=== PATIENT | male | born 1945 | race Caucasian/White ===

== ENCOUNTER 2021-12-12 11:46 | Outpatient (CLI) | payer OTHER, SELFPAY ==
--- OUTSIDE RECORDS SUMMARY | 2021-12-12 08:59 | XMS_ITS | Encounter Summary ---
:1945 Author Organization [facility] Address [address] [place] [address] Care Team Providers Name Role Phone Eric Cervantes Primary Care Provider Unavailable Reason for Visit Reason Comments [facility] Encounter Details Date Type Department Care Team Description 01/20/2007 Office Visit [facility] in [place] Billy Arcos [facility] [address] [place] [address] Social History Tobacco Use Types Packs/Day Years Used Date Smoking Tobacco: Never Alcohol Use Standard Drinks/Week Comments Yes 3.3 (1 standard drink = 0.6 oz pure alco hol) occ glass wine Sex Assigned at Date Recorded Male 06/16/2020 9:59 AM CDT documented as of this encounter Plan of Treatment Not on filedocumented as of this encounter Visit Diagnoses Not on filedocumented in this encounter Care Teams Medical Cash Poster Relationship Specialty Start Date End Date Eric Cervantes PCP - General 08/29/04 04/13/15 documented as of this encounter
[2021-12-12 11:44] LABS: Albumin* 4.7 g/dL (3.3-5.0); Chloride* 103 mmol/L (96-114)
[2021-12-12 11:45] LABS: Potassium* 3.9 mmol/L (3.6-5.1); Sodium* 138 mmol/L (135-149)
[2021-12-12 11:47] LABS: Carbon Dioxide* 25 mmol/L (20-32); Cholesterol* 163 mg/dL (90-199); Creatinine* 1.4 mg/dL (0.5-1.5); Estimated Glomerular Filt Rate 53 ml/min
[2021-12-12 11:48] LABS: Alanine Aminotransferase* 24 U/L (4-50); Alkaline Phosphatase* 60 U/L (40-150); Aspartate Amino Transferase* 30 U/L (12-35); Bilirubin Total* 0.9 mg/dL (0.1-1.5); Blood Urea Nitrogen* 25 mg/dL (7-30); Calcium* 9.9 mg/dL (8.4-10.6); Glucose* 112 mg/dL (60-115); HDL Cholesterol* 52 mg/dL (>=40); LDL Cholesterol Calculated 95 mg/dL (<100); Total Protein* 7.4 g/dL (6.0-8.3); Triglycerides* 80 mg/dL (40-149)
[2021-12-12 12:18] LABS: PSA Screen* 0.17 ng/mL (0.10-4.00)
== END 2021-12-12 11:47 | disposition home or self-care (01) ==
PROVIDERS: PCP Family Medicine; Visit Provider Family Medicine
DX: E78.5 Hyperlipidemia, unspecified (principal); I10 Essential (primary) hypertension; R73.01 Impaired fasting glucose; E66.9 Obesity, unspecified; Z12.5 Encounter for screening for malignant neoplasm of prostate
CPT/HCPCS: 80053; 80061; 84153

== ENCOUNTER 2022-06-26 09:26 | Outpatient (CLI) | payer MEDICARE, SELFPAY | END 2022-06-26 09:27 | disposition home or self-care (01) | LOC: NFLDREF 09:27 | PROVIDERS: PCP Family Medicine; Visit Provider Family Medicine | DX: I10 Essential (primary) hypertension (principal); E78.5 Hyperlipidemia, unspecified | CPT/HCPCS: 80053 ==

== ENCOUNTER 2022-12-19 10:02 | Outpatient (CLI) | payer MEDICARE, SELFPAY | END 2022-12-19 10:03 | disposition home or self-care (01) | LOC: NFLDREF 12-23 02:20 | PROVIDERS: PCP Family Medicine; Referring Provider Family Medicine; Visit Provider Family Medicine | DX: E78.5 Hyperlipidemia, unspecified (principal); I10 Essential (primary) hypertension; R73.01 Impaired fasting glucose; E66.9 Obesity, unspecified; Z13.9 Encounter for screening, unspecified; C61 Malignant neoplasm of prostate | CPT/HCPCS: 80053; 80061; 84153 ==

== ENCOUNTER 2023-12-16 08:20 | Outpatient (CLI) | payer MEDICARE, SELFPAY ==
--- OUTSIDE RECORDS SUMMARY | 2023-12-18 11:25 | XMS_ITS | Clinical Summary ---
Author Organization [facility] Address [address] [place] [address] Care Team Providers Care Elevator Pilot Name Role Phone Unavailable Primary Care Provider Unavailabl e Source Comments Patient records contain information from all sites at [facility]. For routine questions regarding patient records, call [phone] during business hours, M-F 8:00 AM - 5:00 PM Central Time. Record requests for emergency care only can be directed to [phone] at any time.[facility] Allergies Active Allergy Reactions Criticality Noted Date Comments Hydrocodone Rash 05/22/2013 HYDROCODONE - Adverse reactions Medications lisinopril (PRINIVIL,ZESTRI L) 10 mg tablet 09/22/2017 Act hoa sildenafil (REVATIO) 20 mg tablet Take one tab daily 02/25/2017 Active sucralfate (CARAFATE) 1 gram tablet 09/22/2017 Active triamterene-hydr oCHLOROthiazide (DYAZIDE) 37.5-25 mg per capsule 09/22/2017 Active omeprazole (PriLOSEC) [address] capsule daily. Active rosuvastatin (CRESTOR) 5 mg tablet 12/23/2019 Active KRILL OIL ORAL Take by mouth daily. Active Active Problems Problem Noted Date Diagnosed Date Hypertension Essential Benign 05/22/2013 Overview (07/16/2016): Benign Essential Hypertension Essential hypertension, benign Chronic Kidney Disease Stage 3 Glomerular Filtration Rate 30 To 59 05/22/2013 Overview (07/16/2016): Chronic Kidney Disease, Stage III (Moderate) Chronic kidney disease, stage III (moderate) CR 1.27 01/22/2010 GFRESTIMATED 57 01/22/2010 Family History Medical History Relation Name Comments Melanoma Cousin Asthma Father Ambrocio Hypertension Mother jerzy Melanoma Paternal Cousin 1 Melanoma Paternal Cousin 2 Melanoma Paternal Cousin 3 Melanoma Paternal Cousin 4 Relation Name Status Comments Cousin Father Ambrocio Mother jerzy Paternal Cousin 1 Alive Paternal Cousin 2 Alive Paternal Cousin 3 Alive Paternal Cousin 4 Alive Social History Tobacco Use Types Packs/Day Years Used Date Smoking Tobacco: Never Smokeless Tobacco: Never Alcohol Use Standard Drinks/Week Comments Yes 30 (1 standard drink = 0.6 oz pu re alcohol) Humiliation, Afraid, Rape, and Kick questionnair e Answer Date Recorded Within the last year, have y ou been afraid of your partner or ex-partner? No 07/02/2022 Within the last year, have y ou been humiliated or emotionally abused in other ways by your partner or ex-partner? No Within the last year, have y ou been kicked, hit, slapped, or otherwise physically hurt by your partner or ex-partner? No 07/02/2022 Within the last year, have y ou been raped or forced to have any kind of sexual activity by your partner or ex-partner? No 07/02/2022 Social Connection and Isolat ion Panel [NHANES] Answer Date Recorded In a typical week, how many times do you talk on the phone with family, friends, or neighbors? Twice a week 07/02/2022 How often do you get togethe r with friends or relatives? Once a week 07/02/2022 How often do you attend chur or christianity services? 1 to 4 times per year 07/02/2022 Do you belong to any clubs o r organizations such as gnosticist groups, unions, fraternal or athletic groups, or school groups? Yes 07/02/2022 How often do you attend meet ings of the clubs or organizations you belong to? More than 4 times per year 07/02/2022 Are you , , di vorced, , never , or living with a partner? 07/02/2022 AUDIT-C Answer Date Recorded Q1: How often do you have a drink containing alc ohol? 2-3 times a week 07/02/2022 Q2: How many drinks containi ng alcohol do you have on a typical day when you are drinking? 1 or 2 07/02/2022 Q3: How often do you have si x or more drinks on one occasion? Never 07/02/2022 Overall Financial Resource Strain (CARDIA) Answe r Date Recorded How hard is it for you to pa y for the very basics like food, housing, medical care, and heating? Not very hard 07/02/2022 [facility] of Occupat ional Health - Occupational Stress Questionnaire Answer Date Recorded Do you feel stress - tense, restless, nervous, or anxious, or unable to sleep at night because your mind is troubled all the time - these days? Only a little 07/02/2022 Exercise Vital Sign Answer Date Recorde d On average, how many days pe r week do you engage in moderate to strenuous exercise (like a brisk walk)? 3 days 07/02/2022 On average, how many minutes do you engage in exercise at this level? 60 min 07/02/2022 Hunger Vital Sign Answer Date Recorded Within the past 12 months, y ou worried that your food would run out before you got the money to buy more. Never true 07/03/19 23 Within the past 12 months, t he food you bought just didn't last and you didn't have money to get more. Never true 07/02/2022 PRAPARE - Transportation Answer Date Re corded In the past 12 months, has l ack of transportation kept you from medical appointments or from getting medications? No 10/2022 In the past 12 months, has l ack of transportation kept you from meetings, work, or from getting things needed for daily living? No 07/02/2022 Housing Stability Vital Sign Answer Luis E e Recorded In the last 12 months, was t here a time when you were not able to pay the mortgage or rent on time? No 07/02/2022 In the last 12 months, how many places have you lived? 1 07/02/2022 In the last 12 months, was t here a time when you did not have a steady place to sleep or slept in a alf (including now)? No 07/02/2022 Nutrition Answer Date Recorded On average, how many serving s of fruits and vegetables do you eat per day (serving size is equal to 1 cup or approximately the size of a tennis ball)? 0-1 07/02/2022 Dental Answer Date Recorded Dental: Regular Dentist Yes 02/24/19 Employment Answer Date Recorded Employment status N/A 07/02/2022 Education Answer Date Recorded What is the highest level of school you have completed or the highest degree you have received? Master's degree (e.g., MA, MS, Keysha, MEd, SALES APPOINTMENT COORDINATOR, CHERI) 02/24/2021 Sex and Gender Information Value Date Recorded Sex Assigned at Male 02/24/2021 10:06 AM OUTBOARD MOTOR INSPECTOR Legal Sex Male 9:54 AM OUTBOARD MOTOR INSPECTOR Gender Identity Male 02/24/2021 10:06 AM OUTBOARD MOTOR INSPECTOR Sexual Orientation Straight 02/24/2021 10 :06 AM OUTBOARD MOTOR INSPECTOR Last Filed Vital Signs Vital Sign Reading Time Taken Comments Blood Pressure 128/90 05/03/2021 9:00 AM OUTBOARD MOTOR INSPECTOR Pulse 59 05/03/2021 9:00 AM OUTBOARD MOTOR INSPECTOR Temperature - - Respiratory Rate - - Oxygen Saturation - - Inhaled Oxygen Concentration - - Weight - - Height - - Body Mass Index - - Plan of Treatment Upcoming Encounters Date Type Department Care Team (Late st Contact Info) Description 01/26/2024 11:15 AM OUTBOARD MOTOR INSPECTOR Office Visit Department of Dermatology in [address] [phone] Alejandro Shanks M.D. [address] [place] [phone] Discharge Disposition: Home or Self Care Health Maintenance Due Date Last Done Comments Hepatitis C Screening 1945 Office Visit for Blood Press ure Check / Re-check 1945 Creatinine Level (Kidney Fun ction Test) 08/09/2021 08/09/2020 Potassium Level 08/09/2021 08/09/2020 Sodium Level 08/09/2021 08/09/2020 Depression Screening (Annual PHQ-2) 02/24/2023 Fall Risk Screen (Annual) 02/24/2023 COVID-19 Vaccine (2023-2 5 season) 2023 11/12/2022, 11/05/2021, 06/04/2021, Additional history exists Influenza Vaccine (#1) 2023 3, 11/05/2021, 11/29/2020, Additional history exists DTaP,Tdap,and Td Vaccines (2 - Td or Tdap) 11/26/2023 11/25/2013, 08/15/2013 Colonoscopy Discontinued 08/29/2004 Colorectal Cancer Screening Discontinued Pneumococcal vaccine (65+ years) Completed 11/22/19 15, 01/10/2012 Zoster Vaccines Completed 01/11/2020, 10/06/2019 RSV vaccine - (32-3 6 weeks) or 60+ years Completed 12/10/2022 CT Colonography Discontinued Cologuard Discontinued FIT Discontinued Insurance [facility]
--- OUTSIDE RECORDS SUMMARY | 2023-12-18 11:25 | XMS_ITS | Continuity of Care Document ---
Author Organization [facility] Address [address] [place] [address] [address] [place] [address] Phone Care Team Providers Care Supervisor Metal Cans Name Role Phone Corey BEAVERS, Amijasmeet Unavailable Unavailable Procedures Procedure Date Office consultation, moderate 0 X-ray exam of neck spine2-3 views Advance Directives Directive Yes / No Effective Date File Name No Information Encounters Encounter Description Practice Location Reason(s) For Visit Diagnoses Date Provider Providers Copied on Encounter [facility], [address] [place] [address], [place], [address], [place] tel:[phone] [facility] No Information 2 Corey Live. [facility], [address] [place] [address] [address], [place], [place], [id number], [place]. tel:[phone] Office consultation, moderate [facility], [address] [place], [place] [address], [place], [address], [place] tel:[phone] [facility] No Information 0 Virgilio Rojas. [facility], [address] [facility] , [place], [address], [place]. tel:[phone] Referring Provider: Last Donohue, [facility] [address] [place] [address], [address]. tel:[phone] Family History Family Member Type Diagnosis Age At Onset No Information Payers Payer name Insurance type Covered democrat ID Hany osborne(s) [facility] [id number] Social History Type Description Quantity Date Captured Comments Sex Male Smoking Status No Information Chief Complaint And Reason For Visit No Information Reason For Referral Reason For Referral No Information History Of Present Illness Encounter Date Complaint History Of Prese nt Illness No Information Functional Status Date Functional Assessmen t No Information Instructions Date Instruction Additional Infor mation No Information Assessments Type Assessment Date No Information Patient Care Teams Name Effective Dates (start - stop) Status Members No Information
--- OUTSIDE RECORDS SUMMARY | 2023-12-18 11:25 | XMS_ITS ---
Author Organization [facility] Address [address] [place] [address] Care Team Providers Care Egg Grader Name Role Phone Unavailable Unavailable Unavailable Surgery Details Not on file Complications Check Surgery Details section. Procedure Estimated Blood Loss Check Surgery Details section. Procedure Findings Check Surgery Details section. Procedure Specimens Taken Check Surgery Details section.
--- OUTSIDE RECORDS SUMMARY | 2023-12-18 11:25 | XMS_ITS | Referral Summary ---
Author Organization [facility] Address [address] [place] [address] Care Team Providers Care Manager Wireless Name Role Phone Unavailable Primary Care Provider Unavailabl e Source Comments Patient records contain information from all sites at [facility]. For routine questions regarding patient records, call [phone] during business hours, M-F 8:00 AM - 5:00 PM Central Time. Record requests for emergency care only can be directed to [phone] at any time.[facility] Allergies Active Allergy Reactions Criticality Noted Date [...] (moderate) CR 1.27 01/22/2010 GFRESTIMATED 57 01/22/2010 Social History Tobacco Use Types Packs/Day Years [...] 07/02/2022 How often do you attend chur ch or sikhism services? 1 to 4 times per year 07/02/2022 Do you belong to any clubs o r organizations such as adventist groups, unions, fraternal or athletic groups, or [...] care, and heating? Not very hard 07/02/2022 [facility] [place] of Occupat ional Health - Occupational Stress [...] place to sleep or slept in a longterm (including now)? No 07/02/2022 Nutrition Answer Date [...] Master's degree (e.g., MA, MS, Keysha, MEd, CORE PLACER, CHERI) 02/24/2021 Sex and Gender Information Value Date Recorded Sex Assigned at Male 02/24/2021 10:06 AM BLAST FURNACE SUPERVISOR Legal Sex Male 9:54 AM BLAST FURNACE SUPERVISOR Gender Identity Male 02/24/2021 10:06 AM BLAST FURNACE SUPERVISOR Sexual Orientation Straight 02/24/2021 10 :06 AM BLAST FURNACE SUPERVISOR Last Filed Vital Signs Vital Sign Reading Time Taken Comments Blood Pressure 128/90 05/03/2021 9:00 AM BLAST FURNACE SUPERVISOR Pulse 59 05/03/2021 9:00 AM BLAST FURNACE SUPERVISOR Temperature - - Respiratory Rate - - Oxygen Saturation - - Inhaled Oxygen Concentration - - Weight - - Height - - Body Mass Index - - Plan of Treatment Upcoming Encounters Date Type Department Care Team (Late st Contact Info) Description 01/26/2024 11:15 AM BLAST FURNACE SUPERVISOR Office Visit Department of Dermatology in [address] [phone] Alejandro Shanks M.D. [address] [place] [phone] Discharge Disposition: Home or Self Care Insurance [facility]
--- OUTSIDE RECORDS SUMMARY | 2023-12-18 11:26 | XMS_ITS | Encounter Summary ---
Author Organization [facility] Address [address] [place] [address] Care Team Providers Care Hospitalist Physician Name Role Phone Lori Wyatt MD Primary Care Provider Bennett Morse MD Unavailable Adelaida Winter MD Unavailable Unav ailable Heber Trejo MD Unavailable [phone] Kamila Boggs RN Unavailable [phone] Lori Wyatt MD Unavailable Heber Trejo MD Unavailable Tammy Maier CNP Unavailable Polly Wylie PA-C Unavailable [phone] Encounter Details Date Type Department Care Team (Late st Contact Info) Description 02/25/2017 [facility] Medical Advice [facility] and [facility] [address] [place] [address] Heber Trejo MD [address] [facility] [address] [place] [address] Social History Tobacco Use Types Packs/Day Years Used Date Smoking Tobacco: Never Smokeless Tobacco: Never Alcohol Use Standard Drinks/Week Comments Yes 0 (1 standard drink = 0.6 oz pur e alcohol) occ glass wine Sex and Gender Information Value Date Recorded Sex Assigned at Male 06/16/2020 9:59 AM CDT Legal Sex Male 4:14 AM PAN GREASER Gender Identity Male 06/16/2020 9:59 AM CDT Sexual Orientation Not on file documented as of this encounter Plan of Treatment Not on file documented as of this encounter Visit Diagnoses Not on filedocumented in this encounter Care Teams Hospitalist Physician Relationship Specialty Start Date End Date Lori Wyatt MD [facility] [address] [place] [address] PCP - General Internal Medicine 04/14/15 Bennett Morse MD [facility] [place] [address] Urology 04/14/15 Adelaida Winter MD [facility] [place] [address] Urology 06/28/15 Heber Trejo MD [address] [place] [address] Urology 09/07/15 Kamila Boggs, RN Registered Nurse Urology 09/07/15 09/10/22 Lori Wyatt MD [facility] [address] [place] [address] Referring Physician Internal Medicine 09/07/15 Heber Trejo MD [address] [place] [address] Assigned Surgical Provider 12/17/19 11/15/22 Tammy Maier CNP [address] [place] [address] Assigned Surgical Provider 11/16/22 05/16/23 Polly Wylie PA-C [address] [place] [address] Assigned Surgical Provider 05/17/23 documented as of this encounter
--- OUTSIDE RECORDS SUMMARY | 2023-12-18 11:26 | XMS_ITS | Referral Summary ---
Author Organization [facility] Address [address] [place] [address] Care Team Providers Care Robotics Testing Technician Name Role Phone Lori Wyatt MD Primary Care Provider Bennett Morse MD Unavailable Adelaida Winter MD Unavailable Unav ailable WarjaskHeber MD Unavailable [phone] Lori Wyatt MD Unavailable [phone] Polly Wylie PA-C Unavailable Encounters Date Type Department Care Team Description 12/12/2023 [facility] [address] [place] [address] Polly Wylie PA-C Prior Auth - Medication (sildenafil (REVATIO) 20 MG tablet) from Last 3 Months Allergies No known active allergies Medications lisinopril (PRINIVIL,ZESTRIL ) 20 MG tablet 10 mg daily Takes 10 mg BID Active sucralfate (CARAFATE) 1 GM tablet 2 times daily as needed Active omeprazole (PRILOSEC) 20 MG capsule daily Active acetaZOLAMIDE (DIAMOX) 250 MG tablet 250 mg daily Active sildenafil (REVATIO) 20 MG tabletIndications :Erectile dysfunction following radical prostatectomy Take one tab daily 90 tablet 11 8 Active aspirin 81 MG EC tablet Take 81 mg by mouth daily Active triamterene-HCTZ (DYAZIDE) 50-25 MG capsule Take 1 capsule by mouth every morning Active lisinopril (ZESTRIL) 10 MG tablet 0 Active sildenafil (REVATIO) 20 MG tabletIndications :Erectile dysfunction after radical prostatectomy Take 1 tablet (20 mg) by mouth 3 times daily 90 tablet 11 0 Active Additional Information Patient not taking.Reported on 04/22/2022 fish oil-omega-3 fatty acids 1000 MG capsule Take 2 g by mouth daily Active rosuvastatin (CRESTOR) 5 MG tablet 1 Active sildenafil (REVATIO) 20 MG tabletIndications :Prostate cancer (H) Take 1 tablet (20 mg) by mouth daily for 360 days 90 tablet 3 4 025 Active Active Problems Patient Care Coordination No te Formatting of this note migh t be different from the original. 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 Provider to review Chronic kidney disease, stage III (moderate) Overview (01/22/2010): CR 1.27 01/22/2010 GFRESTIMATED 57 01/22/2010 Immunizations Name Administration Dates Next Due Flu 65+ (Fluad) 10/28/2018 Flu, Unspecified 11/08/2010 Hepatitis A (ADULT 19+) 09/22/2002,08/23/2001 Hepatitis B, Adult 03/26/2003,09/22/2002, 003 Influenza (H1N1) 02/14/2009 Influenza (High Dose) Trival ent,PF (Fluzone) 12/04/2017,11/27/2016,11/21/2014,2013 Influenza (IIV3) PF 2012 Influenza Vaccine >6 months,quad, PF 11/15/2015 Influenza, seasonal, injectable, PF 11/08/2009 Swedish Encephalitis IM 02/22/2011,01/25/2011 Pneumo Conj 13-V (2010&after) 11/21/2014 Pneumococcal 23 valent 01/10/2012 TDAP Vaccine (Adacel) 11/25/2013 Typhoid IM 01/25/2011 Social History Tobacco Use Types Packs/Day Years Used Date Smoking Tobacco: Never Smokeless Tobacco: Never Tobacco Cessation:Counseling Given: Not Answered Alcohol Use Standard Drinks/Week Comments Yes 0 (1 standard drink = 0.6 oz pur e alcohol) occ glass wine PHQ-2 Answer Date Recorded PHQ-2 Score 0 11/05/2022 Adolescent Education Answer Date Record ed Getting School Help Needed Not on file 12/05 Sex and Gender Information Value Date Recorded Sex Assigned at Male 06/16/2020 9:59 AM CDT Legal Sex Male 4:14 AM FINANCIAL ASSISTANT Gender Identity Male 06/16/2020 9:59 AM CDT Sexual Orientation Not on file Last Filed Vital Signs Vital Sign Reading Time Taken Comments Blood Pressure 134/82 11/02/2018 11:44 AM CDT Pulse 57 11/02/2018 11:44 AM CDT Temperature 37 ??C (98.6 ??F) 09/20/2015 7:02 AM CDT Respiratory Rate 17 09/20/2015 7:02 AM CDT Oxygen Saturation 95% 09/20/2015 7:02 AM CDT Inhaled Oxygen Concentration - - Weight 97.5 kg (215 lb) 11/05/2022 12:18 PM CDT Height 182.9 cm (6') 11/02/2018 11:44 AM CDT Body Mass Index 29.16 11/02/2018 11:44 AM CDT Plan of Treatment Not on file Procedures Procedure Name Priority Date/Time Associated Diagnosis Comments CBC WITH PLATELETS Routine 09/19/2015 5: 16 AM CDT Prostate cancer (H) BASIC METABOLIC PANEL Routine 09/19/2015 5:16 AM CDT Prostate cancer (H) ZZHC COLONOSCOPY THRU STOMA, DIAGNOSTIC Routine 08/29/2004 from Last 3 Months or Most Recently Relevant to Health Maintenance Results * (ABNORMAL) Basic metabolic panel (09/19/2015 5:16 AM CDT) Sodium 143 133 - 144 mmol/L [facility] Potassium 3.7 3.4 - 5.3 mmol/L [facility] Chloride 111(H) 94 - 109 mmol/L [facility] Carbon Dioxide 24 20 - 32 mmol/L [facility] Anion Gap 8 3 - 14 mmol/L [facility] Glucose 132(H) 70 - 99 mg/dL [facility] Urea Nitrogen 18 7 - 30 mg/dL [facility] Creatinine 1.23 0.66 - 1.25 mg/dL [facility] GFR Estimate 58(L) >60 mL/min/1.7 m2 [facility] Comment:Non GFR Calc GFR Estimate If Black 71 >60 mL/min/1.7 m2 [facility] Comment: GFR Calc Calcium 7.9(L) 8.5 - 10.1 mg/dL [facility] Blood specimen (specimen) 09/19/2015 5:16 AM CDT 09/19/2015 5:17 AM CDT us Lori Joseph MD LAB - BLOOD ORDERABLES Final Result Performing Organization Address City/State/[facility] Co de Phone Number [facility] [address] [place] [address] * (ABNORMAL) CBC with platelets (09/19/2015 5:16 AM CDT) WBC 9.0 4.0 - 11.0 10e9/L [facility] RBC Count 4.23(L) 4.4 - 5.9 10e12/L [facility] Hemoglobin 13.3 13.3 - 17.7 g/dL [facility] Hematocrit 37.2(L) 40.0 - 53.0 % [facility] MCV 88 78 - 100 fl [facility] MCH 31.4 26.5 - 33.0 pg [facility] MCHC 35.8 31.5 - 36.5 g/dL [facility] RDW 12.2 10.0 - 15.0 % [facility] Platelet Count 187 150 - 450 10e9/L [facility] Blood specimen (specimen) 09/19/2015 5:16 AM CDT 09/19/2015 5:17 AM CDT us Lori Joseph MD LAB - BLOOD ORDERABLES Final Result [facility] [address] [place] [address] * COLONOSCOPY (08/29/2004) us J.A. Dye Range Operator PROCEDURES Final Result Performing Organization Address City/[facility]/ZIP Co de Phone Number [facility]/[place] [address] from Last 3 Months or Most Recently Relevant to Health Maintenance Insurance [facility] MEDICARE [employer] MED[employer]ARE Advance Directives For more information, please contact: [phone] * Full Code (Latest Code Status on File) Date Activated Date Inactivated Comments 09/18/2015 4:08 PM 09/20/2015 4:59 PM * Full Code Date Activated Date Inactivated Comments 09/18/2015 2:44 PM 09/18/2015 4:08 PM Care Teams Robotics Testing Technician Relationship Specialty Start Date End Date Lori Wyatt MD [facility] [address] [place] [address] PCP - General Internal Medicine 04/14/15 Bennett Morse MD [facility] [address] [address] Urology 04/14/15 Adelaida Winter MD [facility] [address] [address] Urology 06/28/15 Heber Trejo MD [address] [facility] [address] [place] [address] Urology 09/07/15 Lori Wyatt MD [facility] & [address] [address] Referring Physician Internal Medicine 09/07/15 Polly Wylie PA-C [address] [place] [address] Assigned Surgical Provider 05/17/23
--- OUTSIDE RECORDS SUMMARY | 2023-12-18 11:26 | XMS_ITS | Clinical Summary ---
Author Organization [facility] Address [address] [place] [address] Care Team Providers Care Fruit Harvester Machine Operator Name Role Phone Lori Wyatt MD Primary Care Provider Bennett Morse MD Unavailable Adeladia Winter MD Unavailable Unav ailable WarjasHeber MD Unavailable [phone] Lori Wyatt MD Unavailable [phone] Polly Wylie PA-C Unavailable [phone] Allergies No known active allergies Medications lisinopril (PRINIVIL,ZESTRIL ) 20 MG tablet 10 mg daily Takes 10 mg BID Active sucralfate (CARAFATE) 1 GM tablet 2 times daily as needed Active omeprazole (PRILOSEC) 20 MG capsule daily Active acetaZOLAMIDE (DIAMOX) 250 MG tablet 250 mg daily Active sildenafil (REVATIO) 20 MG tabletIndications :Erectile dysfunction following radical prostatectomy Take one tab daily 90 tablet 8 Active aspirin 81 MG EC tablet Take 81 mg by mouth daily Active triamterene-HCTZ (DYAZIDE) 50-25 MG capsule Take 1 capsule by mouth every morning Active lisinopril (ZESTRIL) 10 MG tablet 0 Active sildenafil (REVATIO) 20 MG tabletIndications :Erectile dysfunction after radical prostatectomy Take 1 tablet (20 mg) by mouth 3 times daily 90 tablet 0 Active Additional Information Patient not taking.Reported [...] migh t be different from the original. [email or web address] Problem Noted Date Diagnosed Date Somatic dysfunction [...] (01/22/2010): CR 1.27 01/22/2010 GFRESTIMATED 57 01/22/2010 Encounters Date Type Department Care Team Description 12/12/2023 Telephone [facility] [address] [place] [address] Polly Wylie PA-C Prior Auth - Medication (sildenafil (REVATIO) 20 MG tablet) from Last 3 Months Immunizations Name Administration Dates Next Due Flu 65+ (Fluad) 10/28/2018 Flu, Unspecified 11/08/2010 Hepatitis A (ADULT 19+) 09/22/2002,08/23/2001 Hepatitis B, Adult 03/26/2003,09/22/2002, 003 Influenza (H1N1) 02/14/2009 Influenza (High Dose) Trival ent,PF (Fluzone) 12/04/2017,11/27/2016,11/21/2014,2013 Influenza (IIV3) PF 2012 Influenza Vaccine >6 months,quad, PF 11/15/2015 Influenza, seasonal, injectable, PF 11/08/2009 Macedonian Encephalitis IM 02/22/2011,01/25/2011 Pneumo Conj 13-V (2010&after) 11/21/2014 Pneumococcal 23 valent 01/10/2012 TDAP Vaccine (Adacel) 11/25/2013 Typhoid IM 01/25/2011 Family History Medical History Relation Comments Cancer - colorectal No family hx of Social History Tobacco Use Types Packs/Day Years [...] AM CDT 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 Gender Identity Male 06/16/2020 9:59 AM CDT [...] 11/02/2018 11:44 AM CDT Plan of Treatment Health Maintenance Due Date Last Done Comments ADVANCE CARE PLANNING 1946 ANNUAL REVIEW OF HM ORDERS 1946 CT COLONOGRAPHY 1946 FIT 1946 FLEX SIG 1946 LIPID 1946 MICROALBUMIN 1946 sDNA (Cologuard) 1946 URINALYSIS 12/16/1947 HEPATITIS C SCREENING 1964 FALL RISK ASSESSMENT 12/16/2011 MEDICARE ANNUAL WELLNESS VISIT 12/16/2011 COLONOSCOPY 08/29/2014 08/29/2004 COLORECTAL CANCER SCREENING 08/29/2014 BMP 09/18/2016 09/19/2015, 08/24, 01/22/2010 HEMOGLOBIN 09/18/2016 09/19/2015, 08/25, 09/12/2015, Additional history exists GLUCOSE 09/18/2018 09/19/2015, 08/24, 01/22/2010 RSV VACCINE (1 - 1-dose 75+ series) 2021 PHQ-2 (once per calendar year) 2023 11/05/2022, 04/22/2022, 06/19/2020, Additional history exists COVID-19 Vaccine ( season) 2023 11/12/2022, 11/05/2021, 06/04/2021, Additional history exists INFLUENZA VACCINE (#1) 2023 3, 11/05/2021, 11/29/2020, Additional history exists DTAP/TDAP/TD IMMUNIZATION (2 - Td or Tdap) 11/26/2023 11/25/2013, 08/15/2013 Pneumococcal Vaccine: 65+ Years Completed 11/21/2014, 01/10/2012 ZOSTER IMMUNIZATION Completed 01/11/2020, 0 HPV IMMUNIZATION Aged Out No longer e ligible based on patient's age to complete this topic MENINGITIS IMMUNIZATION Aged Out No l onger eligible based on patient's age to complete this topic RSV MONOCLONAL ANTIBODY Aged Out No l onger eligible based on patient's age to complete this topic Procedures Procedure Name Priority Date/Time Associated Diagnosis [...] CDT) Sodium 143 133 - 144 mmol/L [facility] Potassium 3.7 3.4 - 5.3 mmol/L [facility] Chloride 111(H) 94 - 109 mmol/L [facility] Carbon Dioxide 24 20 - 32 mmol/L [facility] Anion Gap 8 3 - 14 mmol/L [facility] Glucose 132(H) 70 - 99 mg/dL [facility] Urea Nitrogen 18 7 - 30 mg/dL [facility] Creatinine 1.23 0.66 - 1.25 mg/dL [facility] GFR Estimate 58(L) >60 mL/min/1.7 m2 [facility] Comment:Non GFR Calc GFR Estimate If Black 71 >60 mL/min/1.7 m2 [facility] Comment: GFR Calc Calcium 7.9(L) 8.5 - 10.1 mg/dL [facility] Blood specimen (specimen) 09/19/2015 5:16 AM CDT 09/19/2015 5:17 AM CDT us Lori Joseph MD LAB - BLOOD ORDERABLES Final Result Performing Organization Address City/State/[facility] Co de Phone Number [facility] [address] [place] [address] * (ABNORMAL) CBC with platelets (09/19/2015 5:16 AM CDT) WBC 9.0 4.0 - 11.0 10e9/L [facility] RBC Count 4.23(L) 4.4 - 5.9 10e12/L [facility] Hemoglobin 13.3 13.3 - 17.7 g/dL [facility] Hematocrit 37.2(L) 40.0 - 53.0 % [facility] MCV 88 78 - 100 fl [facility] MCH 31.4 26.5 - 33.0 pg [facility] MCHC 35.8 31.5 - 36.5 g/dL [facility] RDW 12.2 10.0 - 15.0 % [facility] Platelet Count 187 150 - 450 10e9/L [facility] Blood specimen (specimen) 09/19/2015 5:16 AM CDT 09/19/2015 5:17 AM CDT us Lori Joseph MD LAB - BLOOD ORDERABLES Final Result [facility] [address] [place] [address] * COLONOSCOPY (08/29/2004) us J.A. Sales Clerk Food PROCEDURES Final Result Performing Organization Address City/[facility]/ZIP Co de Phone Number [facility]/[place] [address] from Last 3 Months or Most Recently Relevant to Health Maintenance Insurance [facility] MEDICARE [address] [place] [address] [address] [place] [address] [facility] [place] [address] Advance Directives For more information, please contact: [phone] * Full Code (Latest Code Status on File) Date Activated Date Inactivated Comments 09/18/2015 4:08 PM 09/20/2015 4:59 PM * Full Code Date Activated Date Inactivated Comments 09/18/2015 2:44 PM 09/18/2015 4:08 PM Care Teams Fruit Harvester Machine Operator Relationship Specialty Start Date End Date Lori Wyatt MD [facility] [address] [place] [address] PCP - General Internal Medicine 04/14/15 Bennett Morse MD [facility] [address] [address] Urology 04/14/15 Adelaida Winter MD [facility] [address] [address] Urology 06/28/15 Heber Trejo MD [address] [facility] [address] [place] [address] Urology 09/07/15 Lori Wyatt MD [address] [address] Referring Physician Internal Medicine 09/07/15 Polly Wylie PA-C [address] [place] [address] Assigned Surgical Provider 05/17/23
--- OUTSIDE RECORDS SUMMARY | 2023-12-18 11:26 | XMS_ITS | Encounter Summary ---
Author Organization [facility] Address [address] [place] [address]. [place] [address] Care Team Providers Care Ip/Mosaic Technician Name Role Phone Lori Wyatt MD Primary Care Provider Bennett Morse MD Unavailable Adelaida Winter MD Unavailable Unav ailable Heber Trejo MD Unavailable Kamila Boggs RN Unavailable [phone] Lori Wyatt MD Unavailable Heber Trejo MD Unavailable Tammy Maier CNP Unavailable Polly Wylie PA-C Unavailable [phone] Encounter Details Date Type Department Care Team (Late st Contact Info) Description 11/27/2020 [facility] [place] [address] [facility] [address] 4th [place] [address] Heber Trejo MD [address] [facility] [address] [place] [address] Social History Tobacco Use Types Packs/Day Years Used Date Smoking Tobacco: Never Smokeless Tobacco: Never Alcohol Use Standard Drinks/Week Comments Yes 0 (1 standard drink = 0.6 oz pur e alcohol) occ glass wine PHQ-2 Answer Date Recorded PHQ-2 Score 0 06/19/2020 Sex and Gender Information Value Date Recorded Sex Assigned at Male 06/16/2020 9:59 AM CDT 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 Gender Identity Male 06/16/2020 9:59 AM CDT Sexual Orientation Not on file documented as of this encounter Plan of Treatment Not on file documented as of this encounter Visit Diagnoses Not on filedocumented in this encounter Additional Health Concerns Assessment Noted Time PHQ-9 Depression Total Score: 1 11/03/19 19 11:41 AM CDT documented as of this encounter Care Teams Ip/Mosaic Technician Relationship Specialty Start Date End Date Lori Wyatt MD [facility] [address] [place] [address] PCP - General Internal Medicine 04/14/15 Bennett Morse MD [facility] [address] [address] Urology 04/14/15 Adelaida Winter MD [facility] [address] [address] Urology 06/28/15 Heber Trejo MD [address] [place] [address] [address] [place] [address] Urology 09/07/15 Kamila Boggs, RN Registered Nurse Urology 09/07/15 09/10/22 Lori Wyatt MD [facility] [address] [place] [address] Referring Physician Internal Medicine 09/07/15 Heber Trejo MD [address] [facility] [address] [place] [address] Assigned Surgical Provider 12/17/19 11/15/22 Tammy Maier CNP [address] [place] [address] Assigned Surgical Provider 11/16/22 05/16/23 Polly Wylie PA-C [facility] [place] [address] Assigned Surgical Provider 05/17/23 documented as of this encounter
--- OUTSIDE RECORDS SUMMARY | 2023-12-18 11:26 | XMS_ITS | Encounter Summary ---
Author Organization [facility] Address [address] [place] [address] Care Team Providers Care Mobile Pet Groomer Name Role Phone Lori Wyatt MD Primary Care Provider Bennett Morse MD Unavailable [phone] Adelaida Winter MD Unavailable Unav ailable Heber Trejo MD Unavailable [phone] Kamila Boggs RN Unavailable [phone] Lori Wyatt MD Unavailable [phone] Heber Trejo MD Unavailable [phone] Tammy Maier CNP Unavailable [phone] Polly Wylie PA-C Unavailable [phone] Encounter Details Date Type Department Care Team (Late st Contact Info) Description 08/26/2015 [facility] and [facility] [address] [facility] [address] [place] [address] Adelaida Winter MD INACTIVE IN [place] OF 06/23/2020 Social History Tobacco Use Types Packs/Day Years Used Date Smoking Tobacco: Never Smokeless Tobacco: Never Alcohol Use Standard Drinks/Week Comments Yes 0 (1 standard drink = 0.6 oz pur e alcohol) occ glass wine Sex and Gender Information Value Date Recorded Sex Assigned at Male 06/16/2020 9:59 AM CDT 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 Gender Identity Male 06/16/2020 9:59 AM CDT Sexual Orientation Not on file documented as of this encounter Plan of Treatment Not on file documented as of this encounter Visit Diagnoses Not on filedocumented in this encounter Care Teams Mobile Pet Groomer Relationship Specialty Start Date End Date Lori Wyatt MD [facility] [address] [place] [address] PCP - General Internal Medicine 04/14/15 Bennett Morse MD [facility] [address] [place] [address] Urology 04/14/15 Adelaida Winter MD [facility] [address] [address] Urology 06/28/15 Heber Trejo MD [address] [place] [address] Urology 09/07/15 Kamila Boggs, RN Registered Nurse Urology 09/07/15 09/10/22 Lori Wyatt MD [facility] [address] [place] [address] Referring Physician Internal Medicine 09/07/15 Heber Trejo MD [address] [place] [address] Assigned Surgical Provider 12/17/19 11/15/22 Tammy Maier CNP [address] [place] [address] Assigned Surgical Provider 11/16/22 05/16/23 Polly Wylie PA-C [address] [place] [address] Assigned Surgical Provider 05/17/23 documented as of this encounter
--- OUTSIDE RECORDS SUMMARY | 2023-12-18 11:26 | XMS_ITS | Encounter Summary ---
Author Organization [place] Address [address] [place] [address] Care Team Providers Care Condominium Manager Name Role Phone Lori Wyatt MD Primary Care Provider Bennett Morse MD Unavailable [phone] Adelaida Winter MD Unavailable Unav ailable Heber Trejo MD Unavailable [phone] Kamila Boggs RN Unavailable [phone] Lori Wyatt MD Unavailable [phone] Heber Trejo MD Unavailable Tammy Maier CNP Unavailable Polly Wylie PA-C Unavailable Encounter Details Date Type Department Care Team (Late st Contact Info) Description 08/22/2015 [facility] Medical Advice [facility] Urology and [facility] [address] [facility] [address]th [place] [address] Heber Trejo MD [address] [address] [facility] [address] [place] [address] Social History Tobacco Use Types Packs/Day Years Used Date Smoking Tobacco: Never Smokeless Tobacco: Never Alcohol Use Standard Drinks/Week Comments Yes 0 (1 standard drink = 0.6 oz pur e alcohol) occ glass wine Sex and Gender Information Value Date Recorded Sex Assigned at Male 06/16/2020 9:59 AM CDT 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 Gender Identity Male 06/16/2020 9:59 AM CDT Sexual Orientation Not on file documented as of this encounter Plan of Treatment Not on file documented as of this encounter Visit Diagnoses Not on filedocumented in this encounter Care Teams Condominium Manager Relationship Specialty Start Date End Date Lori Wyatt MD [facility] [address] [place] [address] PCP - General Internal Medicine 04/14/15 Bennett Morse MD [facility] [place] [address] Urology 04/14/15 Adelaida Winter MD [facility] [address] [address] Urology 06/28/15 Heber Trejo MD [address] [place] [address] Urology 09/07/15 Kamila Boggs, RN Registered Nurse Urology 09/07/15 09/10/22 Lori Wyatt MD [facility] [address] [place] [address] Referring Physician Internal Medicine 09/07/15 Heber Trejo MD [address] [place] [address] Assigned Surgical Provider 12/17/19 11/15/22 Tammy Maier CNP [address] [place] [address] Assigned Surgical Provider 11/16/22 05/16/23 Polly Wylie PA-C [address] [place] [address] Assigned Surgical Provider 05/17/23 documented as of this encounter
--- OUTSIDE RECORDS SUMMARY | 2023-12-18 11:26 | XMS_ITS | Encounter Summary ---
Author Organization [place] Address [address] [place] [address] Care Team Providers Care Seafood Packer Name Role Phone Lori Wyatt MD Primary Care Provider Bennett Morse MD Unavailable Adelaida Winter MD Unavailable Unav ailable Heber Trejo MD Unavailable [phone] Kamila Boggs RN Unavailable [phone] Lori Wyatt MD Unavailable Heber Trejo MD Unavailable Tammy Maier CNP Unavailable Polly Wylie PA-C Unavailable Encounter Details Date Type Department Care Team (Late st Contact Info) Description 10/17/2016 [facility] Advice [facility]rology and [facility] C[facility] [address] [facility] [address] 4th [place] [address] Heber Trejo MD [address] [facility] [address] [place] [address] Social History Tobacco Use Types Packs/Day Years Used Date Smoking Tobacco: Never Smokeless Tobacco: Never Alcohol Use Standard Drinks/Week Comments Yes 0 (1 standard drink = 0.6 oz pur e alcohol) occ glass wine Sex and Gender Information Value Date Recorded Sex Assigned at Male 06/16/2020 9:59 AM CDT 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 Gender Identity Male 06/16/2020 9:59 AM CDT Sexual Orientation Not on file documented as of this encounter Plan of Treatment Not on file documented as of this encounter Visit Diagnoses Not on filedocumented in this encounter Care Teams Seafood Packer Relationship Specialty Start Date End Date Lori Wyatt MD [facility] [address] [place] [address] PCP - General Internal Medicine 04/14/15 Bennett Morse MD [facility] [place] [address] Urology 04/14/15 Adelaida Winter MD [facility] [place] [address] Urology 06/28/15 Heber Trejo MD [address] [place] [address] Urology 09/07/15 Kamila Boggs, RN Registered Nurse Urology 09/07/15 09/10/22 Lori Wyatt MD [facility] [address] [place] [address] Referring Physician Internal Medicine 09/07/15 Heber Trejo MD [address] [place] [address] Assigned Surgical Provider 12/17/19 11/15/22 Tammy Maier CNP [address] [place] [address] Assigned Surgical Provider 11/16/22 05/16/23 Polly Wylie PA-C [address] [place] [address] Assigned Surgical Provider 05/17/23 documented as of this encounter
--- OUTSIDE RECORDS SUMMARY | 2023-12-18 11:26 | XMS_ITS | Encounter Summary ---
Author Organization [place] Address [address] [place] [address] Care Team Providers Care River Captain Name Role Phone Lori Wyatt MD Primary Care Provider [phone] Bennett Morse MD Unavailable Adelaida Winter MD Unavailable Unav ailable Heber Trejo MD Unavailable [phone] Kamila Boggs RN Unavailable [phone] Lori Wyatt MD Unavailable Heber Trejo MD Unavailable Tammy Maier CNP Unavailable [phone] Polly Wylie PA-C Unavailable Encounter Details Date Type Department Care Team (Late st Contact Info) Description 01/25/2017 [facility] and [facility] [address] [facility] [address] [place] [address] Heber Trejo MD [address] [facility] [address] [place] [address] Social History Tobacco Use Types Packs/Day Years Used Date Smoking Tobacco: Never Smokeless Tobacco: Never Alcohol Use Standard Drinks/Week Comments Yes 0 (1 standard drink = 0.6 oz pur e alcohol) occ glass wine Sex and Gender Information Value Date Recorded Sex Assigned at Male 06/16/2020 9:59 AM CDT 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 Gender Identity Male 06/16/2020 9:59 AM CDT Sexual Orientation Not on file documented as of this encounter Plan of Treatment Not on file documented as of this encounter Visit Diagnoses Not on filedocumented in this encounter Care Teams River Captain Relationship Specialty Start Date End Date Lori Wyatt MD [facility] [address] [place] [address] PCP - General Internal Medicine 04/14/15 Bennett Morse MD [facility] [place] [address] Urology 04/14/15 Adelaida Winter MD [facility] [place] [address] Urology 06/28/15 Heber Trejo MD [address] [place] [address] Urology 09/07/15 Kamila Boggs, RN Registered Nurse Urology 09/07/15 09/10/22 Lori Wyatt MD [facility] [address] [place] [address] Referring Physician Internal Medicine 09/07/15 Heber Trejo MD [address] [place] [address] Assigned Surgical Provider 12/17/19 11/15/22 Tammy Maier CNP [address] [place] [address] Assigned Surgical Provider 11/16/22 05/16/23 Polly Wylie PA-C [address] [place] [address] Assigned Surgical Provider 05/17/23 documented as of this encounter
--- OUTSIDE RECORDS SUMMARY | 2023-12-18 11:26 | XMS_ITS | Encounter Summary ---
Author Organization [place] Address [address] [place] [address]. [place] [address] Care Team Providers Care Plant Anatomy Teacher Name Role Phone Lori Wyatt MD Primary Care Provider Bennett Morse MD Unavailable [phone] Adelaida Winter MD Unavailable Unav ailable Heber Trejo MD Unavailable [phone] Kamila Boggs RN Unavailable [phone] Lori Wyatt MD Unavailable [phone] Heber Trejo MD Unavailable Tammy Maier CNP Unavailable Polly Wylie PA-C Unavailable [phone] Encounter Details Date Type Department Care Team (Late st Contact Info) Description 04/09/2022 [facility] [place] [address] [facility] [address] 4th [place] [address] Heber Trejo MD [address] [facility] [address] [place] [address] Social History Tobacco Use Types [...] AM CDT 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 No / Unsure 04/12/2022 11:07 AM STENCIL TYPIST documented as of this encounter Plan of Treatment Not on file documented as of this encounter Visit Diagnoses Not on filedocumented in this encounter Additional Health Concerns Assessment Noted Time PHQ-9 Depression Total Score: 1 11/03/19 19 11:41 AM CDT documented as of this encounter Care Teams Plant Anatomy Teacher Relationship Specialty Start Date End Date Lori Wyatt MD [facility] [address] [place] [address] PCP - General Internal Medicine 04/14/15 Bennett Morse MD [facility] [address] [place] [address] Urology 04/14/15 Adelaida Winter MD [facility] [address] [place] [address] Urology 06/28/15 Heber Trejo MD [address] [place] [address] [address] [place] [address] Urology 09/07/15 Kamila Boggs, RN Registered Nurse Urology 09/07/15 09/10/22 Lori Wyatt MD [facility] [address] [place] [address] Referring Physician Internal Medicine 09/07/15 Heber Trejo MD [address] [facility] [address] [place], [place] [address] Assigned Surgical Provider 12/17/19 11/15/22 Tammy Maier CNP [address] [place], [place] [address] Assigned Surgical Provider 11/16/22 05/16/23 Polly Wylie PA-C [address] [place] [address] Assigned Surgical Provider 05/17/23 documented as of this encounter
--- OUTSIDE RECORDS SUMMARY | 2023-12-18 11:26 | XMS_ITS | Encounter Summary ---
Author Organization [place] Address [address] [place] [address] Care Team Providers Care Shuttle Repairer Name Role Phone Mikhail Cervantes Primary Care Provider Alec Lo MD Unavailable [phone] Encounter Details Date Type Department Care Team (Late st Contact Info) Description 06/11/2010 12:55 PM CDT [facility] in [address] [id number] Jeremías Prado MD [address] [place] [address] Social History Tobacco Use Types Packs/Day Years Used Date Smoking Tobacco: Never Smokeless Tobacco: Never Alcohol Use Standard Drinks/Week Comments Yes 0 (1 standard drink = 0.6 oz pur e alcohol) occ glass wine Sex and Gender Information Value Date Recorded Sex Assigned at Male 06/16/2020 9:59 AM CDT 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 Gender Identity Male 06/16/2020 9:59 AM CDT Sexual Orientation Not on file documented as of this encounter Plan of Treatment Not on file documented as of this encounter Procedures Procedure Name Priority Date/Time Associated Diagnosis Comments SURGICAL PATHOLOGY EXAM Routine 06/11/2010 1:00 PM CDT documented in this encounter Results * Surgical pathology exam (06/11/2010 1:00 PM CDT) Copath Report Patient Name: BOB GALVEZ MR#: [id number] Specimen #: [id number] Collected: 06/11/2010 Received: 06/11/2010 Reported: 06/13/2010 16:02 Ordering Phy(s): JEREMÍAS PRADO SPECIMEN(S): Colon, stomach-body, antrum, cardia polyp FINAL DIAGNOSIS: Stomach, body, antrum, cardia polyp, biopsies: ? - ??Polypoid foveolar hyperplasia. ? - ??No evidence of Helicobacter pylori. Electronically signed out by: Raghavendra Kebede M.D. CLINICAL HISTORY: Specimen, stomach, body, antrum, cardia, polyp. ??64-year-old male with reflux symptoms, incidental polyp in cardia. GROSS: The container is labeled with the patient's name, medical record number, date of , and is designated as stomach, body, antrum, cardia polyp. ??Four tissues, less than 1 millimeter - 2 millimeters. (Raghavendra Kebede MD/aby ??06/12/2010) MICROSCOPIC: There are five portions of gastric mucosa. ??Four show oxyntic mucosa, and at least one of those also shows foveolar hyperplasia. ??The fifth portion of tissue is superficial and shows gastric foveolar hyperplasia. This appears to represent focal or polypoid foveolar hyperplasia which can be seen adjacent to ulcers, or as part of chemical gastropathy. ??The differential includes hyperplastic polyp. ??Malignant features are not identified and there is no evidence of dysplasia. ??There is no significant inflammation, and Helicobacter-lik e organisms are not seen on H&E stained sections. Rayne Sommers 06/13/2010 TESTING LAB LOCATION: [address] [place] [address] COLLECTION SITE: Client: [facility] Location: END (W) COPATH 06/11/2010 1:00 PM CDT 06/11/2010 4:22 PM CDT us Jeremías Prado MD LAB - [facility] Final Re sult COPATH documented in this encounter Visit Diagnoses Not on filedocumented in this encounter Care Teams Shuttle Repairer Relationship Specialty Start Date End Date [place] PCP - General 08/29/04 04/13/15 Alec Johnson MD [address] [place] [address] PCP - Surgery Surgery 06/01/10 01/24/14 documented as of this encounter
--- OUTSIDE RECORDS SUMMARY | 2023-12-18 11:26 | XMS_ITS | Encounter Summary ---
Author Organization [place] Address [address] [place] [address] Care Team Providers Care Precast Concrete Ironworker Name Role Phone Lori Wyatt MD Primary Care Provider Bennett Morse MD Unavailable Adelaida Winter MD Unavailable Unav ailable Heber Trejo MD Unavailable [phone] Kamila Boggs RN Unavailable [phone] Lori Wyatt MD Unavailable Heber Trejo MD Unavailable Tammy Maier CNP Unavailable Polly Wylie PA-C Unavailable [phone] Encounter Details Date Type Department Care Team (Late st Contact Info) Description 09/28/2018 [facility]rology and [facility] and Urologic Cancers [address] [facility] [address] 4th [place] [address] Heber Trejo MD [address] [facility] [address] [place] [address] Social History Tobacco Use Types Packs/Day Years Used Date Smoking Tobacco: Never Smokeless Tobacco: Never Alcohol Use Standard Drinks/Week Comments Yes 0 (1 standard drink = 0.6 oz pur e alcohol) occ glass wine Sex and Gender Information Value Date Recorded Sex Assigned at Male 06/16/2020 9:59 AM CDT 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 Gender Identity Male 06/16/2020 9:59 AM CDT Sexual Orientation Not on file documented as of this encounter Plan of Treatment Not on file documented as of this encounter Visit Diagnoses Not on filedocumented in this encounter Care Teams Precast Concrete Ironworker Relationship Specialty Start Date End Date Lori Wyatt MD [facility] [address] [place] [address] PCP - General Internal Medicine 04/14/15 Bennett Morse MD [facility] [place] [address] Urology 04/14/15 Adelaida Winter MD [facility] [place] [address] Urology 06/28/15 Heber Trejo MD [address] [place] [address] Urology 09/07/15 Kamila Boggs, RN Registered Nurse Urology 09/07/15 09/10/22 Lori Wyatt MD [facility] [address] [place] [address] Referring Physician Internal Medicine 09/07/15 Heber Trejo MD [address] [place] [address] Assigned Surgical Provider 12/17/19 11/15/22 Tammy Maier CNP [address] [place] [address] Assigned Surgical Provider 11/16/22 05/16/23 Polly Wylie PA-C [address] [place] [address] Assigned Surgical Provider 05/17/23 documented as of this encounter
--- OUTSIDE RECORDS SUMMARY | 2023-12-18 11:26 | XMS_ITS | Clinical Summary ---
Author Organization [facility] Address [place], [place] [address] Care Team Providers Care Waistband Setter Lockstitch Name Role Phone Tonya Pradhan MD Primary Care Provider + Allergies Active Allergy Reactions Criticality Noted Date Comments Hydrocodone Rash 05/22/2013 HYDROCODONE - Adverse reactions if uses more than 1-2days Medications Medication Sig Dispensed Refills Start Date End Date Status omeprazole (PRILOSEC) 20 mg capsule Take 20 mg by mouth once daily before a meal. 0 04/27/2013 Active lisinopril (PRINIVIL; ZESTRIL) 10 mg tablet Take 1 tablet by mouth once daily. 0 04/12/2015 Active sucralfate (CARAFATE) 1 gram tablet Take 1 g by mouth 2 times daily. 0 04/12/2015 Active aspirin (ECOTRIN) 81 mg enteric coated tablet Take 1 tablet by mouth once daily with a meal. 0 04/12/2015 Active triamterene-hydrochlor othiazide, 37.5-25 mg, (DYAZIDE) 37.5-25 mg capsule Take 1 Capsule by mouth every morning. Active rosuvastatin (CRESTOR) 5 mg tablet Take 5 mg by mouth once daily. 12/23/2019 Active hydrocodone/acetaminop hen (VICODIN ORAL) Take 1 Tablet by mouth every 4 hours if needed. Active sildenafiL, pulm.hypertension, (REVATIO) 20 mg tablet Take 20 mg by mouth 3 times daily. Active KRILL OIL ORAL Take by mouth. Active Active Problems Problem Noted Date Diagnosed Date Kidney stones 04/12/2015 Elevated PSA 04/12/2015 Social History Tobacco Use Types Packs/Day Years Used Date Smoking Tobacco: Never Smokeless Tobacco: Never Tobacco Cessation:Counseling Given: Yes Alcohol Use Standard Drinks/Week Comments Yes 0 (1 standard drink = 0.6 oz pur e alcohol) maybe up to 10/wk Sex and Gender Information Value Date Recorded Sex Assigned at Not on file Gender Identity Not on file Sexual Orientation Not on file Obstetrics History Last Filed Vital Signs Vital Sign Reading Time Taken Comments Blood Pressure 128/78 09/13/2020 3:30 PM CDT Pulse 96 11/08/2020 11:51 AM CDT Temperature 36.1 ??C (96.9 ??F) 09/13/2020 2:21 PM CD T Respiratory Rate 16 11/08/2020 11:5 1 AM CDT Oxygen Saturation 97% 11/08/2020 11: 51 AM CDT Inhaled Oxygen Concentration - - Weight 100.8 kg (222 lb 3.2 oz) 021 10:55 AM CDT Height 182.9 cm (6') 09/11/2020 3:50 PM CDT Body Mass Index 30.14 09/11/2020 3:50 PM CDT Plan of Treatment Health Maintenance Due Date Last Done Comments Tdap 1957 Depression screening for age 12+ 1958 Hepatitis C screening for age 18-79 1964 Tetanus booster 1966 Zoster (shingles) series for age 50+ (1 of 2) 12/15/18 97 Medicare Wellness for age 65+ 12/16/2011 Pneumococcal series for age 65+ (1 of 1 - PCV) 012 BMI (ht and wt on same day) for age 18+ 04/12/2016 0 04/12/2015 RSV vaccine for adults or pr egnancy (1 - 1-dose 75+ series) 2021 COVID-19 vaccine series (2023- season) 4 Influenza for age 65+ 10/26/2023 Advance Directives * Full Code (Latest Code Status on File) Date Activated Date Inactivated Comments 09/13/2020 10:42 AM 09/13/2020 5:59 PM Should be d iscussed pre operatively with anesthesia or surgeon Question Answer Comments Code Status Discussion: Not Discussed Care Teams Waistband Setter Lockstitch Relationship Specialty Start Date End Date Tonya Pardhan MD [address] [place] [address] PCP - General Family Practice 09/12/20
--- OUTSIDE RECORDS SUMMARY | 2023-12-18 11:26 | XMS_ITS | Encounter Summary ---
Author Organization [place] Address [address] [place] [address] Care Team Providers Care Cassandra Architect Name Role Phone Lori Wyatt MD Primary Care Provider Bennett Morse MD Unavailable [phone] Adelaida Winter MD Unavailable Unav ailable TrinokHeber MD Unavailable [phone] Lori Wyatt MD Unavailable [phone] Polly Wylie PA-C Unavailable Reason for Visit * Reason Onset Date Comments Prior Auth - Medication 12/12/2023 sildenaf il (REVATIO) 20 MG tablet Encounter Details Date Type Department Care Team (Late st Contact Info) Description 12/12/2023 [facility] [address] [place] [address] Polly Wylie PA-C [address] [place] [address] Prior Auth - Medication (sildenafil (REVATIO) 20 MG tablet) Social History Tobacco Use Types Packs/Day Years [...] AM CDT 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 PRIOR AUTHORIZATION DENIED Medication: sildenafil (REVATIO) 20 MG tablet Denial Date: 12/16/2023 Denial Rational: Appeal Information: If you would like to appeal, please supply P/A team with a letter of medical necessity with clinical reason. * Telephone Encounter - Carlos Vallecillo - 12/16/2023 11:37 AM CDT Images from the original note were not included. Central Prior Authorization Team PA Initiation Medication: sildenafil (REVATIO) 20 MG tablet Insurance Company: [employer] - Pharmacy Filling the Rx: [facility] [address] [place] [id number] [facility] Filling Pharmacy Filling Pharmacy Fax: Start Date: 12/16/2023 * Telephone Encounter - Zahira Epstein MA - 12/12/2023 11:46 AM CDT Prior Authorization Retail Medication Request Medication/Dose: sildenafil (REVATIO) 20 MG tablet Insurance Primary: [employer] Medicare Pharmacy Information (if different than what is on RX) Name: CoverMy med Phone: Fax: Clinic Information Preferred routing pool for dept communication: documented in this encounter Plan of Treatment Not on file documented as of this encounter Visit Diagnoses Not on filedocumented in this encounter Additional Health Concerns Assessment Noted Time PHQ-9 Depression Total Score: 1 11/03/19 19 11:41 AM CDT documented as of this encounter Care Teams Cassandra Architect Relationship Specialty Start Date End Date Lori Wyatt MD [facility] [address] [place] [address] PCP - General Internal Medicine 04/14/15 Bennett Morse MD [facility] [address] [place] [address] Urology 04/14/15 Adelaida Winter MD [facility] [address] [place] [address] Urology 06/28/15 Heber Trejo MD [address] [place] [address] [address] [place] [address] Urology 09/07/15 Lori Wyatt MD [facility] [address] [place] [address] Referring Physician Internal Medicine 09/07/15 Polly Wylie PA-C [address] [place] [address] Assigned Surgical Provider 05/17/23 documented as of this encounter
--- OUTSIDE RECORDS SUMMARY | 2023-12-18 11:26 | XMS_ITS | Encounter Summary ---
Author Organization [place] Address [address] [place] [address] Care Team Providers Care Manager Practice Name Role Phone Lori Wyatt MD Primary Care Provider Bennett Morse MD Unavailable [phone] Adelaida Winter MD Unavailable Unav ailable Heber Trejo MD Unavailable [phone] Kamila Boggs RN Unavailable [phone] Lori Wyatt MD Unavailable [phone] Heber Trejo MD Unavailable [phone] Tammy Maier CNP Unavailable [phone] Polly Wylie PA-C Unavailable [phone] Encounter Details Date Type Department Care Team (Late st Contact Info) Description 06/28/2015 [facility] and [facility] C[facility] [address] [facility] [address] [place] [address] Adelaida Winter MD [facility] [place] OF 06/23/2020 Social History Tobacco Use Types Packs/Day Years Used Date Smoking Tobacco: Never Smokeless Tobacco: Never Alcohol Use Standard Drinks/Week Comments Yes 0 (1 standard drink = 0.6 oz pur e alcohol) occ glass wine Sex and Gender Information Value Date Recorded Sex Assigned at Male 06/16/2020 9:59 AM CDT 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 Gender Identity Male 06/16/2020 9:59 AM CDT Sexual Orientation Not on file documented as of this encounter Plan of Treatment Not on file documented as of this encounter Visit Diagnoses Not on filedocumented in this encounter Care Teams Manager Practice Relationship Specialty Start Date End Date Lori Wyatt MD [facility] [address] [place] [address] PCP - General Internal Medicine 04/14/15 Bennett Morse MD [facility] [address] [place] [address] Urology 04/14/15 Adelaida Winter MD [facility] [address] [place] [address] Urology 06/28/15 Heber Trejo MD [address] [place] [address] Urology 09/07/15 Kamila Boggs, RN Registered Nurse Urology 09/07/15 09/10/22 Lori Wyatt MD [facility] [address] [place] [address] Referring Physician Internal Medicine 09/07/15 Heber Trejo MD [address] [place] [address] Assigned Surgical Provider 12/17/19 11/15/22 Tammy Maier CNP [address] [place] [address] Assigned Surgical Provider 11/16/22 05/16/23 Polly Wylie PA-C [address] [place] [address] Assigned Surgical Provider 05/17/23 documented as of this encounter
--- OUTSIDE RECORDS SUMMARY | 2023-12-18 11:26 | XMS_ITS | Encounter Summary ---
Author Organization [place] Address [address] [place] [address]. [place] [address] Care Team Providers Care Captain Waiter/Waitress Name Role Phone Lori Wyatt MD Primary Care Provider Bennett Morse MD Unavailable [phone] Adelaida Winter MD Unavailable Unav ailable Heber Trejo MD Unavailable [phone] Lori Wyatt MD Unavailable Polly Wylie PA-C Unavailable Encounter Details Date Type Department Care Team (Late st Contact Info) Description 07/24/2023 My[facility] Medical Advice [facility] [place] [address] [facility] [address] [place] [address] Heber Trejo MD [address] [facility] [address] [place] [address] Social History Tobacco Use Types [...] AM CDT 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 Gender Identity Male 06/16/2020 9:59 AM CDT Sexual Orientation Not on file documented as of this encounter Plan of Treatment Not on file documented as of this encounter Visit Diagnoses Not on filedocumented in this encounter Additional Health Concerns Assessment Noted Time PHQ-9 Depression Total Score: 1 11/03/19 19 11:41 AM CDT documented as of this encounter Care Teams Captain Waiter/Waitress Relationship Specialty Start Date End Date Lori Wyatt MD [facility] [address] [place] [address] PCP - General Internal Medicine 04/14/15 Bennett Morse MD [facility] [address] [place] [address] Urology 04/14/15 Adelaida Winter MD [facility] [address] [place] [address] Urology 06/28/15 Heber Trejo MD [address] [facility] [address] [place] [address] Urology 09/07/15 Lori Wyatt MD [facility] [address] [place] [address] Referring Physician Internal Medicine 09/07/15 Polly Wylie PA-C [address] [place] [address] Assigned Surgical Provider 05/17/23 documented as of this encounter
--- OUTSIDE RECORDS SUMMARY | 2023-12-18 11:26 | XMS_ITS | Encounter Summary ---
Author Organization [facility] Address [address] [place] [address] Care Team Providers Care Smelting Engineer Name Role Phone Lori Wyatt MD Primary Care Provider Bennett Morse MD Unavailable Adelaida Winter MD Unavailable Unav ailable Heber Trejo MD Unavailable [phone] Kamila Boggs RN Unavailable [phone] Lori Wyatt MD Unavailable [phone] Heber Trejo MD Unavailable Tammy Maier CNP Unavailable Polly Wylie PA-C Unavailable Encounter Details Date Type Department Care Team (Late st Contact Info) Description 01/25/2016 [facility] and [facility] [address] [facility] [address] [place] [address] Heber Trejo MD [address] [place] [address] [facility] [address] [place] [address] Social History Tobacco Use Types Packs/Day Years Used Date Smoking Tobacco: Never Smokeless Tobacco: Never Alcohol Use Standard Drinks/Week Comments Yes 0 (1 standard drink = 0.6 oz pur e alcohol) occ glass wine Sex and Gender Information Value Date Recorded Sex Assigned at Male 06/16/2020 9:59 AM CDT 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 [address] [place] [address] PCP - General Internal Medicine 04/14/15 Bennett Morse MD [facility] [address] Urology 04/14/15 Adelaida Winter MD [facility] [place] [address] Urology 06/28/15 Heber Trejo MD [address] [place] [address] Urology 09/07/15 Kamila Boggs, RN Registered Nurse Urology 09/07/15 09/10/22 Lori Wyatt MD [facility] [address] [place] [address] Referring Physician Internal Medicine 09/07/15 Heber Trejo MD [address] [place] [address] Assigned Surgical Provider 12/17/19 11/15/22 Tammy Maier CNP [address] [place] [address] Assigned Surgical Provider 11/16/22 05/16/23 Polly Wylie PA-C [address] [place] [address] Assigned Surgical Provider 05/17/23 documented as of this encounter
--- OUTSIDE RECORDS SUMMARY | 2023-12-18 11:26 | XMS_ITS | Encounter Summary ---
Author Organization [facility] Address [address] [place] [address] Care Team Providers Care Hand Twister Name Role Phone Lori Wyatt MD Primary Care Provider Bennett Morse MD Unavailable [phone] Adelaida Winter MD Unavailable Unav ailable WarjaskHeber MD Unavailable [phone] Lori Wyatt MD Unavailable Polly Wylie PA-C Unavailable [phone] Reason for Visit * Reason Onset Date Comments Prior Auth - Medication 08/01/2023 sildenaf il (REVATIO) 20 MG tablet- EPA DENIED Encounter Details Date Type Department Care Team (Late st Contact Info) Description 08/01/2023 [facility] [address] [place] [address] Polly Wylie PA-C [address] [place] [address] Prior Auth - Medication (sildenafil (REVATIO) 20 MG tablet- EPA DENIED) Social History Tobacco Use Types Packs/Day Years Used Date Smoking Tobacco: Never Smokeless Tobacco: Never Alcohol Use Standard Drinks/Week Comments Yes 0 (1 standard drink = 0.6 oz pur e alcohol) occ glass wine PHQ-2 Answer Date Recorded PHQ-2 Score 0 11/05/2022 Adolescent Education Answer Date Record ed Getting School Help Needed Not on file 10/12 /2023 Sex and Gender Information Value Date Recorded Sex Assigned at Male 06/16/2020 9:59 AM CDT 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 Patient is not followed by family practice here. Please advise and forward back to specialty team for any follow-up. Martha Varela RN [facility] * Telephone Encounter - Vicki Terry - 08/01/2023 2:17 PM CDT Images from the original note were not included. PRIOR AUTHORIZATION DENIED Medication: SILDENAFIL CITRATE 20 MG PO TABS Insurance Company: [employer] [phone] Denial Date: 08/01/2023 Denial Reason(s): Appeal Information: Patient Notified: No documented in this encounter Plan of Treatment Not on file documented as of this encounter Visit Diagnoses Not on filedocumented in this encounter Additional Health Concerns Assessment Noted Time PHQ-9 Depression Total Score: 1 11/03/19 19 11:41 AM CDT documented as of this encounter Care Teams Hand Twister Relationship Specialty Start Date End Date Lori Wyatt MD [facility] [address] [place] [address] PCP - General Internal Medicine 04/14/15 Bennett Morse MD [facility] [place] [address] Urology 04/14/15 Adelaida Winter MD [facility] [address] [address] Urology 06/28/15 Heber Trejo MD [address] [place] [address] [facility] [address] [place] [address] Urology 09/07/15 Lori Wyatt MD [facility] [address] [place] [address] Referring Physician Internal Medicine 09/07/15 Polly Wylie PA-C [address] [place] [address] Assigned Surgical Provider 05/17/23 documented as of this encounter
--- OUTSIDE RECORDS SUMMARY | 2023-12-18 11:26 | XMS_ITS | Encounter Summary ---
Author Organization [facility] Address [address] [place] [address] Care Team Providers Care Policy Director Name Role Phone Eric Cervantes Primary Care Provider Dayne ramirez Encounter Details Date Type Department Care Team (Late st Contact Info) Description 01/22/2010 2:25 PM [facility] [address] [place] [id number] Mau Dobbs MD [facility] [address] [place] [address] [address] [place] [address] Social History Tobacco Use Types Packs/Day Years Used Date Smoking Tobacco: Never Smokeless Tobacco: Never Alcohol Use Standard Drinks/Week Comments Yes 0 (1 standard drink = 0.6 oz pur e alcohol) occ glass wine Sex and Gender Information Value Date Recorded Sex Assigned at Male 06/16/2020 9:59 AM CDT 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
--- OUTSIDE RECORDS SUMMARY | 2023-12-18 11:26 | XMS_ITS | Encounter Summary ---
Author Organization [facility] Address [address] [place] [address] Care Team Providers Care Account Service Associate Name Role Phone Lori Wyatt MD Primary Care Provider Bennett Morse MD Unavailable Adelaida Winter MD Unavailable Unav ailable Heber Trejo MD Unavailable [phone] Kamila Boggs RN Unavailable [phone] Lori Wyatt MD Unavailable [phone] Heber Trejo MD Unavailable Tammy Maier CNP Unavailable Polly Wylie PA-C Unavailable Encounter Details Date Type Department Care Team (Late st Contact Info) Description 09/24/2016 [facility] and [facility] [address] [facility] [address] [place] [address] Heber Trejo MD [address] [place] [address] [facility] [address] [place] [address] Social History Tobacco Use Types Packs/Day Years Used Date Smoking Tobacco: Never Smokeless Tobacco: Never Alcohol Use Standard Drinks/Week Comments Yes 0 (1 standard drink = 0.6 oz pur e alcohol) occ glass wine Sex and Gender Information Value Date Recorded Sex Assigned at Male 06/16/2020 9:59 AM CDT 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 Gender Identity Male 06/16/2020 9:59 AM CDT Sexual Orientation Not on file documented as of this encounter Plan of Treatment Not on file documented as of this encounter Visit Diagnoses Not on filedocumented in this encounter Care Teams Account Service Associate Relationship Specialty Start Date End Date Lori Wyatt MD [facility] [address] [place] [address] PCP - General Internal Medicine 04/14/15 Bennett Morse MD [facility] [place] [address] Urology 04/14/15 Adelaida Winter MD [facility] [address] [address] Urology 06/28/15 Heber Trejo MD [address] [place] [address] Urology 09/07/15 Kamila Boggs, RN Registered Nurse Urology 09/07/15 09/10/22 Lori Wyatt MD [facility] [address] [place] [address] Referring Physician Internal Medicine 09/07/15 Heber Trejo MD [address] [place] [address] Assigned Surgical Provider 12/17/19 11/15/22 Tammy Maier CNP [address] [place] [address] Assigned Surgical Provider 11/16/22 05/16/23 Polly Wylie PA-C [address] [place] [address] Assigned Surgical Provider 05/17/23 documented as of this encounter
--- OUTSIDE RECORDS SUMMARY | 2023-12-18 11:26 | XMS_ITS | Encounter Summary ---
Author Organization [facility] Address [address] [place] [address] Care Team Providers Care Commercial Insulator Name Role Phone Lori Wyatt MD Primary Care Provider Bennett Morse MD Unavailable Adelaida Winter MD Unavailable Unav ailable Heber Trejo MD Unavailable [phone] Kamila Boggs RN Unavailable [phone] Lori Wyatt MD Unavailable Heber Trejo MD Unavailable Tammy Maier CNP Unavailable [phone] Polly Wylie PA-C Unavailable Encounter Details Date Type Department Care Team (Late st Contact Info) Description 10/16/2017 [facility] Medical Advice [facility] and [facility] [address] [address] Weight, Heber Campbell MD [address] [place] [address] Social History Tobacco Use Types Packs/Day Years Used Date Smoking Tobacco: Never Smokeless Tobacco: Never Alcohol Use Standard Drinks/Week Comments Yes 0 (1 standard drink = 0.6 oz pur e alcohol) occ glass wine Sex and Gender Information Value Date Recorded Sex Assigned at Male 06/16/2020 9:59 AM CDT 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 Gender Identity Male 06/16/2020 9:59 AM CDT Sexual Orientation Not on file documented as of this encounter Plan of Treatment Not on file documented as of this encounter Visit Diagnoses Not on filedocumented in this encounter Care Teams Commercial Insulator Relationship Specialty Start Date End Date Lori Wyatt MD [facility] [address] [place] [address] PCP - General Internal Medicine 04/14/15 Bennett Morse MD [facility] [place] [address] Urology 04/14/15 Adelaida Winter MD [facility] [place] [address] Urology 06/28/15 Heber Trejo MD [address] [place] [address] Urology 09/07/15 Kamila Boggs, RN Registered Nurse Urology 09/07/15 09/10/22 Lori Wyatt MD [facility] [address] [place] [address] Referring Physician Internal Medicine 09/07/15 Heber Trejo MD [address] [place] [address] Assigned Surgical Provider 12/17/19 11/15/22 Tammy Maier CNP [address] [place] [address] Assigned Surgical Provider 11/16/22 05/16/23 Polly Wylie PA-C [address] [place] [address] Assigned Surgical Provider 05/17/23 documented as of this encounter
== END 2023-12-16 08:21 | disposition home or self-care (01) ==
LOC: NFLDREF 12-18 11:23
PROVIDERS: PCP Family Medicine; Referring Provider Family Medicine; Visit Provider Family Medicine
DX: I10 Essential (primary) hypertension (principal); E78.5 Hyperlipidemia, unspecified
CPT/HCPCS: 80053; 80061

== ENCOUNTER 2024-04-13 21:48 | Emergency (ER) | payer MEDICARE, SELFPAY ==
--- OUTSIDE RECORDS SUMMARY | 2024-04-13 21:51 | XMS_ITS | Encounter Summary ---
Author Organization [facility] [place] Address [address] [place] [address] Care Team Providers Care Senior Clinician Name Role Phone Lori Wyatt MD Primary Care Provider [phone] Bennett Morse MD Unavailable [phone] Adelaida Winter MD Unavailable Unav ailable Heber Trejo MD Unavailable [phone] Kamila Boggs RN Unavailable [phone] Lori Wyatt MD Unavailable Heber Trejo MD Unavailable Tammy Maier CNP Unavailable [phone] Polly Wylie PA-C Unavailable Encounter Details Date Type Department Care Team (Late st Contact Info) Description 08/22/2015 [facility] Medical Advice [facility] Urology and [facility] 9[address] [facility] [address] [place] [address] Heber Trejo MD [address] [place] [address] [facility] [address] [place] [address] Social History Tobacco Use Types Packs/Day Years Used Date Smoking Tobacco: Never Smokeless Tobacco: Never Alcohol Use Standard Drinks/Week Comments Yes 0 (1 standard drink = 0.6 oz pur e alcohol) occ glass wine Sex and Gender Information Value Date Recorded Sex Assigned at Male 06/16/2020 9:59 AM CDT 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 Gender Identity Male 06/16/2020 9:59 AM CDT Sexual Orientation Not on file documented as of this encounter Plan of Treatment Upcoming Encounters Date Type Department Care Team (Late st Contact Info) Description 05/24/2024 1:30 PM CDT Virtual Visit [facility] [address] [place] [address] Heber Trejo MD [address] [place] [address] [address] [place] [address] documented as of this encounter Visit Diagnoses Not on filedocumented in this encounter Care Teams Senior Clinician Relationship Specialty Start Date End Date Lori Wyatt MD [facility] [address] [place] [address] PCP - General Internal Medicine 04/14/15 Bennett Morse MD [facility] [address] [address] Urology 04/14/15 Adelaida Winter MD [facility] [address] [address] Urology 06/28/15 Heber Trejo MD [address] [place] [address] [address] [place] [address] Urology 09/07/15 Kamila Boggs, RN Registered Nurse Urology 09/07/15 09/10/22 Lori Wyatt MD [facility] [address] [place] [address] Referring Physician Internal Medicine 09/07/15 Heber Trejo MD [address] [facility] [address] [place] [address] Assigned Surgical Provider 12/17/19 11/15/22 Tammy Maier CNP [address] [place] [address] Assigned Surgical Provider 11/16/22 05/16/23 Polly Wylie PA-C [address] [place] [address] Assigned Surgical Provider 05/17/23 documented as of this encounter
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
--- OUTSIDE RECORDS SUMMARY | 2024-04-13 21:51 | XMS_ITS | Encounter Summary ---
Author Organization [facility] Address [address] [place] [address]. [place] [address] Care Team Providers Care Manager Progressive Care Name Role Phone Lori Wyatt MD Primary Care Provider Bennett Morse MD Unavailable Adelaida Winter MD Unavailable Unav ailable Heber Trejo MD Unavailable [phone] Kamila Boggs RN Unavailable [phone] Lori Wyatt MD Unavailable Heber Trejo MD Unavailable Tammy Maier CNP Unavailable Polly Wylie PA-C Unavailable [phone] Encounter Details Date Type Department Care Team (Late st Contact Info) Description 04/09/2022 [facility] [place] [id number] [facility] [address] [place] [address] Heber Trejo MD [address] [facility] [address] [place] [address] Social History Tobacco Use Types [...] AM CDT 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 No / Unsure 04/12/2022 11:07 AM SOCIAL CONTACT WORKER documented as of this encounter Plan of Treatment Upcoming Encounters Date Type Department Care Team (Late st Contact Info) Description 05/24/2024 1:30 PM CDT Virtual Visit [facility] [address] [place] [phone] Heber Trejo MD [address] [place] [id number] documented as of this encounter Visit Diagnoses Not on filedocumented in this encounter Additional Health Concerns Assessment Noted Time PHQ-9 Depression Total Score: 1 11/03/19 19 11:41 AM CDT documented as of this encounter Care Teams Manager Progressive Care Relationship Specialty Start Date End Date Lori Wyatt MD [facility] [address] [address] PCP - General Internal Medicine 04/14/15 Bennett Morse MD [facility] [address] [id number] Urology 04/14/15 Adelaida Winter MD [facility] [address] [address] Urology 06/28/15 Heber Trejo MD [address] [facility] [address] [place], [place] [phone] Urology 09/07/15 Kamila Boggs, RN Registered Nurse Urology 09/07/15 09/10/22 Lori Wyatt MD [address] [address] Referring Physician Internal Medicine 09/07/15 Heber Trejo MD [address] [place] [address] [address] [place] [address] Assigned Surgical Provider 12/17/19 11/15/22 Tammy Maier CNP [address] [place] [address] Assigned Surgical Provider 11/16/22 05/16/23 Polly Wylie PA-C [address] [place] [address] Assigned Surgical Provider 05/17/23 documented as of this encounter
--- OUTSIDE RECORDS SUMMARY | 2024-04-13 21:51 | XMS_ITS | Continuity of Care Document ---
Author Name [facility] Organization [facility] Care Team Providers Care Cant Gang Sawyer Name Role Phone [facility] Unavailable Unavailable Problems Combined list of problems from Department [facility] and [facility] facilities. It does not include entries that were removed or entered in error. Problem Status Onset Date Problem Type Date of Resolution Comments Source GERD - Gastro-Esophageal Reflux Disease ([facility] [id number]) Active Condition [facility] HTN - Hypertension ([facility] [id number]) Active Condition [facility] Hyperlipidemia ([facility] [id number]) Active Condition [facility] Prostate carcinoma Active Condition 2023 Entered By: SAUL NGUYEN Comment: s/p prostate removal. 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 [facility] Right knee pain Active Condition [facility] Diagnosis: ICD-10-CM M17.31 Unilateral post-traumatic osteoarthritis, right knee Active Diagnosis [facility] Diagnosis: ICD-10-CM M25.561 Pain in right knee Active Diagnosis [facility] Medications Combined list of outpatient medications from [facility] and [facility] facilities.Medications provided include 1) outpatient medications from the last 15 months, and 2) patient-reported medications. Medication Details Route Status Patient Instructions Prescription Expires Prescription Number Last Dispense Date Ordering Provider Order Date Order Qty Source DICLOFENAC NA 1% GEL,TOP APPLY 4 GRAMS TOPICALL Y FOUR TIMES A DAY NEEDED TO KNEES FOR ARTHRITI S PAIN TOPICA L ACTIVE 08/12/2024 [id number] 4 Brenna UMANA NDREW L 2023 300 [facility] HYDROCHLORO THIAZIDE 50MG/TRIAMT ERENE 75MG TAB TAKE ONE TABLET BY MOUTH ORAL ACTIVE NGUYEN,ER ICA C 2023 [facility] LISINOPRIL 10MG TAB TAKE ONE TABLET BY MOUTH ORAL ACTIVE NGUYEN,ER ICA C 2023 [facility] OMEPRAZOLE 20MG CAP,EC TAKE 1 CAPSULE BY MOUTH EVERY DAY ORAL ACTIVE NGUYEN,ER ICA C 2023 [facility] ROSUVASTATI N CA 5MG TAB TAKE ONE TABLET BY MOUTH ORAL ACTIVE NGUYEN,ER ICA C 2023 [facility] SILDENAFIL CITRATE 100MG TAB TAKE ONE TABLET BY MOUTH ONCE NEEDED FOR ERECTILE DYSFUNCT ION - TRIAL WITH JUST 1/2 TABLET (50MG) AND MONITOR FOR EFFECTIV ENESS - ORAL ACTIVE 07/28/2024 [id number] NGUYEN,ER ICA C 2023 18 [facility] SILDENAFIL TAB TAKE 20MG BY MOUTH THREE TIMES A DAY ORAL ACTIVE NGUYEN,ER ICA C 2023 [facility] SUCRALFATE 1GM TAB TAKE ONE TABLET BY MOUTH TWICE A DAY ORAL ACTIVE NGUYEN,ER ICA C 2023 [facility] Immunizations Combined list of available immunizations from the Department of Defense and Veterans Affairs facilities. Immunization Series Date Given Administered By Site Reaction Lot Number CVX Code Drug Shotgun Shell Loading Machine Operator Status Comments Source COVID-19 (PFIZER), MRNA, LNP-S, PF, NITA-SUCROSE, 30 MCG/0.3 ML (AGES 12+ YEARS) 2023 YOLIS VILLAFUERTE LEFT DELTO ID [id number] 309 complet ed [facility] TDAP 2023 YOLIS VILLAFUERTE RIGHT DELTO ID [id number] 115 complet ed [facility] RSV, RECOMBINANT, PROTEIN SUBUNIT RSVPREF, ADJUVANT RECONSTITUTED , 0.5 ML, PF 2022 303 complet ed [facility] COVID-19 (PFIZER), MRNA, LNP-S, PF, NITA-SUCROSE, 30 MCG/0.3 ML (AGES 12+ YEARS) 2022 309 complet ed [facility] INFLUENZA VACCINE, QUADRIVALENT, ADJUVANTED 2022 205 complet ed [facility] COVID-19 (MODERNA), MRNA, LNP-S, BIVALENT, PF, 50 MCG/0.5 ML OR 25MCG/0.25 ML DOSE 2021 229 complet ed [facility] INFLUENZA VACCINE, QUADRIVALENT, ADJUVANTED 2021 205 complet ed [facility] COVID-19 (PFIZER), MRNA, LNP-S, PF, 30 MCG/0.3 ML DOSE 2021 208 complet [facility] INFLUENZA VACCINE, QUADRIVALENT, ADJUVANTED 2020 205 complet ed [facility] COVID-19 (PFIZER), MRNA, LNP-S, PF, 30 MCG/0.3 ML DOSE 2020 208 complet ed [facility] COVID-19 (PFIZER), MRNA, LNP-S, PF, 30 MCG/0.3 ML DOSE 2 2020 208 complet ed PFR; [id number]; 1 [facility] COVID-19 (Urban [employer]), MRNA, LNP-S, PF, 30 MCG/0.3 ML DOSE 1 2020 208 complet ed PFR; [id number]; 1 [facility] ZOSTER RECOMBINANT 2019 187 complet [facility] INFLUENZA VACCINE, QUADRIVALENT, ADJUVANTED 2019 205 complet ed [facility] ZOSTER RECOMBINANT 2019 187 complet [facility] INFLUENZA, TRIVALENT, ADJUVANTED 2018 168 complet [facility] INFLUENZA, INJECTABLE, QUADRIVALENT, PRESERVATIVE FREE 2018 150 complet [facility] INFLUENZA, HIGH DOSE SEASONAL 2017 135 complet [facility] INFLUENZA, HIGH DOSE SEASONAL 2016 135 complet [facility] INFLUENZA, INJECTABLE, QUADRIVALENT, PRESERVATIVE FREE 2015 150 complet [facility] INFLUENZA, HIGH DOSE SEASONAL 2014 135 complet [facility] PNEUMOCOCCAL CONJUGATE PCV 13 2014 133 complet [facility] INFLUENZA, HIGH DOSE SEASONAL 2013 135 complet [facility] TDAP 2013 115 complet [facility] TD (ADULT), 5 LF TETANUS TOXOID, PRESERVATIVE FREE, ADSORBED 2013 113 complet [facility] INFLUENZA, SEASONAL, INJECTABLE 2012 141 complet [facility] PNEUMOCOCCAL POLYSACCHARID E PPV23 2011 33 complet ed [facility] LITHUANIAN ENCEPHALITIS IM 2010 134 complet ed [facility] LITHUANIAN ENCEPHALITIS IM 2010 134 complet ed [facility] TYPHOID, VICPS 2010 101 complet ed [facility] INFLUENZA, UNSPECIFIED FORMULATION 2010 88 complet ed [facility] INFLUENZA, SEASONAL, INJECTABLE, PRESERVATIVE FREE 2009 140 complet ed [facility] INFLUENZA, INJECTABLE, QUADRIVALENT, PRESERVATIVE FREE 2008 150 complet ed [facility] NOVEL INFLUENZA-H1N 1-09, ALL FORMULATIONS 2008 128 complet ed [facility] HEP B, ADULT 2003 43 complet ed [facility] HEP A, ADULT 2002 52 complet ed [facility] HEP B, ADULT 2002 43 complet ed [facility] HEP B, ADULT 2002 43 complet ed [facility] HEP A, ADULT 2001 52 complet ed [facility] Vital Signs Combined list of inpatient and outpatient Vital Signs from Department of Defense and Veterans Affairs, ranging from 12 months to all on record, depending upon the facility. Vital Sign Value Date Comments Source SYSTOLIC BLOOD PRESSURE 142 07/24/2023 11:13:55 [facility] DIASTOLIC BLOOD PRESSURE 85 07/24/2023 11:13:55 [facility] PULSE OXIMETRY 95 07/24/2023 11:13:55 [facility] WEIGHT 228.8 07/24/2023 11:13:55 [facility] BMI 31 kg/m2 07/24/2023 11:13:55 [facility] PAIN 2 07/24/2023 11:13:55 [facility] HEIGHT 72.5 07/24/2023 11:13:55 [facility] TEMPERATURE 97.1 07/24/2023 11:13:55 [facility] PULSE 66 07/24/2023 11:13:55 [facility] RESPIRATION 16 07/24/2023 11:13:55 [facility] Encounters Combined list of: 1) Encounters from Department of Veterans Affairs facilities going backup to the last 18 months, not all [place] inpatient encounters are included; 2) Encounters from the Department of [facility] facilities going backup to 280 months. Location Location Details Encounter Type Encounter Number Reason For Visit Attending Provider ADM Date DC Date Status Disposition Source [facility] Outpatient Encounter [id number] 11/12 [facility] Outpatient Encounter [id number] 12/10 [facility] OFFICE O/P [place] 60 MIN [id number] Diagnos is: ICD-10- CM M25.561 Pain in right knee MISTY NGUYEN C 07/23 [facility] Outpatient Encounter [id number] 08/03 [facility] OFF/OP CNSLTJ NEW/EST MOD 40 [id number] Diagnos is: ICD-10- CM M17.31 Unilate ral post-tr aumatic osteoar thritis , right knee ZUMBACH,AN LUIZA L 08/11 [facility] Outpatient Encounter [id number] 08/11 [facility] Social History Combined list of available smoking, tobacco, and other social history from Department of Defense and Veterans Affairs facilities. Social History Type Response Date Comment Sourc e Tobacco smoking status [facility] NEVER USED 07/24/2023 [facility]
--- OUTSIDE RECORDS SUMMARY | 2024-04-13 21:51 | XMS_ITS | Encounter Summary ---
Author Organization [facility] Address [address] [place] [address]. [place] [address] Care Team Providers Care Warehouse Logistics Manager Name Role Phone Mikhail Cervantes Primary Care Provider Alec Lo MD Unavailable Encounter Details Date Type Department Care Team (Late st Contact Info) Description 06/11/2010 12:55 PM CDT [facility] in [address] [id number] Jeremías Prado MD [address] [place] [address] Social History Tobacco Use Types Packs/Day Years Used Date Smoking Tobacco: Never Smokeless Tobacco: Never Alcohol Use Standard Drinks/Week Comments Yes 0 (1 standard drink = 0.6 oz pur e alcohol) occ glass wine Sex and Gender Information Value Date Recorded Sex Assigned at Male 06/16/2020 9:59 AM CDT Legal 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 Gender Identity Male 06/16/2020 9:59 AM CDT Sexual Orientation Not on file documented as of this encounter Plan of Treatment Upcoming Encounters Date Type Department Care Team (Late st Contact Info) Description 05/24/2024 1:30 PM CDT Virtual Visit [facility] [address] 4[address] [place] [address] Heber Trejo MD [address] [place] [address] documented as of this encounter Procedures Procedure Name Priority Date/Time Associated Diagnosis Comments SURGICAL PATHOLOGY EXAM Routine 06/11/2010 1:00 PM CDT documented in this encounter Results * Surgical pathology exam (06/11/2010 1:00 PM CDT) Copath Report Patient Name: BOB GALVEZ MR#: [id number] Specimen #: [id number] Collected: 06/11/2010 Received: 06/11/2010 Reported: 06/13/2010 16:02 Ordering Phy(s): JEREMÍAS PRADO SPECIMEN(S): Colon, stomach-body, antrum, cardia polyp FINAL DIAGNOSIS: Stomach, body, antrum, cardia polyp, biopsies: - Polypoid foveolar hyperplasia. - No evidence of Helicobacter pylori. Electronically signed out by: Raghavendra Kebede M.D. CLINICAL HISTORY: Specimen, stomach, body, antrum, cardia, polyp. 64-year-old male with reflux symptoms, incidental polyp in cardia. GROSS: The container is labeled with the patient's name, medical record number, date of , and is designated as stomach, body, antrum, cardia polyp. Four tissues, less than 1 millimeter - 2 millimeters. (Raghavendra Kebede MD/aby 06/12/2010) MICROSCOPIC: There are five portions of gastric mucosa. Four show oxyntic mucosa, and at least one of those also shows foveolar hyperplasia. The fifth portion of tissue is superficial and shows gastric foveolar hyperplasia. This appears to represent focal or polypoid foveolar hyperplasia which can be seen adjacent to ulcers, or as part of chemical gastropathy. The differential includes hyperplastic polyp. Malignant features are not identified and there is no evidence of dysplasia. There is no significant inflammation, and Helicobacter-lik e organisms are not seen on H&E stained sections. Raghavendra Kebede MD/aby 06/13/2010 TESTING LAB LOCATION: [address] [place] [address] COLLECTION SITE: Client: [facility] Location: END (W) COPATH 06/11/2010 1:00 PM CDT 06/11/2010 4:22 PM CDT Jeremías DAVIS - KATHLEEN osorio COPATH documented in this encounter Visit Diagnoses Not on filedocumented in this encounter Care Teams Warehouse Logistics Manager Relationship Specialty Start Date End Date Mikhail Cervantes PCP - General 08/29/04 04/13/15 Alec Johnson MD [address] [place] [address] PCP - Surgery Surgery 06/01/10 01/24/14 documented as of this encounter
--- OUTSIDE RECORDS SUMMARY | 2024-04-13 21:51 | XMS_ITS | Encounter Summary ---
Author Organization [facility] Address [address] [place] [address] Care Team Providers Care Fondant Machine Operator Name Role Phone Lori Wyatt MD Primary Care Provider [phone] Bennett Morse MD Unavailable Adelaida Winter MD Unavailable Unav ailable Heber Trejo MD Unavailable [phone] Kamila Boggs RN Unavailable [phone] Lori Wyatt MD Unavailable [phone] Heber Trejo MD Unavailable Tammy Maier CNP Unavailable Polly Wylie PA-C Unavailable [phone] Encounter Details Date Type Department Care Team (Late st Contact Info) Description 02/25/2017 [facility] Medical Advice [facility] Urology and [facility] [address] [facility] [address] 4th [place] [address] Heber Trejo MD [address] [facility] [address] [place] [address] Social History Tobacco Use Types Packs/Day Years Used Date Smoking Tobacco: Never Smokeless Tobacco: Never Alcohol Use Standard Drinks/Week Comments Yes 0 (1 standard drink = 0.6 oz pur e alcohol) occ glass wine Sex and Gender Information Value Date Recorded Sex Assigned at Male 06/16/2020 9:59 AM CDT 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 Gender Identity Male 06/16/2020 9:59 AM CDT Sexual Orientation Not on file documented as of this encounter Plan of Treatment Upcoming Encounters Date Type Department Care Team (Late st Contact Info) Description 05/24/2024 1:30 PM CDT Virtual Visit [facility] Clinic [address] 4th [place] [address] Heber Trejo MD [address] [place] [address] [address] [place] [address] documented as of this encounter Visit Diagnoses Not on filedocumented in this encounter Care Teams Fondant Machine Operator Relationship Specialty Start Date End Date Lori Wyatt MD [facility] [address] [place] [address] PCP - General Internal Medicine 04/14/15 Bennett Morse MD [facility] [address] [address] Urology 04/14/15 Adelaida Winter MD [facility] [address] [address] Urology 06/28/15 Heber Trejo MD [address] [place] [address] [address] [place] [address] Urology 09/07/15 Kamila Boggs, RN Registered Nurse Urology 09/07/15 09/10/22 Lori Wyatt MD [facility] [address] [place] [address] Referring Physician Internal Medicine 09/07/15 Heber Trejo MD [address] [facility] [address] [place] [address] Assigned Surgical Provider 12/17/19 11/15/22 Tammy Maier CNP [address] [place] [address] Assigned Surgical Provider 11/16/22 05/16/23 Polly Wylie PA-C [address] [place] [address] Assigned Surgical Provider 05/17/23 documented as of this encounter
--- OUTSIDE RECORDS SUMMARY | 2024-04-13 21:51 | XMS_ITS | Encounter Summary ---
Author Organization [facility] Address [address] [place] [address] Care Team Providers Care Bellhop Service Captain Name Role Phone Lori Wyatt MD Primary Care Provider Bennett Morse MD Unavailable dAelaida Winter MD Unavailable Unav ailable Heber Trejo MD Unavailable [phone] Kamila Boggs RN Unavailable [phone] Lori Wyatt MD Unavailable [phone] Heber Trejo MD Unavailable Tammy Maier CNP Unavailable Polly Wylie PA-C Unavailable Encounter Details Date Type Department Care Team (Late st Contact Info) Description 10/17/2016 [facility] Medical Advice [facility] and [place] for Prostate and Urologic Cancers [address] [address] [place] [address] Heber Trejo MD [address] [facility] [address] [place] [address] Social History Tobacco Use Types Packs/Day Years Used Date Smoking Tobacco: Never Smokeless Tobacco: Never Alcohol Use Standard Drinks/Week Comments Yes 0 (1 standard drink = 0.6 oz pur e alcohol) occ glass wine Sex and Gender Information Value Date Recorded Sex Assigned at Male 06/16/2020 9:59 AM CDT 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 Gender Identity Male 06/16/2020 9:59 AM CDT Sexual Orientation Not on file documented as of this encounter Plan of Treatment Upcoming Encounters Date Type Department Care Team (Late st Contact Info) Description 05/24/2024 1:30 PM CDT Virtual Visit [facility] [address] 4th [place] [address] Heber Trejo MD [address] [place] [address] [address] [place] [address] documented as of this encounter Visit Diagnoses Not on filedocumented in this encounter Care Teams Bellhop Service Captain Relationship Specialty Start Date End Date Lori Wyatt MD [facility] [address] [place] [address] PCP - General Internal Medicine 04/14/15 Bennett Morse MD [facility] [address] [address] Urology 04/14/15 Adelaida Winter MD [facility] [address] [address] Urology 06/28/15 Heber Trejo MD [address] [place] [address] [address] [place] [address] Urology 09/07/15 Kamila Boggs, RN Registered Nurse Urology 09/07/15 09/10/22 Lori Wyatt MD [facility] [address] [place] [address] Referring Physician Internal Medicine 09/07/15 Heber Trejo MD [address] [facility] [address] [place] [address] Assigned Surgical Provider 12/17/19 11/15/22 Tammy Maier CNP [address] [place] [address] Assigned Surgical Provider 11/16/22 05/16/23 Polly Wylie PA-C [address] [place] [address] Assigned Surgical Provider 05/17/23 documented as of this encounter
--- OUTSIDE RECORDS SUMMARY | 2024-04-13 21:51 | XMS_ITS | Encounter Summary ---
Author Organization [facility] Address [address] [place] [address] Care Team Providers Care Television Actor Name Role Phone Lori Wyatt MD Primary Care Provider Bennett Morse MD Unavailable Adelaida Winter MD Unavailable Unav ailable Heber Trejo MD Unavailable [phone] Kamila Boggs RN Unavailable [phone] Lori Wyatt MD Unavailable Heber Trejo MD Unavailable Tammy Maier CNP Unavailable Polly Wylie PA-C Unavailable Encounter Details Date Type Department Care Team (Late st Contact Info) Description 01/25/2017 [facility] Urology and [facility] [address] [facility] [address] 4th [place] [address] Heber Trejo MD [address] [facility] [address] [place] [address] Social History Tobacco Use Types Packs/Day Years Used Date Smoking Tobacco: Never Smokeless Tobacco: Never Alcohol Use Standard Drinks/Week Comments Yes 0 (1 standard drink = 0.6 oz pur e alcohol) occ glass wine Sex and Gender Information Value Date Recorded Sex Assigned at Male 06/16/2020 9:59 AM CDT Legal Sex Male 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 Gender Identity Male 06/16/2020 9:59 AM CDT Sexual Orientation Not on file documented as of this encounter Plan of Treatment Upcoming Encounters Date Type Department Care Team (Late st Contact Info) Description 05/24/2024 1:30 PM CDT Virtual Visit [facility] U[facility] Clinic [address] 4th [place] [address] Heber Trejo MD [address] [place] [address] [address] [place] [address] documented as of this encounter Visit Diagnoses Not on filedocumented in this encounter Care Teams Television Actor Relationship Specialty Start Date End Date Lori Wyatt MD [facility] [address] [place] [address] PCP - General Internal Medicine 04/14/15 Bennett Morse MD [facility] [address] [address] Urology 04/14/15 Adelaida Winter MD [facility] [address] [address] Urology 06/28/15 Heber Trejo MD [address] [place] [address] [address] [place] [address] Urology 09/07/15 Kamila Boggs, RN Registered Nurse Urology 09/07/15 09/10/22 Lori Wyatt MD [facility] [address] [place] [address] Referring Physician Internal Medicine 09/07/15 Heber Trejo MD [address] [facility] [address] [place] [address] Assigned Surgical Provider 12/17/19 11/15/22 Tammy Maier CNP [address] [place] [address] Assigned Surgical Provider 11/16/22 05/16/23 Polly Wylie PA-C [address] [place] [address] Assigned Surgical Provider 05/17/23 documented as of this encounter
--- OUTSIDE RECORDS SUMMARY | 2024-04-13 21:51 | XMS_ITS | Clinical Summary ---
Author Organization [facility] Address [address] [place] [address] Care Team Providers Care Professor Of Theatre Name Role Phone Unavailable Primary Care Provider Unavailabl e Source Comments Patient records contain information from all sites at [facility]. For routine questions regarding patient records, call [phone] during business hours, M-F 8:00 AM - 5:00 PM Central Time. Record requests for emergency care only can be directed to [phone] at any time.[facility] Allergies Active Allergy Reactions Criticality Noted Date [...] rosuvastatin (CRESTOR) 5 mg tablet 12/23/2019 Active Active Problems Problem Noted Date Diagnosed Date Hypertension Essential Benign 05/22/2013 Overview (07/16/2016): Benign Essential Hypertension Essential hypertension, benign Chronic Kidney Disease Stage 3 Glomerular Filtration Rate 30 To 59 05/22/2013 Overview (07/16/2016): Chronic Kidney Disease, Stage III (Moderate) Chronic kidney disease, stage III (moderate) CR 1.27 01/22/2010 GFRESTIMATED 57 01/22/2010 Encounters Date Type Department Care Team Description 01/26/2024 11:15 AM GREEN BUILDING MATERIALS DESIGNER Office Visit Department of Dermatology in [address] [address] Alejandro Shanks M.D. Keratosis Actinic (Primary Dx); Nevi Multiple; Keratosis Seborrheic Discharge Disposition: Home or Self Care from Last 3 Months Family History Medical History Relation Name Comments [...] friends or relatives? Once a week 07/02/2022 Attends [employer] Services Not on file 07/02 Do you belong to any clubs o r organizations such as anabaptist groups, unions, fraternal or athletic groups, or [...] care, and heating? Not very hard 07/02/2022 [facility] - Occupational Stress Questionnaire Answer Date Recorded [...] place to sleep or slept in a residential (including now)? No 07/02/2022 Nutrition Answer Date [...] Master's degree (e.g., MA, MS, Keysha, MEd, ELEMENT SETTER, CHERI) 02/24/2021 Sex and Gender Information Value Date Recorded Sex Assigned at Male 02/24/2021 10:06 AM GREEN BUILDING MATERIALS DESIGNER Legal Sex Male 9:54 AM GREEN BUILDING MATERIALS DESIGNER Gender Identity Male 02/24/2021 10:06 AM GREEN BUILDING MATERIALS DESIGNER Sexual Orientation Straight 02/24/2021 10 :06 AM GREEN BUILDING MATERIALS DESIGNER Last Filed Vital Signs Vital Sign Reading Time Taken Comments Blood Pressure 128/90 05/03/2021 9:00 AM GREEN BUILDING MATERIALS DESIGNER Pulse 59 05/03/2021 9:00 AM GREEN BUILDING MATERIALS DESIGNER Temperature - - Respiratory Rate - - Oxygen Saturation - - Inhaled Oxygen Concentration - - Weight - - Height - - Body Mass Index - - Plan of Treatment Upcoming Encounters Date Type Department Care Team (Late st Contact Info) Description 07/26/2024 1:30 PM CDT Office Visit Department of Dermatology in [address] [address] Alejandro Shanks M.D. [address] [place] [address] Discharge Disposition: Home or Self Care Health Maintenance Due Date Last Done Comments Hepatitis C Screening 1945 Office Visit for Blood Pressure Check / Re-check 1945 Creatinine Level (Kidney Function Test) 08/09/2021 08/09/2020 Potassium Level 08/09/2021 08/09/2020 Sodium Level 08/09/2021 08/09/2020 Depression Screening (Annual PHQ-2) 02/25/2024 Fall Risk Screen (Annual) 02/25/2024 COVID-19 Vaccine ( season) 2024 12/01/2023, 07/24/2023, 11/12/2022, Additional history exists DTaP,Tdap,and Td Vaccines (3 - Td or Tdap) 07/23/2033 07/24/2023, 11/25/2013, 08/15/2013 Colonoscopy Discontinued 08/29/2004 Colorectal Cancer Screening Discontinued Pneumococcal vaccine (50+ years) Completed 11/21/2014, 01/10/2012 Zoster Vaccines Completed 01/11/2020, 10/06/2019 RSV vaccine - (32-36 weeks) or 60+ years Completed 12/10/2022 Influenza Vaccine Completed 12/01/2023, , 11/05/2021, Additional history exists CT Colonography Discontinued Cologuard Discontinued FIT Discontinued IPV Vaccines Aged Out No longer eligi ble based on patient's age to complete this topic Insurance [facility]
--- OUTSIDE RECORDS SUMMARY | 2024-04-13 21:51 | XMS_ITS | Encounter Summary ---
Author Organization [place] Address [address] [place] [address] Care Team Providers Care Bike Shop Manager Name Role Phone Lori Wyatt MD Primary Care Provider [phone] Bennett Morse MD Unavailable [phone] Adelaida Winter MD Unavailable Unav ailable Heber Trejo MD Unavailable [phone] Kamila Boggs RN Unavailable [phone] Lori Wyatt MD Unavailable Heber Trejo MD Unavailable Tammy Maier CNP Unavailable [phone] Polly Wylie PA-C Unavailable Encounter Details Date Type Department Care Team (Late st Contact Info) Description 10/16/2017 [facility] [facility] Urology and [facility] Cancers [address] [address] Weight, Heber Campbell MD [address] [place] [address] Social History Tobacco Use Types Packs/Day Years Used Date Smoking Tobacco: Never Smokeless Tobacco: Never Alcohol Use Standard Drinks/Week Comments Yes 0 (1 standard drink = 0.6 oz pur e alcohol) occ glass wine Sex and Gender Information Value Date Recorded Sex Assigned at Male 06/16/2020 9:59 AM CDT 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 [address] [place] [address] PCP - General Internal Medicine 04/14/15 Bennett Morse MD [facility] [address] [address] Urology 04/14/15 Adelaida Winter MD [facility] [address] [address] Urology 06/28/15 Heber Trejo MD [address] [place] [address] [address] [place] [address] Urology 09/07/15 Kamila Boggs, RN Registered Nurse Urology 09/07/15 09/10/22 Lori Wyatt MD [facility] [address] [place] [address] Referring Physician Internal Medicine 09/07/15 Heber Trejo MD [address] [facility] [address] [place], [place] [address] Assigned Surgical Provider 12/17/19 11/15/22 Tammy Maier CNP [address] [place], [place] [address] Assigned Surgical Provider 11/16/22 05/16/23 Polly Wylie PA-C [address] [place] [address] Assigned Surgical Provider 05/17/23 documented as of this encounter
--- OUTSIDE RECORDS SUMMARY | 2024-04-13 21:51 | XMS_ITS | Encounter Summary ---
Author Organization [place] Address [address] [place] [address] Care Team Providers Care Well Tester Name Role Phone Lori Wyatt MD Primary Care Provider Bennett Morse MD Unavailable Adelaida Winter MD Unavailable Unav ailable Heber Trejo MD Unavailable [phone] Kamila Boggs RN Unavailable [phone] Lori Wyatt MD Unavailable Heber Trejo MD Unavailable Tammy Maier CNP Unavailable [phone] Polly Wylie PA-C Unavailable [phone] Encounter Details Date Type Department Care Team (Late st Contact Info) Description 09/24/2016 [facility]rology and [facility] C[facility] [address] 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 Gender Identity Male 06/16/2020 9:59 AM CDT Sexual Orientation Not on file documented as of this encounter Plan of Treatment Upcoming Encounters Date Type Department Care Team (Late st Contact Info) Description 05/24/2024 1:30 PM CDT Virtual Visit [facility] [address] 4th [place] [address] Heber Trejo MD [address] [place] [address] [address] [place] [address] documented as of this encounter Visit Diagnoses Not on filedocumented in this encounter Care Teams Well Tester Relationship Specialty Start Date End Date Lori Wyatt MD [facility] [address] [place] [address] PCP - General Internal Medicine 04/14/15 Bennett Morse MD [facility] [address] [address] Urology 04/14/15 Adelaida Winter MD [facility] [address] [address] Urology 06/28/15 Heber Trejo MD [address] [place] [address] [address] [place] [address] Urology 09/07/15 Kamila Boggs, RN Registered Nurse Urology 09/07/15 09/10/22 Lori Wyatt MD [facility] [address] [place] [address] Referring Physician Internal Medicine 09/07/15 Heber Trejo MD 420 [facility] [address] [place] [address] Assigned Surgical Provider 12/17/19 11/15/22 Tammy Maier CNP [address] [place] [address] Assigned Surgical Provider 11/16/22 05/16/23 Polly Wylie PA-C [address] [place] [address] Assigned Surgical Provider 05/17/23 documented as of this encounter
--- OUTSIDE RECORDS SUMMARY | 2024-04-13 21:51 | XMS_ITS | Encounter Summary ---
Author Organization [facility] Address [address] [place] [address] Care Team Providers Care Snow Removal/Plowing Name Role Phone Lori Wyatt MD Primary Care Provider [phone] Bennett Morse MD Unavailable Adelaida Winter MD Unavailable Unav ailable Heber Trejo MD Unavailable [phone] Kamila Boggs RN Unavailable [phone] Lori Wyatt MD Unavailable Heber Trejo MD Unavailable Tammy Maier CNP Unavailable Polly Wylie PA-C Unavailable Encounter Details Date Type Department Care Team (Late st Contact Info) Description 09/28/2018 [facility]rology and [facility] Urologic C[facility] [address] [facility] [address] 4th [place] [address] Heber Trejo MD [address] [place] [address] [facility] [address] [place] [address] Social History Tobacco Use Types Packs/Day Years Used Date Smoking Tobacco: Never Smokeless Tobacco: Never Alcohol Use Standard Drinks/Week Comments Yes 0 (1 standard drink = 0.6 oz pur e alcohol) occ glass wine Sex and Gender Information Value Date Recorded Sex Assigned at Male 06/16/2020 9:59 AM CDT 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 Gender Identity Male 06/16/2020 9:59 AM CDT Sexual Orientation Not on file documented as of this encounter Plan of Treatment Upcoming Encounters Date Type Department Care Team (Late st Contact Info) Description 05/24/2024 1:30 PM CDT Virtual Visit [facility] [address] 4th [place] [address] Heber Trejo MD [address] [place] [address] [address] [place] [address] documented as of this encounter Visit Diagnoses Not on filedocumented in this encounter Care Teams Snow Removal/Plowing Relationship Specialty Start Date End Date Lori Wyatt MD [facility] [address] [place] [address] PCP - General Internal Medicine 04/14/15 Bennett Morse MD [facility] [address] [address] Urology 04/14/15 Adelaida Winter MD [facility] [address] [address] Urology 06/28/15 Heber Trejo MD [address] [place] [address] [address] [place] [address] Urology 09/07/15 Kamila Boggs, RN Registered Nurse Urology 09/07/15 09/10/22 Lori Wyatt MD [facility] [address] [place] [address] Referring Physician Internal Medicine 09/07/15 Heber Trejo MD 420 [facility] [address] [place] [address] Assigned Surgical Provider 12/17/19 11/15/22 Tammy Maier CNP [address] [place] [address] Assigned Surgical Provider 11/16/22 05/16/23 Polly Wylie PA-C [address] [place] [address] Assigned Surgical Provider 05/17/23 documented as of this encounter
--- OUTSIDE RECORDS SUMMARY | 2024-04-13 21:51 | XMS_ITS | Clinical Summary ---
Author Organization [place] Address [address] [place] [address] Care Team Providers Care Process Maintenance Technician Name Role Phone Lori Wyatt MD Primary Care Provider Bennett Morse MD Unavailable Adelaida Winter MD Unavailable Unav ailable [facility] Unavailable [phone] Lori Wyatt MD Unavailable Polly Wylie PA-C Unavailable Allergies No known active allergies Medications lisinopril [...] migh t be different from the original. [email or web address] Problem Noted Date Diagnosed Date Somatic dysfunction [...] Encounters Date Type Department Care Team Description 03/15/2024 Travel from Last 3 Months Immunizations Name Administration Dates Next Due Flu 65+ (Fluad) 10/28/2018 Flu, Unspecified 11/08/2010 Hepatitis A (ADULT 19+) 09/22/2002,08/23/2001 Hepatitis B, Adult 03/26/2003,09/22/2002, 003 Influenza (H1N1) 02/14/2009 Influenza (High Dose) Trival ent,PF (Fluzone) 12/04/2017,11/27/2016,11/21/2014,2013 Influenza (IIV3) PF 2012 Influenza (prior to 2023) 11/08/2009 Influenza Vaccine >6 months,quad, PF 11/15/2015 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,01/25/2011 Pneumo Conj 13-V (2010&after) [...] AM CDT 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 Gender Identity Male 06/16/2020 9:59 AM CDT Sexual Orientation Not on file Last Filed Vital Signs Vital Sign Reading Time Taken Comments Blood Pressure 134/82 11/02/2018 11:44 AM CDT Pulse 57 11/02/2018 11:44 AM CDT Temperature 37 C (98.6 F) 09/20/2015 7:02 AM CDT Respiratory Rate 17 09/20/2015 7:02 AM CDT Oxygen Saturation 95% 09/20/2015 7:02 AM CDT Inhaled Oxygen Concentration - - Weight 97.5 kg (215 lb) 11/05/2022 12:18 PM CDT Height 182.9 cm (6') 11/02/2018 11:44 AM CDT Body Mass Index 29.16 11/02/2018 11:44 AM CDT Plan of Treatment Upcoming Encounters Date Type Department Care Team (Late st Contact Info) Description 05/24/2024 1:30 PM CDT Virtual Visit [facility] [address] 4th [place] [address] Heber Trejo MD [address] [place] [address] Health Maintenance Due Date Last Done Comments [...] series) 2021 PHQ-2 (once per calendar year) 2024 11/05/2022, 04/22/2022, 06/19/2020, Additional history exists COVID-19 Vaccine ( season) 2024 12/01/2023, 07/24/2023, 11/12/2022, Additional history exists DTAP/TDAP/TD IMMUNIZATION (3 - Td or Tdap) 07/23/2033 07/24/2023, 11/25/2013, 08/15/2013 Pneumococcal Vaccine: 50+ Years Completed 11/21/2014, 01/10/2012 ZOSTER IMMUNIZATION Completed 01/11/2020, 0 INFLUENZA VACCINE Completed 12/01/2023, , 11/05/2021, Additional history exists HPV IMMUNIZATION Aged Out No longer e ligible based on patient's age to complete this topic MENINGITIS IMMUNIZATION Aged Out No l onger eligible based on patient's age to complete this topic Procedures Procedure Name Priority Date/Time Associated Diagnosis Comments CBC WITH PLATELETS Routine 09/19/2015 5: 16 AM CDT Prostate cancer (H) BASIC METABOLIC PANEL Routine 09/19/2015 5:16 AM CDT Prostate cancer (H) VAIBHAV[facility] COLONOSCOPY THRU STOMA, DIAGNOSTIC Routine 08/29/2004 from Last 3 Months or Most Recently Relevant to Health Maintenance Results * (ABNORMAL) Basic metabolic panel (09/19/2015 5:16 AM CDT) Sodium 143 133 - 144 mmol/L [facility] Potassium 3.7 3.4 - 5.3 mmol/L [facility] Chloride 111(H) 94 - 109 mmol/L [facility] Carbon Dioxide 24 20 - 32 mmol/L [facility] Anion Gap 8 3 - 14 mmol/L [facility] Glucose 132(H) 70 - 99 mg/dL [facility] Urea Nitrogen 18 7 - 30 mg/dL [facility] Creatinine 1.23 0.66 - 1.25 mg/dL [facility] GFR Estimate 58(L) >60 mL/min/1.7 m2 [facility] Comment:Non GFR Calc GFR Estimate If Black 71 >60 mL/min/1.7 m2 [facility] Comment: GFR Calc Calcium 7.9(L) 8.5 - 10.1 mg/dL [facility] Blood specimen (specimen) 09/19/2015 5:16 AM CDT 09/19/2015 5:17 AM CDT us Lori Joseph MD LAB - BLOOD ORDERABLES Final Result Performing Organization Address City/State/[facility] Co de Phone Number [facility] [address] [place] [address] * (ABNORMAL) CBC with platelets (09/19/2015 5:16 AM CDT) WBC 9.0 4.0 - 11.0 10e9/L [facility] RBC Count 4.23(L) 4.4 - 5.9 10e12/L [facility] Hemoglobin 13.3 13.3 - 17.7 g/dL [facility] Hematocrit 37.2(L) 40.0 - 53.0 % [facility] MCV 88 78 - 100 fl [facility] MCH 31.4 26.5 - 33.0 pg [facility] MCHC 35.8 31.5 - 36.5 g/dL [facility] RDW 12.2 10.0 - 15.0 % [facility] Platelet Count 187 150 - 450 10e9/L [facility] Blood specimen (specimen) 09/19/2015 5:16 AM CDT 09/19/2015 5:17 AM CDT us Lori Joseph MD LAB - BLOOD ORDERABLES Final Result [facility] [address] [place] [address] * COLONOSCOPY (08/29/2004) us Lilliana.A. Labor Relations Specialist PROCEDURES Final Result Performing Organization Address City/[facility]/ZIP Co de Phone Number [facility] [place] [address] from Last 3 Months or Most Recently Relevant to Health Maintenance Insurance [facility] MEDICARE [facility] MEDICARE Advance Directives For more information, please contact: [phone] * Full Code (Latest Code Status on File) Date Activated Date Inactivated Comments 09/18/2015 4:08 PM 09/20/2015 4:59 PM * Full Code Date Activated Date Inactivated Comments 09/18/2015 2:44 PM 09/18/2015 4:08 PM Care Teams Process Maintenance Technician Relationship Specialty Start Date End Date Lori Wyatt MD [facility] [address] [place] [address] PCP - General Internal Medicine 04/14/15 Bennett Morse MD [facility] [address] [address] Urology 04/14/15 Adelaida Winter MD NPI: [id number] [place] [address] UROLOGY [address] [address] Urology 06/28/15 Heber Trejo MD 420 [facility] [address] [place] [address] Urology 09/07/[address] [facility] & [address] [address] Referring Physician Internal Medicine 09/07/15 Polly Wylie PA-C [address] [place] [address] Assigned Surgical Provider 05/17/23
--- OUTSIDE RECORDS SUMMARY | 2024-04-13 21:51 | XMS_ITS | Encounter Summary ---
Author Organization [facility] Address [address] [place] [address] Care Team Providers Care Doll Repairer Name Role Phone Lori Wyatt MD Primary Care Provider Bennett Morse MD Unavailable [phone] Adelaida Winter MD Unavailable Unav ailable Heber Trejo MD Unavailable [phone] Kamila Boggs RN Unavailable [phone] Lori Wyatt MD Unavailable [phone] Heber Trejo MD Unavailable [phone] Tammy Maier CNP Unavailable [phone] Polly Wylie PA-C Unavailable [phone] Encounter Details Date Type Department Care Team (Late st Contact Info) Description 06/28/2015 [facility] and [facility] [address] [facility] [address] [place] [address] Adelaida Winter MD INACTIVE IN MA OF 06/23/2020 Social History Tobacco Use Types Packs/Day Years Used Date Smoking Tobacco: Never Smokeless Tobacco: Never Alcohol Use Standard Drinks/Week Comments Yes 0 (1 standard drink = 0.6 oz pur e alcohol) occ glass wine Sex and Gender Information Value Date Recorded Sex Assigned at Male 06/16/2020 9:59 AM CDT 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 Gender Identity Male 06/16/2020 9:59 AM CDT Sexual Orientation Not on file documented as of this encounter Plan of Treatment Upcoming Encounters Date Type Department Care Team (Late st Contact Info) Description 05/24/2024 1:30 PM CDT Virtual Visit [facility] [address] 4th [place] [address] Heber Trejo MD [address] [place] [address] [address] [place] [address] documented as of this encounter Visit Diagnoses Not on filedocumented in this encounter Care Teams Doll Repairer Relationship Specialty Start Date End Date Lori Wyatt MD [address] [address] PCP - General Internal Medicine 04/14/15 Bennett Morse MD [facility] [address] [place] [address] Urology 04/14/15 Adelaida Winter MD [facility] [address] [address] Urology 06/28/15 Heber Trejo MD [address] [place] [address] [address] [place] [address] Urology 09/07/15 Kamila Boggs, RN Registered Nurse Urology 09/07/15 09/10/22 Lori Wyatt MD [facility] [address] [place] [address] Referring Physician Internal Medicine 09/07/15 Heber Trejo MD 420 [facility] [address] [place] [address] Assigned Surgical Provider 12/17/19 11/15/22 Tammy Maier CNP [address] [place] [address] Assigned Surgical Provider 11/16/22 05/16/23 Polly Wylie PA-C [address] [place] [address] Assigned Surgical Provider 05/17/23 documented as of this encounter
--- OUTSIDE RECORDS SUMMARY | 2024-04-13 21:51 | XMS_ITS | Continuity of Care Document ---
Author Organization [facility] [place] Address [address] [place] [address] [address] [place] [address] Phone Care Team Providers Care Forge Utility Worker Name Role Phone Corey BEAVERS, Amijasmeet Unavailable Unavailable Procedures Procedure Date Office consultation, moderate 0 X-ray exam of neck spine2-3 views Advance Directives Directive Yes / No Effective Date File Name No Information Encounters Encounter Description Practice Location Reason(s) For Visit Diagnoses Date Provider Providers Copied on Encounter Z [facility], [address] [place] [address], [place], [address], [place] tel:[phone] [facility] No Information 2 Corey Live. [facility], [address] [place] [address] [address], [place], [place], [id number], [place]. tel:[phone] Office consultation, moderate Z [facility], [address] [place], [place] [address], [place], [address], [place] tel:[phone] [facility] No Information 0 Virgilio Rojas. [facility], [address] [facility] , [place], [address], [place]. tel:[phone] Referring Provider: Last Donohue, [facility] [address] [place] [address], [address]. tel:[phone] Family History Family Member Type Diagnosis Age At Onset No Information Payers Payer name Insurance type Covered republican ID Hany osborne(s) [facility] [id number] Social History Type Description Quantity Date Captured [...]
--- OUTSIDE RECORDS SUMMARY | 2024-04-13 21:51 | XMS_ITS | Encounter Summary ---
Author Organization [facility] Address [address] [place] [address] Care Team Providers Care Butcher Scullion Name Role Phone Lori Wyatt MD Primary Care Provider Bennett Morse MD Unavailable Adelaida Winter MD Unavailable Unav ailable Heber Trejo MD Unavailable [phone] Kamila Boggs RN Unavailable [phone] Lori Wyatt MD Unavailable Heber Trejo MD Unavailable Tammy Maier CNP Unavailable [phone] Polly Wylie PA-C Unavailable Encounter Details Date Type Department Care Team (Late st Contact Info) Description 01/25/2016 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 Gender Identity Male 06/16/2020 9:59 AM CDT Sexual Orientation Not on file documented as of this encounter Plan of Treatment Upcoming Encounters Date Type Department Care Team (Late st Contact Info) Description 05/24/2024 1:30 PM CDT Virtual Visit [facility] [address] 4th [place] [address] Heber Trejo MD [address] [place] [address] [address] [place] [address] documented as of this encounter Visit Diagnoses Not on filedocumented in this encounter Care Teams Butcher Scullion Relationship Specialty Start Date End Date Lori Wyatt MD [facility] [address] [place] [address] PCP - General Internal Medicine 04/14/15 Bennett Morse MD [facility] [address] [address] Urology 04/14/15 Adelaida Winter MD [facility] [address] [address] Urology 06/28/15 Heber Trejo MD [address] [place] [address] [address] [place] [address] Urology 09/07/15 Kamila Boggs, RN Registered Nurse Urology 09/07/15 09/10/22 Lori Wyatt MD [facility] [address] [place] [address] Referring Physician Internal Medicine 09/07/15 Heber Trejo MD [address] [facility] 394 [place] [address] Assigned Surgical Provider 12/17/19 11/15/22 Tammy Maier CNP [address] [place] [address] Assigned Surgical Provider 11/16/22 05/16/23 Polly Wylie PA-C [address] [place] [address] Assigned Surgical Provider 05/17/23 documented as of this encounter
--- OUTSIDE RECORDS SUMMARY | 2024-04-13 21:51 | XMS_ITS | Encounter Summary ---
Author Organization [facility] Address [address] [place] [address] Care Team Providers Care Dredging Inspector Name Role Phone Eric Cervantes Primary Care Provider Dayne ramirez Encounter Details Date Type Department Care Team (Late Contact Info) Description 01/22/2010 2:25 PM [facility] [address] [place] [phone] Mau Dobbs MD [facility] [address] [place] [address] [address] [place] [address] Social History Tobacco Use Types Packs/Day Years Used Date Smoking Tobacco: Never Smokeless Tobacco: Never Alcohol Use Standard Drinks/Week Comments Yes 0 (1 standard drink = 0.6 oz pur e alcohol) occ glass wine Sex and Gender Information Value Date Recorded Sex Assigned at Male 06/16/2020 9:59 AM CDT 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 Gender Identity Male 06/16/2020 9:59 AM CDT Sexual Orientation Not on file documented as of this encounter Plan of Treatment Upcoming Encounters Date Type Department Care Team (Late Contact Info) Description 05/24/2024 1:30 PM CDT Virtual Visit [facility] [place] [address] [facility] [address] 4th [place] [address] Heber Trejo MD [address] [place] [address] [address] [place] [address] documented as of this encounter Visit Diagnoses Not on filedocumented in this encounter Care Teams Dredging Inspector Relationship Specialty Start Date End Date Eric Cervantes PCP - General 08/29/04 04/13/15 documented as of this encounter
--- OUTSIDE RECORDS SUMMARY | 2024-04-13 21:51 | XMS_ITS | Encounter Summary ---
Author Organization [facility] Address [address] [place] [address] Care Team Providers Care Cushion Worker Name Role Phone Lori Wyatt MD Primary Care Provider [phone] Bennett Morse MD Unavailable [phone] Adelaida Winter MD Unavailable Unav ailable Heber Trejo MD Unavailable [phone] Kamila Boggs RN Unavailable [phone] Lori Wyatt MD Unavailable Heber Trejo MD Unavailable [phone] Tammy Maier CNP Unavailable [phone] Polly Wylie PA-C Unavailable [phone] Encounter Details Date Type Department Care Team (Late st Contact Info) Description 08/26/2015 [facility] [address] [facility] 4th [place] [address] Adelaida Winter MD [facility] 06/23/2020 Social History Tobacco Use Types Packs/Day Years Used Date Smoking Tobacco: Never Smokeless Tobacco: Never Alcohol Use Standard Drinks/Week Comments Yes 0 (1 standard drink = 0.6 oz pur e alcohol) occ glass wine Sex and Gender Information Value Date Recorded Sex Assigned at Male 06/16/2020 9:59 AM CDT 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 Gender Identity Male 06/16/2020 9:59 AM CDT Sexual Orientation Not on file documented as of this encounter Plan of Treatment Upcoming Encounters Date Type Department Care Team (Late st Contact Info) Description 05/24/2024 1:30 PM CDT Virtual Visit [facility] [address] 4th [place] [address] Heber Trejo MD [address] [place] [address] [address] [place] [address] documented as of this encounter Visit Diagnoses Not on filedocumented in this encounter Care Teams Cushion Worker Relationship Specialty Start Date End Date Lori Wyatt MD [address] [address] PCP - General Internal Medicine 04/14/15 Bennett Morse MD [facility] [address] [place] [address] Urology 04/14/15 Adelaida Winter MD [facility] [address] [address] Urology 06/28/15 Heber Trejo MD [address] [place] [address] [address] [place] [address] Urology 09/07/15 Kamila Boggs, RN Registered Nurse Urology 09/07/15 09/10/22 Lori Wyatt MD [facility] [address] [place] [address] Referring Physician Internal Medicine 09/07/15 Heber Trejo MD [address] [facility] [address] [place] [address] Assigned Surgical Provider 12/17/19 11/15/22 Tammy Maier CNP [address] [place] [address] Assigned Surgical Provider 11/16/22 05/16/23 Polly Wylie PA-C [address] [place] [address] Assigned Surgical Provider 05/17/23 documented as of this encounter
--- OUTSIDE RECORDS SUMMARY | 2024-04-13 21:51 | XMS_ITS | Encounter Summary ---
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 Gender Identity Male 06/16/2020 9:59 AM CDT Sexual Orientation Not on file documented as of this encounter Plan of Treatment Upcoming Encounters Date Type Department Care Team (Late st Contact Info) Description 05/24/2024 1:30 PM CDT Virtual Visit [facility] [address] [address] Heber Trejo MD [address] [place] [address] [facility] [address] [place] [address] documented as of this encounter Visit Diagnoses Not on filedocumented in this encounter Additional Health Concerns Assessment Noted Time PHQ-9 Depression Total Score: 1 11/03/19 19 11:41 AM CDT documented as of this encounter Care Teams Credit Officer Relationship Specialty Start Date End Date Lori Wyatt MD [facility] [address] [place] [address] PCP - General Internal Medicine 04/14/15 Bennett Morse MD [facility] [address] [place] [address] Urology 04/14/15 Adelaida Winter MD [facility] [address] [place] [address] Urology 06/28/15 Heber Trejo MD [address] [address] Urology 09/07/15 Lori Wyatt MD [facility] [address] [place] [address] Referring Physician Internal Medicine 09/07/15 Polly Wylie PA-C [address] [place] [address] Assigned Surgical Provider 05/17/23 documented as of this encounter
--- OUTSIDE RECORDS SUMMARY | 2024-04-13 21:51 | XMS_ITS | Encounter Summary ---
Author Organization [facility] Address [address] [place] [address]. [place] [address] Care Team Providers Care Donor Specialist Name Role Phone Lori Wyatt MD Primary Care Provider Bennett Morse MD Unavailable Adelaida Winter MD Unavailable Unav ailable Heber Trejo MD Unavailable [phone] Kamila Boggs RN Unavailable [phone] Lori Wyatt MD Unavailable Heber Trejo MD Unavailable Tammy Maier CNP Unavailable [phone] Polly Wylie PA-C Unavailable [phone] Encounter Details Date Type Department Care Team (Late st Contact Info) Description 11/27/2020 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 Gender Identity Male 06/16/2020 9:59 AM CDT Sexual Orientation Not on file documented as of this encounter Plan of Treatment Upcoming Encounters Date Type Department Care Team (Late st Contact Info) Description 05/24/2024 1:30 PM CDT Virtual Visit [facility] [address] 4th [place] [address] Heber Trejo MD [address] [place] [address] documented as of this encounter Visit Diagnoses Not on filedocumented in this encounter Additional Health Concerns Assessment Noted Time PHQ-9 Depression Total Score: 1 11/03/19 19 11:41 AM CDT documented as of this encounter Care Teams Donor Specialist Relationship Specialty Start Date End Date Lori Wyatt MD [address] [address] PCP - General Internal Medicine 04/14/15 Bennett Morse MD [facility] [address] [address] Urology 04/14/15 Adelaida Winter MD [facility] [address] [address] Urology 06/28/15 Heber Trejo MD [address] [place] [address] Urology 09/07/15 Kamila Boggs, RN Registered Nurse Urology 09/07/15 09/10/22 Lori Wyatt MD [facility] [address] [address] Referring Physician Internal Medicine 09/07/15 Heber Trejo MD [address] [facility] [address] [place] [address] Assigned Surgical Provider 12/17/19 11/15/22 Tammy Maier CNP [address] [place], [place] [address] Assigned Surgical Provider 11/16/22 05/16/23 Polly Wylie PA-C [address] [place] [address] Assigned Surgical Provider 05/17/23 documented as of this encounter
--- OUTSIDE RECORDS SUMMARY | 2024-04-13 21:51 | XMS_ITS | Clinical Summary ---
Author Organization [facility] Address [address] [place] [address] Care Team Providers Care Service Operator Name Role Phone Tonya Pradhan MD Primary Care Provider + Allergies Active Allergy Reactions Criticality Noted Date Comments Hydrocodone Rash 05/22/2013 HYDROCODONE - Adverse reactions if uses more than 1-2days Medications omeprazole (PRILOSEC) 20 mg capsule Take 20 [...] daily with a meal. 0 04/12/2015 Active triamterene-hyd rochlorothiazid e, 37.5-25 mg, (DYAZIDE) 37.5-25 mg capsule Take 1 Capsule by mouth every morning. Active rosuvastatin (CRESTOR) 5 mg tablet Take 5 mg by mouth once daily. 12/23/2019 Active hydrocodone/rocky taminophen (VICODIN ORAL) Take 1 Tablet by mouth every 4 hours if needed. 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 Gender Identity Not on file Sexual Orientation Not on file Obstetrics History Last Filed Vital Signs Vital Sign Reading Time Taken Comments Blood Pressure 128/78 09/13/2020 3:30 PM CDT Pulse 96 11/08/2020 11:51 AM CDT Temperature 36.1 C (96.9 F) 09/13/2020 2:21 PM CDT Respiratory Rate 16 11/08/2020 11:5 1 AM [...] for age 18-79 1964 Tetanus booster 1966 Pneumococcal series for age 50+ (1 of 1 - PCV) 997 Zoster (shingles) series for age 50+ (1 of 2) 12/15/18 97 Medicare Wellness for age 65+ 12/16/2011 BMI (ht and wt on same day) for age 18+ 04/12/2016 0 04/12/2015 RSV vaccine for adults or pr egnancy (1 - 1-dose 75+ series) 2021 COVID-19 vaccine series (1 - 2023- season) 4 Influenza for age 65+ 10/26/2023 Insurance [employer] [place] [address] [employer] [place] [address] Advance Directives * Full Code (Latest Code Status on File) Date Activated Date Inactivated Comments 09/13/2020 10:42 AM 09/13/2020 5:59 PM Should be d iscussed pre operatively with anesthesia or surgeon Question Answer Comments Code Status Discussion: Not Discussed Care Teams Service Operator Relationship Specialty Start Date End Date Tonya Pradhan MD [address] [place] [address] PCP - General Family Practice 09/12/20
--- OUTSIDE RECORDS SUMMARY | 2024-04-13 21:51 | XMS_ITS | Encounter Summary ---
Author Name [facility] [facility] [place] Address [address] [place] [address] Care Team Providers Care Textile Screen Printer Name Role Phone ISMAEL NGUYEN Primary Care [...] PART B Nov 25, 2011 PART B [id number] Jayde MITCHELL [facility] PATIENT MEDICARE (WNR) MEDICARE (M) PART A Nov 25, 2011 PART A [id number] Jayde MICTHELL [facility] PATIENT Selected Encounter This section includes the information on record at NH for the Encounter. Date/Time Encounter Type Encounter Description Reason Provider Source July 24, 2023 11:00 AM OFFICE O/P NEW [place] 60 MIN PRIMARY CARE/MEDICINE ICD-10-CM M25.561 Pain in right knee ISMAEL NGUYEN Christophe Encounter Template Text not used by [place] Assessments - Encounter Diagnoses This section includes the primary and secondary diagnoses documented for the Encounter. Date/Time Primary/Secondary Diagnosis Diagnosis Name Provider Source July 24, 2023 12:22 PM PRIMARY Pain in right knee YOLIS REAGAN [facility] July 24, 2023 12:22 PM SECONDARY Encounter for immunization YOLIS REAGAN [facility] Plan of Treatment: Future Appointments (+ 6 months) and Future Tests (+/- 45 days) The Plan of Treatment section includes future care activities for the [facility] This section includes future appointments and future orders which are active, pending or scheduled. Future Appointments This section includes appointments that were scheduled to occur 6 months from the date of the Encounter, up to a maximum of 20 appointments. The data comes from all [facility]. Appointment Date/Time Appointment Type Appointme nt Facility Name Aug 12, 2023 08:30 AM AMBULATORY - SURGERY [facility] Vital Signs: All taken on the encounter date This section contains inpatient and outpatient Vital Signs collected on the date of the Encounter. Date/Time Temperature Pulse Blood Pressure Respiratory Rate SP02 Pain Height Weight Body Mass Index Source July 24, 2023 11:13 AM 97.1 66 142/85 [address] [facility] Immunizations: All administered on the encounter date This section contains immunizations associated to the Encounter. Immunization Series Date Issued Reaction Comments COVID-19 ([employer]), MRNA, LNP -S, PF, NITA-SUCROSE, 30 MCG/0.3 ML (AGES 12+ YEARS) July 24, 2023 TDAP July 24, 2023 Social History: Smoking Status (Most current) and Tobacco Use (All prior to encounter date) This section includes the most current, and the historical, smoking and tobacco- related health factors from the NH facility where the Encounter took place. Current Smoking Status This section includes the most current smoking, or tobacco-related health factor, from the NH facility where the Encounter took place. Date/Time Current Smoking Status Comment Harshil turpin July 24, 2023 11:00 AM NH-TOBACCO NEVER USED [facility] Radiology Reports: +/- 30 days of the [...] the Encounter. The data comes from all [facility]. Date/Time Radiology Report Provider Source July 24, 2023 12:27 PM KNEE RIGHT 3 VIEWS : VERN MITCHELL [id number] Exm Date: JULY 24, 2023@12:27 Req Phys: ISMAEL NGUYEN Pat Loc: [facility] PACT AJIT 4D (Req'g Loc) Img Loc: MAIN X-RAY Service: [place] [address] (Case [id number] COMPLETE) KNEE RIGHT 3 VIEWS (RAD Detailed) CPT:33197 Proc Modifiers : STANDING RIGHT Reason for [...] 24, 2023 Date Verified: JULY 24, 2023 Vascular Sonographer E-Sig:/ES/DAGOBERTO MONTALVO MD Report: EXAMINATION: KNEE RIGHT 3 VIEWS 07/24/2023 12:27 PM INDICATION: OA, knee pain Impression: Degenerative changes with mild narrowing of the lateral compartment. Mild narrowing of portions of the patellofemoral compartment. Bony spurring more prominent along the lateral and patellofemoral joint line margins. Slight joint effusion. No comparison exam. Primary Interpreting Staff: DAGOBERTO MONTALVO MD, RADIOLOGIST (Vascular Sonographer) /RTS DAGOBERTO MONTALVO [facility] Encounter Notes: All associated encounter notes This section contains the clinical notes associated to the Encounter. Date/Time Encounter Note(s) Provider Source Jul 28, 2023 08:14 AM ADDENDUM: LOCAL TITLE: Addendum STANDARD TITLE: ADDENDUM DATE OF NOTE: JUL 28, 2023@08:14:13 ENTRY DATE: JUL 28, 2023@08:14:14 AUTHOR: ISMAEL NGUYEN EXP COSIGNER: URGENCY: STATUS: COMPLETED I reviewed [facility] records in [place]. Appears Sildenafil is rxed at 20mg daily for ED. He told me he will take 60mg together about every 3d prn sexual activity. Will rx at 50-100mg prn with the [facility] limit of #18 (of 100mg tablets) / 90d. Cr 1.23 in [place] August 2015 through [facility]. PACT RN - snu update pt to this. ([facility] but likey hasn't yet) /wen/ ISMAEL NGUYEN PA-C Internal Medicine (Primary Care) Signed: 07/28/2023 08:21 Receipt Acknowledged By: 07/28/2023 11:19 /wen/ NICHELLE Hitchcock RN REGISTERED NURSE --- Original Document --- 07/24/23 MEDICINE CLINIC NOTE: ANNUAL Nurse's notes reviewed from today. 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 S/p steroid injections without relief, then rooster comb injection x3 with relief for at least the last year. Starting to have more night time pain. He walks, but now avoids running, pickleblal, biking. Would like to keep hunting pheasants. non-VA Ortho surgeon has discussed knee replacement in future as well. -Ortho consult with XR - interested in hyaluronic acid -has done past PT; does HEP -doesn't like taking OTC meds -wears knee sleeve # Community Care: -PCP - [facility] -[place] - Orthopedic and Derm -Uro - [facility] # HTN: -Triamterene-HCTZ, Lisinopril # HLD: -statin # GERD: Was offered through non-VA, but doesn't want surgery -PPI, sucralfate (otherwise has symptoms) # Prostate cancer s/p prostate removal: # Reports nerve removed: -Sildenafil -tracked through non-VA Uro # Obesity: BMI: 30.7 in 2023 # Substance use: -Tobacco: denies -Alcohol: -Other: # Mental health - none known # Routine Health Maintenance - defer to non-VA PCP -Home care / co-managed care: -ASCVD risk screen (40-75): on statin -CRC screen (45-75): -AAA screen (65-75 if ever smoked): -Lung CA screen (50-80): -HCV screen (18-79): -Last PSA (50-70?): PSA____ # RTC - RTC in 1y without labs ~July 2024 Objective: Social History: Living situation - [place] (came from large family / many cousins) Interests - Exercise - likes hunting, past athlete (limited now with knee pain) Diet - Support/Stress management - Sleep - Employment - Education - Branch of Service - Exposures - Family History: Multiple first cousins with melenoma Past Surgical History: -prostate removal ~2015 -cholecystectomy -kidney stone lithotripsy Problem List - Active - NONE FOUND Allergies: Patient has answered NKA Medications: Active Outpatient Medications (including Supplies): No Medications Found MEDICATION RECONCILIATION Outpatient At this visit I have reviewed the medication list, and discussed relevant medications with the patient/surrogate. (x)Patient was informed of available lab, imaging, and other study results associated with today's visit. Subjective: HPI: Establish care. ROS: 14-point system negative unless discussed above. EXAM: VS: Temp: 97.1 F [36.2 C] (07/24/2023 11:13) BP: 142/85 (07/24/2023 11:13) Pulse:66 (07/24/2023 11:13) Resp: 16 (07/24/2023 11:13) Pain: 2 (07/24/2023 11:13) Weight: WEIGHTS IN LAST 6 MONTHS: 228.8 (JULY 24, 2023@11:13:55) Body Mass Index: 30.7 GENERAL: Well nourished, well developed. Not in acute distress. HEENT: Normocephalic/atraumatic. Eyes non-icteric/no injection. No rhinorrhea. CV: Regular rate and rhythm. Normal s1, s2. No murmur. LUNGS: Non-labored breathing. Clear to auscultation bilaterally. ABDOMEN: Active bowel sounds. Abdomen soft, non-tender. MSK: No LE edema. Skin: Warm, dry. NEURO: Normal gait. No gross focal neuro deficits. (x) Patient/Caregiver indicates readiness to learn, verbalizes understanding, agreement and satisfaction with the treatment plan. Patient/Caregiver doesn't have any further questions today. 70 minutes spent on exam, charting, orders. /wen/ ISMAEL NGUYEN PA-C Internal Medicine (Primary Care) Signed: 07/24/2023 12:22 07/28/2023 ADDENDUM STATUS: UNSIGNED You may not VIEW this UNSIGNED Addendum. ISMAEL NGUYEN [facility] July 24, 2023 11:32 AM INTERNAL MEDICINE NOTE: LOCAL TITLE: MEDICINE CLINIC NOTE STANDARD TITLE: INTERNAL MEDICINE NOTE DATE OF NOTE: JULY 24, 2023@11:32 ENTRY DATE: JULY 24, 2023@11:32:21 AUTHOR: ISMAEL NGUYEN EXP COSIGNER: URGENCY: STATUS: COMPLETED MEDICINE CLINIC NOTE Has ADDENDA ANNUAL Nurse's notes reviewed from today. 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 S/p steroid injections without relief, then rooster comb injection x3 with relief for at least the last year. Starting to have more night time pain. He walks, but now avoids running, pickleblal, biking. Would like to keep hunting pheasants. non-VA Ortho surgeon has discussed knee replacement in future as well. -Ortho consult with XR - interested in hyaluronic acid -has done past PT; does HEP -doesn't like taking OTC meds -wears knee sleeve # Community Care: -PCP - [facility] -[place] - Orthopedic and Derm -Uro - [facility] # HTN: -Triamterene-HCTZ, Lisinopril # HLD: -statin # GERD: Was offered through non-VA, but doesn't want surgery -PPI, sucralfate (otherwise has symptoms) # Prostate cancer s/p prostate removal: # Reports nerve removed: -Sildenafil -tracked through non-VA Uro # Obesity: BMI: 30.7 in 2023 # Substance use: -Tobacco: denies -Alcohol: -Other: # Mental health - none known # Routine Health Maintenance - defer to non-VA PCP -Home care / co-managed care: -ASCVD risk screen (40-75): on statin -CRC screen (45-75): -AAA screen (65-75 if ever smoked): -Lung CA screen (50-80): -HCV screen (18-79): -Last PSA (50-70?): PSA____ # RTC - RTC in 1y without labs ~July 2024 Objective: Social History: Living situation - [place] (came from large family / many cousins) Interests - Exercise - likes hunting, past athlete (limited now with knee pain) Diet - Support/Stress management - Sleep - Employment - Education - Branch of Service - Exposures - Family History: Multiple first cousins with melenoma Past Surgical History: -prostate removal ~2016 -cholecystectomy -kidney stone lithotripsy Problem List - Active - NONE FOUND Allergies: Patient has answered NKA Medications: Active Outpatient Medications (including Supplies): No Medications Found MEDICATION RECONCILIATION Outpatient At this visit I have reviewed the medication list, and discussed relevant medications with the patient/surrogate. (x)Patient was informed of available lab, imaging, and other study results associated with today's visit. Subjective: HPI: Establish care. ROS: 14-point system negative unless discussed above. EXAM: VS: Temp: 97.1 F [36.2 C] (07/24/2023 11:13) BP: 142/85 (07/24/2023 11:13) Pulse:66 (07/24/2023 11:13) Resp: 16 (07/24/2023 11:13) Pain: 2 (07/24/2023 11:13) Weight: WEIGHTS IN LAST 6 MONTHS: 228.8 (JULY 24, 2023@11:13:55) Body Mass Index: 30.7 GENERAL: Well nourished, well developed. Not in acute distress. HEENT: Normocephalic/atraumatic. Eyes non-icteric/no injection. No rhinorrhea. CV: Regular rate and rhythm. Normal s1, s2. No murmur. LUNGS: Non-labored breathing. Clear to auscultation bilaterally. ABDOMEN: Active bowel sounds. Abdomen soft, non-tender. MSK: No LE edema. Skin: Warm, dry. NEURO: Normal gait. No gross focal neuro deficits. (x) Patient/Caregiver indicates readiness to learn, verbalizes understanding, agreement and satisfaction with the treatment plan. Patient/Caregiver doesn't have any further questions today. 70 minutes spent on exam, charting, orders. /wen/ ISMAEL NGUYEN PA-C Internal Medicine (Primary Care) Signed: 07/24/2023 12:22 07/28/2023 ADDENDUM STATUS: COMPLETED I reviewed [facility] records in [place]. Appears Sildenafil is rxed at 20mg daily for ED. He told me he will take 60mg together about every 3d prn sexual activity. Will rx at 50-100mg prn with the [place] limit of #18 (of 100mg tablets) / 90d. Cr 1.23 in [place] August 2015 through [facility]. PACT RN - sun update pt to this. (He plans to sign up for [facility] but likey hasn't yet) /wen/ ISMAEL NGUYEN PA-C Internal Medicine (Primary Care) Signed: 07/28/2023 08:21 Receipt Acknowledged By: 07/28/2023 11:19 /wen/ NICHELLE Hitchcock RN REGISTERED NURSE 07/28/2023 ADDENDUM STATUS: COMPLETED Discussed the above with the . He agrees to trial 50mg first and to titrate up to 100mg as needed. Precautions discussed and states, Yeah, I've been on it for 6 years, but thanks for the reminder. verbalized understanding and agreement with the plan. /NICHELLE Arce RN REGISTERED NURSE Signed: 07/28/2023 11:20 ISMAEL NGUYEN [facility] July 24, 2023 11:05 AM INTERNAL MEDICINE OUTPATIENT NOTE: LOCAL TITLE: MEDICINE CLINIC NURSING NOTE STANDARD TITLE: INTERNAL MEDICINE OUTPATIENT NOTE DATE OF NOTE: JULY 24, 2023@11:05 ENTRY DATE: JULY 24, 2023@11:05:24 AUTHOR: RUBENS,LAXMI Gracia EXP COSIGNER: URGENCY: STATUS: COMPLETED MEDICINE CLINIC NURSING NOTE Has ADDENDA TYPE OF VISIT: Appointment Check In Type of appointment: In-person appointment REASON FOR VISIT: establish care ALLERGIES: Patient has answered NKA VITAL SIGNS: Blood Pressure: 142/85 (07/24/2023 11:13) 2nd BP: 127/84 Pulse: 62 Asymptomatic Pulse: 66 (07/24/2023 11:13) Respiration: 16 (07/24/2023 11:13) Temperature: 97.1 F [36.2 C] (07/24/2023 11:13) Weight: 228.8 lb [103.78 kg] (07/24/2023 11:13) Height: 72.5 in [184.2 cm] (07/24/2023 11:13) BMI: 30.7 O2 Sat: 95% (07/24/2023 11:13) Pain: 2 (07/24/2023 11:13) PAIN SCREEN: Patient is not having significant pain that they wish to discuss with their provider today. MEDICATION Over the Counter/Herbal Medications: The patient states that they take some outside medications and/or herbals. Toxic Exposure Screening: The /caregiver was asked if they believe the Maple experienced any toxic exposure(s), such as Airborne Hazards and Open [place], [place] War related exposures, Agent [place], Radiation, contaminated water at [place] or other such exposures, while serving in the [employer]. Maple has no concerns about toxic exposure(s) while serving in the [employer]. The Maple/caregiver was informed that we will continue to ask this screening question every 5 years. They can contact their provider/healthcare team if they have concerns about exposures and would like to be screened sooner. Printed information was offered and provided if desired. Suicide Screen: C-SSRS Screening [place] Suicide Severity Rating Scale (C-SSRS) screener 1.?Over the past month, have you wished you were or wished you could go to sleep and not wake up? No 2.?Over the past month, have you had any actual thoughts of killing yourself? No 3.?Over the past month, have you been thinking about how you might do this? Response not required due to responses to other questions. 4.?Over the past month, have you had these thoughts and had some intention of acting on them? Response not required due to responses to other questions. 5.?Over the past month, have you started to work out or worked out the details of how to kill yourself? Response not required due to responses to other questions. 6.?If yes, at any time in the past month did you intend to carry out this plan? Response not required due to responses to other questions. 7.?In your lifetime, have you ever done anything, started to do anything, or prepared to do anything to end your life (for example, collected pills, obtained a gun, gave away valuables, went to the roof but didn't jump)? No 8.?If YES, was this within the past 3 months? Response not required due to responses to other questions. Tobacco Pack Year History: Patient never smoked cigarettes or smoked FEWER THAN 100 cigarettes/lifetime Alcohol Use Screen (AUDIT-C): Alcohol Screen: SCREEN FOR ALCOHOL (AUDIT-C) An alcohol screening test (AUDIT-C) was negative (score=3). 1.?How often did you have a drink containing alcohol in the past year? Consider a drink to be a 12 ounce can or bottle of regular beer, 8 ounces of malt liquor, a 5 ounce glass of table wine, or a 1.5 ounce shot of liquor (like scotch, gin, or vodka). Two to three times per week 2.?How many drinks containing alcohol did you have on a typical day when you were drinking in the past year? Zero drinks 3.?How often did you have six or more drinks on one occasion in the past year? Never Depression Screening: Perform PHQ-2 A PHQ-2 screen was performed. The score was 0 which is a negative screen for depression. Over the past two weeks, how often have you been bothered by the following problems? 1.?Little interest or pleasure in doing things Not at all 2.?Feeling down, depressed, or hopeless Not at all PTSD Screening: PC-PTSD-5 A PTSD screening test (PC-PTSD-5) was negative (score=0). IN THE PAST MONTH, have you ever had any experience that was so frightening, horrible or traumatic. For example: A serious accident or fire a physical or sexual assault or abuse An earthquake or flood A war Seeing someone be killed or seriously injured Having a loved one through homicide or suicide 1.?Have you ever experienced this kind of event? NO 2.?Had nightmares about the event(s) or thought about the event(s) when you did not want to? Response not required due to responses to other questions. 3.?Tried hard not to think about the event(s) or went out of your way to avoid situations that reminded you of the event(s)? Response not required due to responses to other questions. 4.?Been constantly on guard, watchful, or easily startled? Response not required due to responses to other questions. 5.?[place] numb or detached from people, activities, or your surroundings? Response not required due to responses to other questions. 6.?[place] guilty or unable to stop blaming yourself or others for the event(s) or any problems the event(s) may have caused? Response not required due to responses to other questions. Nursing Annual Screening: Fall History Screen During the past 12 months, have you had any falls? Patient does not report any falls in the past 12 months. MEDICATIONS: Patient does not have an active prescription for one of the following medications: Antihypertensives, Antidepressants, Antipsychotics, Diuretics, or Opioid Analgesics (Contolled Substance medications used for pain). Script Talk Screen Are you able to read your prescription bottles with your glasses, magnifiers or other aids? Yes or patient not taking any prescriptions. Skin Screen Patient reports any current pressure ulcers, a history of pressure ulcers, or a wound from a medical billing clerk or Patient is bed-confined or a wheelchair-user or Patient requires assistance to transfer/change position No, Skin Screen is Negative Home Abuse/Violence Screen Is your home free of abuse and violence? Yes MOVE! Program Screen Body Mass Index (BMI)= 30.7 [place]: No data available [place] Hgb A1C: No data available [place] Hgb A1C: No data available Point of Care Hgb A1C: POC HGB A1C____ Outpatient Nutrition Screen Body Mass Index (BMI)= 30.7 [place]: No data available [place] Hgb A1C: No data available [place] Hgb A1C: No data available Point of Care Hgb A1C: POC HGB A1C____ Is patient's BMI less than 18.5? No Does patient have swallowing, coughing, or chewing problems affecting oral intake? No Has patient experienced unplanned weight loss or gain greater than 10 pounds over the last 2 months? No Is patient's Hgb A1C (Glycosylated Hemoglobin) greater than 9.5? Information not available Is patient receiving Total Parenteral Nutrition (TPN) or Tube Feedings? No Patient Health Education Screen BARRIERS/SPECIAL NEEDS: Hearing limitations Visual limitations PREFERRED STYLE OF LEARNING: Watching something Client Assistive Service (NAVEED) Screen Does the patient require assistance with outpatient visit? No MST Screening: Patient denies experiencing sexual trauma (MST). Homelessness/Food Insecurity Screen: In the past 2 months, have you been living in stable housing that you own, rent, or stay in as part of a household? Yes - Living in stable housing. Are you worried or concerned that in the next 2 months you may NOT have stable housing that you own, rent, or stay in as part of a household? No - Not worried about housing near future The Maple reports the following: Within the past 12 months, you worried whether your food would run out before you got money to buy more. Never true Within the past 12 months, the food you bought just didn't last and you didn't have money to get more. Never true Food Assistance Programs [facility] Food Assistance Programs [facility] Tobacco Use Screening: The patient has never used tobacco. /jeovanny ART LPN Signed: 07/24/2023 11:30 07/24/2023 ADDENDUM STATUS: COMPLETED COVID-19 Immunization: Pfizer Monovalent (Comirnaty) Administered: COVID-19 (PFIZER), MRNA, LNP-S, PF, NITA-SUCROSE, 30 MCG/0.3 ML (AGES 12+ YEARS) Date Administered: July 24, 2023 11:00 Campaign Associate: [employer] Lot: [id number] Exp Date: Oct 25, 2023 ND: [id number] Admin Route/Site: INTRAMUSCULAR/LEFT DELTOID Dosage: 0.3mL Vaccine Information Statement(s): COVID-19 MRNA VACCINE (12+ YRS) VACCINE VIS Dec 12, 2022 (BENINESE) Order By: Policy Administered By: Yolis Reagan Vaccine administered without complications. Td / Tdap Immunization: Administered: TDAP Date Administered: July 24, 2023 11:00 Campaign Associate: [employer] Lot: [id number] Exp Date: Aug 26, 2025 NDC: [id number] Admin Route/Site: INTRAMUSCULAR/RIGHT DELTOID Dosage: 0.5mL Vaccine Information Statement(s): TDAP (TETANUS, DIPHTHERIA, PERTUSSIS) VACCINE VIS Sep 29, 2020 (BENINESE) Order By: Policy Administered By: Yolis Reagan Vaccine Information Sheet (VIS) was given to the patient/caregiver, education regarding adverse reactions was discussed, as well as barriers to learning, if any, were acknowledged. /jeovanny REAGAN LPN Signed: 07/24/2023 12:23 LAXMI ART [facility]
--- OUTSIDE RECORDS SUMMARY | 2024-04-13 21:51 | XMS_ITS | Encounter Summary ---
Author Organization [facility] Address [address] [place] [address]. [place] [address] Care Team Providers Care Teaching Specialists Name Role Phone Lori Wyatt MD Primary Care Provider Bennett Morse MD Unavailable [phone] Adelaida Winter MD Unavailable Unav ailable Heber Trejo MD Unavailable [phone] Lori Wyatt MD Unavailable [phone] Polly Wylie PA-C Unavailable Encounter Details Date Type Department Care Team (Late st Contact Info) Description 07/24/2023 MyC Medical Advice [facility] [place] [address] [facility] SE 4th [place] [address] Heber Trejo MD 420 [facility] [address] [place] [address] Social History Tobacco Use Types [...] AM CDT 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 Gender Identity Male 06/16/2020 9:59 AM CDT Sexual Orientation Not on file documented as of this encounter Plan of Treatment Upcoming Encounters Date Type Department Care Team (Late st Contact Info) Description 05/24/2024 1:30 PM CDT Virtual Visit [facility] [address] 4th [place] [address] Heber Trejo MD [address] [address] documented as of this encounter Visit Diagnoses Not on filedocumented in this encounter Additional Health Concerns Assessment Noted Time PHQ-9 Depression Total Score: 1 11/03/19 11:41 AM CDT documented as of this encounter Care Teams Teaching Specialists Relationship Specialty Start Date End Date Lori Wyatt MD [address] [address] PCP - General Internal Medicine 04/14/15 Bennett Morse MD [facility] [address] [address] Urology 04/14/15 Adelaida Winter MD [facility] [address] [address] Urology 06/28/15 Heber Trejo MD [address] [place] [address] Urology 09/07/15 Lori Wyatt MD [facility] [address] [place] [address] Referring Physician Internal Medicine 09/07/15 Polly Wylie PA-C [address] [place] [address] Assigned Surgical Provider 05/17/23 documented as of this encounter
[2024-04-13 21:56] VITALS: BP 121/90; PULSE 63; RESP 18; TEMP 36.4; O2SAT 93; BMI 31.4
--- NOTE | 2024-04-13 22:07 | CRLHL7_ITS ---
For Patients: As a result of the Century Cures Act, medical imaging exams and procedure reports are released immediately into your electronic medical record. You may view this report before your referring provider. If you have questions, please contact your health care provider. INDICATION: Leg pain and swelling. TECHNIQUE: Ultrasound venous duplex lower right extremity. Compression venous exam was performed using foster-scale, color Doppler, and spectral Doppler analysis. COMPARISON: None. FINDINGS: Deep veins: Sonographic imaging demonstrates the right common femoral, deep femoral, superficial femoral, popliteal, posterior tibial and the contralateral common femoral veins to be fully compressible with normal color Doppler blood flow. Superficial veins: Greater saphenous vein is fully compressible. No popliteal cyst. IMPRESSION: Normal right lower extremity venous ultrasound, no sign of deep venous thrombosis. Dictated by Tez Duke MD @ 04/13/2024 11:16:21 PM (Electronically Signed)
--- NOTE | 2024-04-13 22:21 | ED.GENADULT ---
HPI - General Adult General Date Seen: 04/13/24 Chief complaint: Extremity Pain/Injury, Lower Stated complaint: possible blood clot middle r thigh Time Seen by Provider: 04/13/24 22:12 Source: patient Mode of arrival: ambulatory Limitations: no limitations History of Present Illness HPI narrative: Patient is a 78-year-old male presenting to the emergency department for right thigh pain. States the pain seems has started 2 days ago. Has been gradually getting worse. His is a history of blood clots and they are concerned he could be having a blood clot. He is not having any associated chest pain or shortness of breath. States the pain seems to be deep in his right thigh. No injuries that he is aware of to his right leg. Denies any numbness or weakness to his legs. No other concerns noted. Is not on any blood thinners. Related Data Home Medications ?Medication ?Instructions ?Recorded ?Confirmed sildenafil 25 mg tablet 25 mg PO QDAY PRN 11/29/21 12/23/23 Previous Rx's ?Medication ?Instructions ?Recorded lisinopril 10 mg tablet 10 mg PO QDAY #90 tabs 12/23/23 omeprazole 20 mg capsule,delayed 20 mg PO QDAY #90 caps 12/23/23 release rosuvastatin 5 mg tablet 5 mg PO QDAY #90 tabs 12/23/23 sucralfate 1 gram tablet 1 g PO BID #180 tabs 12/23/23 triamterene 37.5 1 cap PO QDAY #90 caps 12/23/23 mg-hydrochlorothiazide 25 mg capsule Allergies Allergy/AdvReac Type Severity Reaction Status Date / Time hydrocodone Allergy Unknown Verified 04/13/24 22:01 Review of Systems Narrative: Pertinent systems reviewed and were negative unless stated in HPI PFSH PFS Medical History Prostate cancer (2016) ?C61 - Malignant neoplasm of prostate (ICD-10) History of COVID-19 ?Z86.16 - Personal history of COVID-19 (ICD-10) Cluster headache ?G44.009 - Cluster headache syndrome, unspecified, not intractable (ICD-10) Vertigo (~06/2021) ?R42 - Dizziness and giddiness (ICD-10) Normal cardiac stress test (2006) Kidney calculus (2013) ?N20.0 - Calculus of kidney (ICD-10) History of thoracic outlet syndrome ?Z86.69 - Personal history of other diseases of the nervous system and sense organs (ICD-10) Headache (11/19/10) ?R51.9 - Headache, unspecified (ICD-10) Dyslipidemia ?E78.5 - Hyperlipidemia, unspecified (ICD-10) Surgical History Status post carpal tunnel release (2006) ?Z98.890 - Other specified postprocedural states (ICD-10) History of prostatectomy (2015) ?Z90.79 - Acquired absence of other genital organ(s) (ICD-10) History of lithotripsy (2013) ?Z98.890 - Other specified postprocedural states (ICD-10) History of cholecystectomy (2009) ?Z90.49 - Acquired absence of other specified parts of digestive tract (ICD-10) History of arthroscopy of right knee (2003) ?Z98.890 - Other specified postprocedural states (ICD-10) Family History Uncle Coronary artery disease Myocardial infarction, Onset Age: 72 Father Lymphoma Brother Prostate cancer Uncle Myocardial infarction, Onset Age: 65 Social History Narrative: ,retired preschool lead teacher, 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 non smoker, social drinker 7/week Exercise 3 -4 times per week walks 3 miles What is your current living situation?: I presently have a place to live Problems where you live: pests, such as bugs, ants, or mice In the past 12 months, utilities in danger of being shut off: no In past 12 months, lack of transportation kept you from medical appts, meetings, work, or getting things needed for daily living: no In the past 12 mos, have been you worried that your food would run out before you had money to buy more?: never true In the past 12 mos, the food you bought just didn't last and you didn't have money to buy more?: never true Smoking Status: Never smoker Do you use any of these nicotine containing products: None How often do you have a drink containing alcohol: never How often do you have six or more drinks on one occasion: Never AUDIT-C Alcohol total score: 0 Non-prescribed substance use: denies use How often does anyone, including family, friends and others, physically hurt you: never How often does anyone, including family, friends and others, insult or talk down to you: rarely How often does anyone, including family, friends and others, threaten you with harm: never How often does anyone, including family, friends and others, scream or curse at you: never service: No Health Related Social Needs: Inadequate housing (Z59.1) and Other personal risk factors, not elsewhere classified (Z91.89) Exam Narrative: Exam Narrative: Const: Well-nourished, Well-developed, in no distress Eyes: PERRL, no conjunctival injection, and symmetrical lids HENT: Atraumatic external nose and ears. Moist mucous membranes. Neck: Symmetric, trachea midline, No thyromegaly. CVS: RRR, No murmurs or gallops. Peripheral pulses 2+ and equal in all extremities RESP: Unlabored respiratory effort. Clear to auscultation bilaterally. GI: Nontender/Nondistended, No rebound or guarding. MSK:Extremities w/o deformity, Normal Active ROM Skin: Warm, Dry. No rashes or lesions. Neuro: Normal Muscle tone, No focal neurological deficits. Psych: Awake, Alert, & Oriented x3. Appropriate mood and affect. Const: Vital Signs, click to edit/add: Vital Signs - 24 hr 04/13/24 21:56 Temperature 97.5 F L Pulse Rate [Pulse Oximeter] 63 Respiratory Rate 18 Blood Pressure [Ri ght Upper Arm] 121/90 H Pulse Oximetry 93 Oxygen Delivery Me thod Room Air Course Vital Signs Vital signs: Initial Vital Signs Temperature 97.5 F L 04/13/24 21:56 Temperature Source Temporal Artery Scan 04/13/24 21:56 Pulse Rate 63 04/13/24 21:56 Respiratory Rate 18 04/13/24 21:56 Blood Pressure 121/90 H 04/13/24 21:56 Blood Pressure Mean 100 04/13/24 21:56 Blood Pressure Position Sitting 04/13/24 21:56 Pulse Oximetry 93 04/13/24 21:56 Oxygen Delivery Method Room Air 04/13/24 21:56 Vital Signs Temperature 97.5 F L 04/13/24 21:56 Pulse Rate 63 04/13/24 21:56 Respiratory Rate 18 04/13/24 21:56 Blood Pressure 121/90 H 04/13/24 21:56 Pulse Oximetry 93 04/13/24 21:56 Oxygen Delivery Method Room Air 04/13/24 21:56 Temperature 97.5 F L 04/13/24 21:56 Pulse Rate 63 04/13/24 21:56 Respiratory Rate 18 04/13/24 21:56 Blood Pressure 121/90 H 04/13/24 21:56 Pulse Oximetry 93 04/13/24 21:56 Oxygen Delivery Method Room Air 04/13/24 21:56 Medical Decision Making MDM Narrative Medical decision making narrative: Patient is a 78-year-old male presenting for right thigh pain. No signs of overlying erythema. No notable swelling noted. Some mild tenderness to palpation of his anterior mid thigh. At this time I do believe is reasonable to do a ultrasound to look for signs of a blood clot. No signs of cellulitis. Ultrasound showed no signs of a DVT. At this time I cannot say for certain what is causing his leg pain but I do not see any emergent issues. He will be discharged. He is agreeable to this plan. Imaging Data Venous US: Attestation: I have reviewed the pertinent imaging results. Radiologist's impression: Normal right lower extremity venous ultrasound, no sign of deep venous thrombosis. Dictated by Tez Duke MD @ 04/13/2024 11:16:21 PM Discharge Plan Discharge Clinical Impression: Leg pain, right Patient Disposition: Home, Self-Care Condition: Stable Instructions: Leg Pain (ED) Additional Instructions: I cannot say exactly what is causing your pain at this time but I do not see any emergent issues currently. If symptoms do persist follow-up with your primary care provider. Return to emergency department for new or worsening symptoms. Prescriptions: No Action triamterene-hydrochlorothiazid 37.5-25 mg capsule 1 cap PO QDAY Qty: 90 3RF rosuvastatin 5 mg tablet 5 mg PO QDAY Qty: 90 3RF omeprazole 20 mg capsule,delayed release(DR/EC) 20 mg PO QDAY Qty: 90 3RF lisinopril 10 mg tablet 10 mg PO QDAY Qty: 90 3RF sucralfate 1 gram tablet 1 g PO BID Qty: 180 3RF sildenafil 25 mg tablet 25 mg PO QDAY PRN Rx Instructions: administer 30 minutes to 4 hours before activity Follow Up/Referrals: Tonya Pradhan MD [Primary Care Provider] - Stand Alone Forms: [email or web address] Info Instructions
--- OUTSIDE RECORDS SUMMARY | 2024-04-13 22:35 | XMS_ITS | Encounter Summary ---
Author Organization [facility] Address [address] [place] [address]. [place] [address] Care Team Providers Care Peer Educator Name Role Phone Mikhail Cervantes Primary Care Provider Alec Lo MD Unavailable [phone] Encounter Details Date Type Department Care Team (Late st Contact Info) Description 06/11/2010 12:55 PM CDT [facility] in [address] [phone] Jeremías Prado MD [address] [place] [address] Social History Tobacco Use Types Packs/Day Years Used Date Smoking Tobacco: Never Smokeless Tobacco: Never Alcohol Use Standard Drinks/Week Comments Yes 0 (1 standard drink = 0.6 oz pur e alcohol) occ glass wine Sex and Gender Information Value Date Recorded Sex Assigned at Male 06/16/2020 9:59 AM CDT 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 Gender Identity Male 06/16/2020 9:59 AM CDT Sexual Orientation Not on file documented as of this encounter Plan of Treatment Upcoming Encounters Date Type Department Care Team (Late st Contact Info) Description 05/24/2024 1:30 PM CDT Virtual Visit [facility] [address] 4th [place] [address] Heber Trejo MD [address] [place] [address] documented as of this encounter Procedures Procedure Name Priority Date/Time Associated Diagnosis Comments SURGICAL PATHOLOGY EXAM Routine 06/11/2010 1:00 PM CDT documented in this encounter Results * Surgical pathology exam (06/11/2010 1:00 PM CDT) Copath Report Patient Name: BOB GALVEZ MR#: [id number] Specimen #: [id number] Collected: 06/11/2010 Received: 06/11/2010 [...] Raghavendra Kebede MD/aby 06/13/2010 TESTING LAB LOCATION: [address] [place] [address] COLLECTION SITE: Client: [facility] Location: END (W) COPATH 06/11/2010 1:00 PM CDT 06/11/2010 4:22 PM CDT Jeremías DAVIS - KATHLEEN osorio COPATH documented in this encounter Visit Diagnoses Not on filedocumented in this encounter Care Teams Peer Educator Relationship Specialty Start Date End Date Mikhail Cervantes PCP - General 08/29/04 04/13/15 Alec Johnson MD [address] [place] [address] PCP - Surgery Surgery 06/01/10 01/24/14 documented as of this encounter
--- OUTSIDE RECORDS SUMMARY | 2024-04-13 22:35 | XMS_ITS | Encounter Summary ---
Author Organization [facility] Address [address] [place] [address] Care Team Providers Care In Flight Refueling Operator Name Role Phone Lori Wyatt MD Primary Care Provider [phone] Bennett Morse MD Unavailable Adelaida Winter MD Unavailable Unav ailable Heber Trejo MD Unavailable [phone] Kamila Boggs RN Unavailable [phone] Lori Wyatt MD Unavailable Heber Trejo MD Unavailable Tammy Maier CNP Unavailable Polly Wylie PA-C Unavailable Encounter Details Date Type Department Care Team (Late st Contact Info) Description 10/16/2017 [facility] [facility] [address] [address] Weight, Heber Campbell MD [address] [place] [address] Social History Tobacco Use Types Packs/Day Years Used Date Smoking Tobacco: Never Smokeless Tobacco: Never Alcohol Use Standard Drinks/Week Comments Yes 0 (1 standard drink = 0.6 oz pur e alcohol) occ glass wine Sex and Gender Information Value Date Recorded Sex Assigned at Male 06/16/2020 9:59 AM CDT 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 Gender Identity Male 06/16/2020 9:59 AM CDT Sexual Orientation Not on file documented as of this encounter Plan of Treatment Upcoming Encounters Date Type Department Care Team (Late st Contact Info) Description 05/24/2024 1:30 PM CDT Virtual Visit [facility] [address] 4th [place] [address] Heber Trejo MD 420 [facility] [address] [place] [address] documented as of this encounter Visit Diagnoses Not on filedocumented in this encounter Care Teams In Flight Refueling Operator Relationship Specialty Start Date End Date Lori Wyatt MD [facility] [address] [place] [address] PCP - General Internal Medicine 04/14/15 Bennett Morse MD [facility] [address] [address] Urology 04/14/15 Adelaida Winter MD [facility] [address] [address] Urology 06/28/15 Heber Trejo MD [address] [place] [address] [address] [place] [address] Urology 09/07/15 Kamila Boggs, RN Registered Nurse Urology 09/07/15 09/10/22 Lori Wyatt MD [facility] [address] [place] [address] Referring Physician Internal Medicine 09/07/15 Heber Trejo MD 420 [facility] [address] [place], [place] [address] Assigned Surgical Provider 12/17/19 11/15/22 Tammy Maier CNP [address] [place], [place] [address] Assigned Surgical Provider 11/16/22 05/16/23 Polly Wylie PA-C [address] [place] [address] Assigned Surgical Provider 05/17/23 documented as of this encounter
--- OUTSIDE RECORDS SUMMARY | 2024-04-13 22:35 | XMS_ITS | Encounter Summary ---
Author Organization [facility] Address [address] [place] [address] Care Team Providers Care Fisheries Inspector Name Role Phone Lori Wyatt MD Primary Care Provider Bennett Morse MD Unavailable Adelaida Winter MD Unavailable Unav ailable Heber Trejo MD Unavailable [phone] Kamila Boggs RN Unavailable [phone] Lori Wyatt MD Unavailable Heber Trejo MD Unavailable Tammy Maier CNP Unavailable Polly Wylie PA-C Unavailable [phone] Encounter Details Date Type Department Care Team (Late st Contact Info) Description 01/25/2017 [facility] [address] [facility] SE 4th [place] [address] Heber Trejo MD [address] [facility] [address] [place] [address] Social History Tobacco Use Types Packs/Day Years Used Date Smoking Tobacco: Never Smokeless Tobacco: Never Alcohol Use Standard Drinks/Week Comments Yes 0 (1 standard drink = 0.6 oz pur e alcohol) occ glass wine Sex and Gender Information Value Date Recorded Sex Assigned at Male 06/16/2020 9:59 AM CDT 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 Gender Identity Male 06/16/2020 9:59 AM CDT Sexual Orientation Not on file documented as of this encounter Plan of Treatment Upcoming Encounters Date Type Department Care Team (Late st Contact Info) Description 05/24/2024 1:30 PM CDT Virtual Visit [facility] [address] 4th [place] [address] Heber Trejo MD [address] [place] [address] [address] [place] [address] documented as of this encounter Visit Diagnoses Not on filedocumented in this encounter Care Teams Fisheries Inspector Relationship Specialty Start Date End Date oLri Wyatt MD [facility] [address] [place] [address] PCP - General Internal Medicine 04/14/15 Bennett Morse MD [facility] [address] [address] Urology 04/14/15 Adelaida Winter MD [facility] [address] [address] Urology 06/28/15 Heber Trejo MD [address] [place] [address] [address] [place] [address] Urology 09/07/15 Kamila Boggs, RN Registered Nurse Urology 09/07/15 09/10/22 Lori Wyatt MD [facility] [address] [place] [address] Referring Physician Internal Medicine 09/07/15 Heber Trejo MD 420 [facility] [address] [place] [address] Assigned Surgical Provider 12/17/19 11/15/22 Tammy Maier CNP [address] [place] [address] Assigned Surgical Provider 11/16/22 05/16/23 Polly Wylie PA-C [address] [place] [address] Assigned Surgical Provider 05/17/23 documented as of this encounter
--- OUTSIDE RECORDS SUMMARY | 2024-04-13 22:35 | XMS_ITS | Encounter Summary ---
Author Organization [facility] Address [address] [place] [address] Care Team Providers Care Technical Assistance Consultant Name Role Phone Lori Wyatt MD Primary Care Provider Bennett Morse MD Unavailable [phone] Adelaida Winter MD Unavailable Unav ailable Heber Trejo MD Unavailable [phone] Kamila Boggs RN Unavailable [phone] Lori Wyatt MD Unavailable [phone] Heber Trejo MD Unavailable Tammy Maier CNP Unavailable [phone] Polly Wylie PA-C Unavailable Encounter Details Date Type Department Care Team (Late st Contact Info) Description 09/28/2018 [facility] and [facility] [address] [facility] [address] 4th [place] [address] Heber Trejo MD [address] [place] [address] [facility] [address] [place] [address] Social History Tobacco Use Types Packs/Day Years Used Date Smoking Tobacco: Never Smokeless Tobacco: Never Alcohol Use Standard Drinks/Week Comments Yes 0 (1 standard drink = 0.6 oz pur e alcohol) occ glass wine Sex and Gender Information Value Date Recorded Sex Assigned at Male 06/16/2020 9:59 AM CDT 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 Gender Identity Male 06/16/2020 9:59 AM CDT Sexual Orientation Not on file documented as of this encounter Plan of Treatment Upcoming Encounters Date Type Department Care Team (Late st Contact Info) Description 05/24/2024 1:30 PM CDT Virtual Visit [facility] [address] 4th [place] [address] Heber Trejo MD [address] [place] [address] [address] [place] [address] documented as of this encounter Visit Diagnoses Not on filedocumented in this encounter Care Teams Technical Assistance Consultant Relationship Specialty Start Date End Date Lori Wyatt MD [facility] [address] [place] [address] PCP - General Internal Medicine 04/14/15 Bennett Morse MD [facility] [address] [address] Urology 04/14/15 Adelaida Winter MD [facility] [address] [address] Urology 06/28/15 Heber Trejo MD [address] [place] [address] [address] [place] [address] Urology 09/07/15 Kamila Boggs, RN Registered Nurse Urology 09/07/15 09/10/22 Lori Wyatt MD [facility] [address] [place] [address] Referring Physician Internal Medicine 09/07/15 Heber Trejo MD 420 [facility] [address] [place] [address] Assigned Surgical Provider 12/17/19 11/15/22 Tammy Maier CNP [address] [address] Assigned Surgical Provider 11/16/22 05/16/23 Polly Wylie PA-C [address] [place] [address] Assigned Surgical Provider 05/17/23 documented as of this encounter
--- OUTSIDE RECORDS SUMMARY | 2024-04-13 22:35 | XMS_ITS | Encounter Summary ---
Author Organization [place] Address [address] [place] [address] Care Team Providers Care Traveling Passenger Agent Name Role Phone Lori Wyatt MD Primary Care Provider Bennett Morse MD Unavailable Adelaida Winter MD Unavailable Unav ailable Heber Trejo MD Unavailable [phone] Kamila Boggs RN Unavailable [phone] Lori Wyatt MD Unavailable Heber Trejo MD Unavailable Tammy Maier CNP Unavailable [phone] Polly Wylie PA-C Unavailable [phone] Encounter Details Date Type Department Care Team (Late st Contact Info) Description 02/25/2017 [facility] Urology and [facility] [address] [facility] [facility] [address] 4th [place] [address] Heber Trejo MD [address] [facility] [address] [place] [address] Social History Tobacco Use Types Packs/Day Years Used Date Smoking Tobacco: Never Smokeless Tobacco: Never Alcohol Use Standard Drinks/Week Comments Yes 0 (1 standard drink = 0.6 oz pur e alcohol) occ glass wine Sex and Gender Information Value Date Recorded Sex Assigned at Male 06/16/2020 9:59 AM CDT 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 Gender Identity Male 06/16/2020 9:59 AM CDT Sexual Orientation Not on file documented as of this encounter Plan of Treatment Upcoming Encounters Date Type Department Care Team (Late st Contact Info) Description 05/24/2024 1:30 PM CDT Virtual Visit [facility] Clinic [address] 4th [place] [address] Heber Trejo MD [address] [place] [address] [address] [place] [address] documented as of this encounter Visit Diagnoses Not on filedocumented in this encounter Care Teams Traveling Passenger Agent Relationship Specialty Start Date End Date Lori Wyatt MD [facility] [address] [place] [address] PCP - General Internal Medicine 04/14/15 Bennett Morse MD [facility] [address] [address] Urology 04/14/15 Adelaida Winter MD [facility] [address] [address] Urology 06/28/15 Heber Trejo MD [address] [place] [address] 394 [place] [address] Urology 09/07/15 Kamila Boggs, RN Registered Nurse Urology 09/07/15 09/10/22 Lori Wyatt MD [facility] [address] [place] [address] Referring Physician Internal Medicine 09/07/15 Heber Trejo MD [address] [facility] [address] [place] [address] Assigned Surgical Provider 12/17/19 11/15/22 Tammy Maier CNP [address] [place] [address] Assigned Surgical Provider 11/16/22 05/16/23 Polly Wylie PA-C [address] [place] [address] Assigned Surgical Provider 05/17/23 documented as of this encounter
--- OUTSIDE RECORDS SUMMARY | 2024-04-13 22:36 | XMS_ITS | Encounter Summary ---
Author Organization [place] Address [address] [place] [address] Care Team Providers Care Motor Builder Winder Name Role Phone Lori Wyatt MD Primary Care Provider Bennett Morse MD Unavailable [phone] Adelaida Winter MD Unavailable Unav ailable Heber Trejo MD Unavailable [phone] Kamila Boggs RN Unavailable [phone] Lori Wyatt MD Unavailable Heber Trejo MD Unavailable Tammy Maier CNP Unavailable Polly Wylie PA-C Unavailable [phone] Encounter Details Date Type Department Care Team (Late st Contact Info) Description 08/22/2015 [facility] Medical Advice [facility] Urology and [facility] [address] 4th [place] [address] Heber Trejo MD [address] [facility] [address] [place] [address] Social History Tobacco Use Types Packs/Day Years Used Date Smoking Tobacco: Never Smokeless Tobacco: Never Alcohol Use Standard Drinks/Week Comments Yes 0 (1 standard drink = 0.6 oz pur e alcohol) occ glass wine Sex and Gender Information Value Date Recorded Sex Assigned at Male 06/16/2020 9:59 AM CDT 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 Clinic [address] 4th [place] [address] Heber Trejo MD [address] [place] [address] 394 [place] [address] documented as of this encounter Visit Diagnoses Not on filedocumented in this encounter Care Teams Motor Builder Winder Relationship Specialty Start Date End Date Lori Wyatt MD [facility] [address] [place] [address] PCP - General Internal Medicine 04/14/15 Bennett Morse MD [facility] [address] [address] Urology 04/14/15 Adelaida Winter MD [facility] [address] [address] Urology 06/28/15 Heber Trejo MD [address] [place] [address] 394 [place] [address] Urology 09/07/15 Kamila Boggs, RN Registered Nurse Urology 09/07/15 09/10/22 Lori Wyatt MD [facility] [address] [place] [address] Referring Physician Internal Medicine 09/07/15 Heber Trejo MD 420 [facility] 394 [place] [address] Assigned Surgical Provider 12/17/19 11/15/22 Tammy Maier CNP [address] [place] [address] Assigned Surgical Provider 11/16/22 05/16/23 Polly Wylie PA-C [address] [place] [address] Assigned Surgical Provider 05/17/23 documented as of this encounter
--- OUTSIDE RECORDS SUMMARY | 2024-04-13 22:36 | XMS_ITS | Encounter Summary ---
Author Organization [place] Address [address] [place] [address] Care Team Providers Care Pile Operator Name Role Phone Eric Cervantes Primary Care Provider Dayne ramirez Encounter Details Date Type Department Care Team (Late Contact Info) Description 01/22/2010 2:25 PM [facility] [place] [address] [place] [phone] Mau Dobbs MD [facility] [address] [place] [address] [address] [place] [address] Social History Tobacco Use Types Packs/Day Years Used Date Smoking Tobacco: Never Smokeless Tobacco: Never Alcohol Use Standard Drinks/Week Comments Yes 0 (1 standard drink = 0.6 oz pur e alcohol) occ glass wine Sex and Gender Information Value Date Recorded Sex Assigned at Male 06/16/2020 9:59 AM CDT 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 Gender Identity Male 06/16/2020 9:59 AM CDT Sexual Orientation Not on file documented as of this encounter Plan of Treatment Upcoming Encounters Date Type Department Care Team (Late Contact Info) Description 05/24/2024 1:30 PM CDT Virtual Visit [facility] Urology Clinic [place] [address] [facility] [address] 4th [place] [address] Heber Trejo MD [address] [place] [address] [address] [place] [address] documented as of this encounter Visit Diagnoses Not on filedocumented in this encounter Care Teams Pile Operator Relationship Specialty Start Date End Date Eric Cervantes PCP - General 08/29/04 04/13/15 documented as of this encounter
--- OUTSIDE RECORDS SUMMARY | 2024-04-13 22:36 | XMS_ITS | Clinical Summary ---
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
--- OUTSIDE RECORDS SUMMARY | 2024-04-13 22:36 | XMS_ITS | Continuity of Care Document ---
Author Name [facility] Organization [facility] Care Team Providers Care Curator Of Collections Name Role Phone [facility] Unavailable Unavailable Problems Combined list of problems from Department [facility] and [facility] facilities. It does not include entries that were removed or entered in error. Problem Status Onset Date Problem Type Date of Resolution Comments Source GERD - Gastro-Esophageal Reflux Disease ([facility] [id number]) Active Condition [facility] HTN - Hypertension ([facility] [id number]) Active Condition [facility] Hyperlipidemia ([facility] [id number]) Active Condition [facility] Prostate carcinoma Active Condition 2023 Entered By: SAUL NGUYEN Comment: s/p prostate removal. 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 [facility] Right knee pain Active Condition [facility] Diagnosis: ICD-10-CM M17.31 Unilateral post-traumatic osteoarthritis, right knee Active Diagnosis [facility] Diagnosis: ICD-10-CM M25.561 Pain in right knee Active Diagnosis [facility] Medications Combined list of outpatient medications from [facility] and [facility] facilities.Medications provided include 1) outpatient medications from the last 15 months, and 2) patient-reported medications. Medication Details Route Status Patient Instructions Prescription Expires Prescription Number Last Dispense Date Ordering Provider Order Date Order Qty Source DICLOFENAC NA 1% GEL,TOP APPLY 4 GRAMS TOPICALL Y FOUR TIMES A DAY NEEDED TO KNEES FOR ARTHRITI S PAIN TOPICA L ACTIVE 08/12/2024 [id number] 4 Brenna UMANA NDREW L 2023 300 [facility] HYDROCHLORO THIAZIDE 50MG/TRIAMT ERENE 75MG TAB TAKE ONE TABLET BY MOUTH ORAL ACTIVE NGUYEN,ER ICA C 2023 [facility] LISINOPRIL 10MG TAB TAKE ONE TABLET BY MOUTH ORAL ACTIVE NGUYEN,ER ICA C 2023 [facility] OMEPRAZOLE 20MG CAP,EC TAKE 1 CAPSULE BY MOUTH EVERY DAY ORAL ACTIVE NGUYEN,ER ICA C 2023 [facility] ROSUVASTATI N CA 5MG TAB TAKE ONE TABLET BY MOUTH ORAL ACTIVE NGUYEN,ER ICA C 2023 [facility] SILDENAFIL CITRATE 100MG TAB TAKE ONE TABLET BY MOUTH ONCE NEEDED FOR ERECTILE DYSFUNCT ION - TRIAL WITH JUST 1/2 TABLET (50MG) AND MONITOR FOR EFFECTIV ENESS - ORAL ACTIVE 07/28/2024 [id number] 5 NGUYEN,ER ICA C 2023 18 [facility] SILDENAFIL TAB TAKE 20MG BY MOUTH THREE TIMES A DAY ORAL ACTIVE NGUYEN,ER ICA C 2023 [facility] SUCRALFATE 1GM TAB TAKE ONE TABLET BY MOUTH TWICE A DAY ORAL ACTIVE NGUYEN,ER ICA C 2023 [facility] Immunizations Combined list of available immunizations from the Department of Defense and Veterans Affairs facilities. Immunization Series Date Given Administered By Site Reaction Lot Number CVX Code Drug Wedding Photographer Status Comments Source COVID-19 (PFIZER), MRNA, LNP-S, PF, NITA-SUCROSE, 30 MCG/0.3 ML (AGES 12+ YEARS) 2023 YOLIS VILLAFUERTE LEFT DELTO ID [id number] 309 complet ed [facility] TDAP 2023 YOLIS VILLAFUERTE RIGHT DELTO ID [id number] 115 complet ed [facility] RSV, RECOMBINANT, PROTEIN SUBUNIT RSVPREF, ADJUVANT RECONSTITUTED , 0.5 ML, PF 2022 303 complet ed [facility] COVID-19 (PFIZER), MRNA, LNP-S, PF, NITA-SUCROSE, 30 MCG/0.3 ML (AGES 12+ YEARS) 2022 309 complet ed [facility] INFLUENZA VACCINE, QUADRIVALENT, ADJUVANTED 2022 205 complet ed [facility] COVID-19 (MODERNA), MRNA, LNP-S, BIVALENT, PF, 50 MCG/0.5 ML OR 25MCG/0.25 ML DOSE 2021 229 complet ed [facility] INFLUENZA VACCINE, QUADRIVALENT, ADJUVANTED 2021 205 complet ed [facility] COVID-19 (PFIZER), MRNA, LNP-S, PF, 30 MCG/0.3 ML DOSE 2021 208 complet [facility] INFLUENZA VACCINE, QUADRIVALENT, ADJUVANTED 2020 205 complet ed [facility] COVID-19 (PFIZER), MRNA, LNP-S, PF, 30 MCG/0.3 ML DOSE 2020 208 complet ed [facility] COVID-19 (PFIZER), MRNA, LNP-S, PF, 30 MCG/0.3 ML DOSE 2 2020 208 complet ed PFR; [id number]; 1 [facility] COVID-19 ([employer]), MRNA, LNP-S, PF, 30 MCG/0.3 ML DOSE 1 2020 208 complet ed PFR; [id number]; 1 [facility] ZOSTER RECOMBINANT 2019 187 complet [facility] INFLUENZA VACCINE, QUADRIVALENT, ADJUVANTED 2019 205 complet ed [facility] ZOSTER RECOMBINANT 2019 187 complet [facility] INFLUENZA, TRIVALENT, ADJUVANTED 2018 168 complet [facility] INFLUENZA, INJECTABLE, QUADRIVALENT, PRESERVATIVE FREE 2018 150 complet [facility] INFLUENZA, HIGH DOSE SEASONAL 2017 135 complet [facility] INFLUENZA, HIGH DOSE SEASONAL 2016 135 complet [facility] INFLUENZA, INJECTABLE, QUADRIVALENT, PRESERVATIVE FREE 2015 150 complet [facility] INFLUENZA, HIGH DOSE SEASONAL 2014 135 complet [facility] PNEUMOCOCCAL CONJUGATE PCV 13 2014 133 complet [facility] INFLUENZA, HIGH DOSE SEASONAL 2013 135 complet [facility] TDAP 2013 115 complet [facility] TD (ADULT), 5 LF TETANUS TOXOID, PRESERVATIVE FREE, ADSORBED 2013 113 complet [facility] INFLUENZA, SEASONAL, INJECTABLE 2012 141 complet [facility] PNEUMOCOCCAL POLYSACCHARID E PPV23 2011 33 complet ed [facility] CZECH ENCEPHALITIS IM 2010 134 complet ed [facility] CZECH ENCEPHALITIS IM 2010 134 complet ed [facility] TYPHOID, VICPS 2010 101 complet ed [facility] INFLUENZA, UNSPECIFIED FORMULATION 2010 88 complet ed [facility] INFLUENZA, SEASONAL, INJECTABLE, PRESERVATIVE FREE 2009 140 complet ed [facility] INFLUENZA, INJECTABLE, QUADRIVALENT, PRESERVATIVE FREE 2008 150 complet ed [facility] NOVEL INFLUENZA-H1N 1-09, ALL FORMULATIONS 2008 128 complet ed [facility] HEP B, ADULT 2003 43 complet ed [facility] HEP A, ADULT 2002 52 complet ed [facility] HEP B, ADULT 2002 43 complet ed [facility] HEP B, ADULT 2002 43 complet ed [facility] HEP A, ADULT 2001 52 complet ed [facility] Vital Signs Combined list of inpatient and outpatient Vital Signs from Department of Defense and Veterans Affairs, ranging from 12 months to all on record, depending upon the facility. Vital Sign Value Date Comments Source SYSTOLIC BLOOD PRESSURE 142 07/24/2023 11:13:55 [facility] DIASTOLIC BLOOD PRESSURE 85 07/24/2023 11:13:55 [facility] PULSE OXIMETRY 95 07/24/2023 11:13:55 [facility] WEIGHT 228.8 07/24/2023 11:13:55 [facility] BMI 31 kg/m2 07/24/2023 11:13:55 [facility] PAIN 2 07/24/2023 11:13:55 [facility] HEIGHT 72.5 07/24/2023 11:13:55 [facility] TEMPERATURE 97.1 07/24/2023 11:13:55 [facility] PULSE 66 07/24/2023 11:13:55 [facility] RESPIRATION 16 07/24/2023 11:13:55 [facility] Encounters Combined list of: 1) Encounters from Department of Veterans Affairs facilities going backup to the last 18 months, not all OR inpatient encounters are included; 2) Encounters from the Department of [facility] facilities going backup to 280 months. Location Location Details Encounter Type Encounter Number Reason For Visit Attending Provider ADM Date DC Date Status Disposition Source [facility] Outpatient Encounter [id number] 11/12 [facility] Outpatient Encounter [id number] 12/10 [facility] IS [facility] OFFICE O/P [place] 60 MIN [id number] Diagnos is: ICD-10- CM M25.561 Pain in right knee MISTY NGUYEN C 07/23 [facility] IS [facility] Outpatient Encounter [id number] 08/03 [facility] IS [facility] OFF/OP CNSLTJ NEW/EST MOD 40 [id number] Diagnos is: ICD-10- CM M17.31 Unilate ral post-tr aumatic osteoar thritis , right knee ZUMBACH,AN LUIZA L 08/11 [facility] IS [facility] Outpatient Encounter [id number] 08/11 [facility] Social History Combined list of available smoking, tobacco, and other social history from Department of Defense and Veterans Affairs facilities. Social History Type Response Date Comment Sourc e Tobacco smoking status [facility] NEVER USED 07/24/2023 [facility]
--- OUTSIDE RECORDS SUMMARY | 2024-04-13 22:36 | XMS_ITS | Encounter Summary ---
Author Organization [place] Address [address] [place] [address] Care Team Providers Care Quality Assurance Lead Name Role Phone Lori Wyatt MD Primary Care Provider [phone] Bennett Morse MD Unavailable Adelaida Winter MD Unavailable Unav ailable Heber Trejo MD Unavailable [phone] Kamila Boggs RN Unavailable [phone] Lori Wyatt MD Unavailable Heber Trejo MD Unavailable Tammy Maier CNP Unavailable [phone] Polly Wylie PA-C Unavailable Encounter Details Date Type Department Care Team (Late st Contact Info) Description 01/25/2016 [facility] Urology and [facility] [address] [facility] [address] 4th [place] [address] Heber Trejo MD [address] [facility] [address] [place] [address] Social History Tobacco Use Types Packs/Day Years Used Date Smoking Tobacco: Never Smokeless Tobacco: Never Alcohol Use Standard Drinks/Week Comments Yes 0 (1 standard drink = 0.6 oz pur e alcohol) occ glass wine Sex and Gender Information Value Date Recorded Sex Assigned at Male 06/16/2020 9:59 AM CDT 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 Gender Identity Male 06/16/2020 9:59 AM CDT Sexual Orientation Not on file documented as of this encounter Plan of Treatment Upcoming Encounters Date Type Department Care Team (Late st Contact Info) Description 05/24/2024 1:30 PM CDT Virtual Visit [facility] U[facility] Clinic [address] 4th [place] [address] Heber Trejo MD [address] [place] [address] [address] [place] [address] documented as of this encounter Visit Diagnoses Not on filedocumented in this encounter Care Teams Quality Assurance Lead Relationship Specialty Start Date End Date Lori Wyatt MD [facility] [address] [place] [address] PCP - General Internal Medicine 04/14/15 Bennett Morse MD [facility] [address] [address] Urology 04/14/15 Adelaida Winter MD [facility] [address] [address] Urology 06/28/15 Heber Trejo MD [address] [place] [address] [address] [place] [address] Urology 09/07/15 Kamila Boggs, RN Registered Nurse Urology 09/07/15 09/10/22 Lori Wyatt MD [facility] [address] [place] [address] Referring Physician Internal Medicine 09/07/15 Heber Trejo MD 420 [facility] [address] [place] [address] Assigned Surgical Provider 12/17/19 11/15/22 Tammy Maier CNP [address] [place] [address] Assigned Surgical Provider 11/16/22 05/16/23 Polly Wylie PA-C [address] [place] [address] Assigned Surgical Provider 05/17/23 documented as of this encounter
--- OUTSIDE RECORDS SUMMARY | 2024-04-13 22:36 | XMS_ITS | Encounter Summary ---
Author Organization [place] Address [address] [place] [address]. [place] [address] Care Team Providers Care Fruit Peeler Name Role Phone Lori Wyatt MD Primary Care Provider [phone] Bennett Morse MD Unavailable Adelaida Winter MD Unavailable Unav ailable Heber Trejo MD Unavailable [phone] Lori Wyatt MD Unavailable Polly Wylie PA-C Unavailable Encounter Details Date Type Department Care Team (Late st Contact Info) Description 07/24/2023 [facility] Medical Advice [facility] Urology Clinic [place] [address] 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 Gender Identity Male 06/16/2020 9:59 AM CDT Sexual Orientation Not on file documented as of this encounter Plan of Treatment Upcoming Encounters Date Type Department Care Team (Late st Contact Info) Description 05/24/2024 1:30 PM CDT Virtual Visit [facility] Urology Clinic [address] 4th [place] [address] Heber Trejo MD [address] [address] documented as of this encounter Visit Diagnoses Not on filedocumented in this encounter Additional Health Concerns Assessment Noted Time PHQ-9 Depression Total Score: 1 11/03/19 11:41 AM CDT documented as of this encounter Care Teams Fruit Peeler Relationship Specialty Start Date End Date Lori Wyatt MD [address] [address] PCP - General Internal Medicine 04/14/15 Bennett Morse MD [facility] [address] [address] Urology 04/14/15 Adelaida Winter MD [facility] [address] [address] Urology 06/28/15 Heber Trejo MD [address] [place] [address] Urology 09/07/15 Lori Wyatt MD [facility] [address] [place] [address] Referring Physician Internal Medicine 09/07/15 Polly Wylie PA-C [address] [place] [address] Assigned Surgical Provider 05/17/23 documented as of this encounter
--- OUTSIDE RECORDS SUMMARY | 2024-04-13 22:36 | XMS_ITS | Encounter Summary ---
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 Gender Identity Male 06/16/2020 9:59 AM CDT Sexual Orientation Not on file documented as of this encounter Plan of Treatment Upcoming Encounters Date Type Department Care Team (Late st Contact Info) Description 05/24/2024 1:30 PM CDT Virtual Visit [facility] [address] [address] Heber Trejo MD [address] [facility] [address] [place] [address] documented as of this encounter Visit Diagnoses Not on filedocumented in this encounter Additional Health Concerns Assessment Noted Time PHQ-9 Depression Total Score: 1 11/03/19 19 11:41 AM CDT documented as of this encounter Care Teams Press Clippings Cutter And Paster Relationship Specialty Start Date End Date Lori Wyatt MD [facility] [address] [place] [address] PCP - General Internal Medicine 04/14/15 Bennett Morse MD [facility] [address] [place] [address] Urology 04/14/15 Adelaida Winter MD [facility] [address] [place] [address] Urology 06/28/15 Heber Trejo MD [address] [address] Urology 09/07/15 Lori Wyatt MD [facility] [address] [place] [address] Referring Physician Internal Medicine 09/07/15 Polly Wylie PA-C [address] [place] [address] Assigned Surgical Provider 05/17/23 documented as of this encounter
--- OUTSIDE RECORDS SUMMARY | 2024-04-13 22:36 | XMS_ITS | Encounter Summary ---
Author Organization [facility] Address [address] [place] [address] Care Team Providers Care Optical Mechanic Name Role Phone Lori Wyatt MD Primary Care Provider Bennett Morse MD Unavailable Adelaida Winter MD Unavailable Unav ailable Heber Trejo MD Unavailable [phone] Kamila Boggs RN Unavailable [phone] Lori Wyatt MD Unavailable Heber Trejo MD Unavailable Tammy Maier CNP Unavailable Polly Wylie PA-C Unavailable [phone] Encounter Details Date Type Department Care Team (Late st Contact Info) Description 10/17/2016 [facility] and [facility] [address] [facility] [address] 4th [place] [address] Heber Trejo MD [address] [facility] [address] [place] [address] Social History Tobacco Use Types Packs/Day Years Used Date Smoking Tobacco: Never Smokeless Tobacco: Never Alcohol Use Standard Drinks/Week Comments Yes 0 (1 standard drink = 0.6 oz pur e alcohol) occ glass wine Sex and Gender Information Value Date Recorded Sex Assigned at Male 06/16/2020 9:59 AM CDT 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 Gender Identity Male 06/16/2020 9:59 AM CDT Sexual Orientation Not on file documented as of this encounter Plan of Treatment Upcoming Encounters Date Type Department Care Team (Late st Contact Info) Description 05/24/2024 1:30 PM CDT Virtual Visit [facility] [address] 4th [place] [address] Heber Trejo MD [address] [place] [address] [address] [place] [address] documented as of this encounter Visit Diagnoses Not on filedocumented in this encounter Care Teams Optical Mechanic Relationship Specialty Start Date End Date Lori Wyatt MD [facility] [address] [place] [address] PCP - General Internal Medicine 04/14/15 Bennett Morse MD [facility] [address] [address] Urology 04/14/15 Adelaida Winter MD [facility] [address] [address] Urology 06/28/15 Heber Trejo MD [address] [place] [address] 394 [place] [address] Urology 09/07/15 Kamila Boggs, RN Registered Nurse Urology 09/07/15 09/10/22 Lori Wyatt MD [facility] [address] [place] [address] Referring Physician Internal Medicine 09/07/15 Heber Trejo MD [address] [facility] [address] [place] [address] Assigned Surgical Provider 12/17/19 11/15/22 Tammy Maier CNP [address] [place] [address] Assigned Surgical Provider 11/16/22 05/16/23 Polly Wylie PA-C [address] [place] [address] Assigned Surgical Provider 05/17/23 documented as of this encounter
--- OUTSIDE RECORDS SUMMARY | 2024-04-13 22:36 | XMS_ITS | Encounter Summary ---
Author Organization [facility] Address [address] [place] [address] Care Team Providers Care Rabbler Name Role Phone Lori Wyatt MD Primary Care Provider Bennett Morse MD Unavailable [phone] Adelaida Winter MD Unavailable Unav ailable Heber Trejo MD Unavailable [phone] Kamila Boggs RN Unavailable [phone] Lori Wyatt MD Unavailable Heber Trejo MD Unavailable [phone] Tammy Maier CNP Unavailable [phone] Polly Wylie PA-C Unavailable [phone] Encounter Details Date Type Department Care Team (Late st Contact Info) Description 08/26/2015 [facility] and [facility] [address] [facility] [address] [place] [address] Adelaida Winter MD INACTIVE IN [place] OF 06/23/2020 Social History Tobacco Use Types Packs/Day Years Used Date Smoking Tobacco: Never Smokeless Tobacco: Never Alcohol Use Standard Drinks/Week Comments Yes 0 (1 standard drink = 0.6 oz pur e alcohol) occ glass wine Sex and Gender Information Value Date Recorded Sex Assigned at Male 06/16/2020 9:59 AM CDT 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 Gender Identity Male 06/16/2020 9:59 AM CDT Sexual Orientation Not on file documented as of this encounter Plan of Treatment Upcoming Encounters Date Type Department Care Team (Late st Contact Info) Description 05/24/2024 1:30 PM CDT Virtual Visit [facility] [address] 4th [place] [address] Heber Trejo MD [address] [place] [address] [address] [place] [address] documented as of this encounter Visit Diagnoses Not on filedocumented in this encounter Care Teams Rabbler Relationship Specialty Start Date End Date Lori Wyatt MD [address] [address] PCP - General Internal Medicine 04/14/15 Bennett Morse MD [facility] [address] [place] [address] Urology 04/14/15 Adelaida Winter MD [facility] [address] [address] Urology 06/28/15 Heber Trejo MD [address] [place] [address] 394 [place] [address] Urology 09/07/15 Kamila Boggs, RN Registered Nurse Urology 09/07/15 09/10/22 Lori Wyatt MD [facility] [address] [place] [address] Referring Physician Internal Medicine 09/07/15 Heber Trejo MD 420 [facility] [address] [place] [address] Assigned Surgical Provider 12/17/19 11/15/22 Tammy Maier CNP [address] [place] [address] Assigned Surgical Provider 11/16/22 05/16/23 Polly Wylie PA-C [address] [place] [address] Assigned Surgical Provider 05/17/23 documented as of this encounter
--- OUTSIDE RECORDS SUMMARY | 2024-04-13 22:36 | XMS_ITS | Encounter Summary ---
Author Organization [facility] Address [address] [place] [address]. [place] [address] Care Team Providers Care Electrical Accessories I Assembler Name Role Phone Lori Wyatt MD Primary Care Provider Bennett Morse MD Unavailable Adelaida Winter MD Unavailable Unav ailable Heber Trejo MD Unavailable [phone] Kamila Boggs RN Unavailable [phone] Lori Wyatt MD Unavailable [phone] Heber Trejo MD Unavailable Tammy Maier CNP Unavailable Polly Wylie PA-C Unavailable Encounter Details Date Type Department Care Team (Late st Contact Info) Description 04/09/2022 [facility] [place] [id number] [facility] [address] 4th [place] [address] Heber Trejo MD [address] [facility] [address] [place] [address] Social History Tobacco Use Types [...] AM CDT 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 No / Unsure 04/12/2022 11:07 AM CRULLER MAKER documented as of this encounter Plan of Treatment Upcoming Encounters Date Type Department Care Team (Late st Contact Info) Description 05/24/2024 1:30 PM CDT Virtual Visit [facility] Clinic [address] 4th [place] [address] Heber Trejo MD [address] [place] [address] documented as of this encounter Visit Diagnoses Not on filedocumented in this encounter Additional Health Concerns Assessment Noted Time PHQ-9 Depression Total Score: 1 11/03/19 19 11:41 AM CDT documented as of this encounter Care Teams Electrical Accessories I Assembler Relationship Specialty Start Date End Date Lori Wyatt MD [facility] & [address] [address] PCP - General Internal Medicine 04/14/15 Bennett Morse MD [facility] [address] [address] Urology 04/14/15 Adelaida Winter MD [facility] [address] [address] Urology 06/28/15 Heber Trejo MD [address] [facility] [address] [place], [place] [address] Urology 09/07/15 Kamila Boggs, RN Registered Nurse Urology 09/07/15 09/10/22 Lori Wyatt MD [address] [address] Referring Physician Internal Medicine 09/07/15 Heber Trejo MD [address] [place] [address] [address] [place] [address] Assigned Surgical Provider 12/17/19 11/15/22 Tammy Maier CNP [address] [place] [address] Assigned Surgical Provider 11/16/22 05/16/23 Polly Wylie PA-C [address] [place] [address] Assigned Surgical Provider 05/17/23 documented as of this encounter
--- OUTSIDE RECORDS SUMMARY | 2024-04-13 22:36 | XMS_ITS | Continuity of Care Document ---
Author Organization [facility] Address [address] [place] [address] [address] [place] [address] Phone Care Team Providers Care Conveyor Tender Concrete Mixing Plant Name Role Phone Corey BEAVERS, Amijasmeet Unavailable Unavailable Procedures Procedure Date Office consultation, moderate 0 X-ray exam of neck spine2-3 views Advance Directives Directive Yes / No Effective Date File Name No Information Encounters Encounter Description Practice Location Reason(s) For Visit Diagnoses Date Provider Providers Copied on Encounter [facility], [address] [place] [address], [place], [address], [place] tel:[phone] [facility] No Information 2 Corey Live. [facility], [address] [place] [address] [address], [place], [place], [id number], [place]. tel:[phone] Office consultation, moderate Z [facility], [address] [place] [address], [place], [address], [place] tel:[phone] [facility] No Information 0 Virgilio Rojas. [facility], [address] [facility] , [place], [address], [place]. tel:[phone] Referring Provider: Last Donohue, [facility] [address] [place] [address], [address]. tel:[phone] Family History Family Member Type Diagnosis Age At Onset No Information Payers Payer name Insurance type Covered alliance party ID [facility] osborne[id number] Social History Type Description Quantity Date Captured [...]
--- OUTSIDE RECORDS SUMMARY | 2024-04-13 22:36 | XMS_ITS | Encounter Summary ---
Author Organization [facility] Address [address] [place] [address]. [place] [address] Care Team Providers Care General Office Clerk Name Role Phone Lori Wyatt MD Primary Care Provider Bennett Morse MD Unavailable [phone] Adelaida Winter MD Unavailable Unav ailable Heber Trejo MD Unavailable [phone] Kamila Boggs RN Unavailable [phone] Lori Wyatt MD Unavailable [phone] Heber Trejo MD Unavailable Tammy Maier CNP Unavailable [phone] Polly Wylie PA-C Unavailable [phone] Encounter Details Date Type Department Care Team (Late st Contact Info) Description 11/27/2020 [facility] U[facility] Clinic [place] [id number] [facility] [address] 4th [place] [address] Heber Trejo MD [address] [facility] [address] [place] [address] Social History Tobacco Use Types [...] AM CDT 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 Gender Identity Male 06/16/2020 9:59 AM CDT Sexual Orientation Not on file documented as of this encounter Plan of Treatment Upcoming Encounters Date Type Department Care Team (Late st Contact Info) Description 05/24/2024 1:30 PM CDT Virtual Visit [facility] Clinic [address] 4th [place] [address] Heber Trejo MD [address] [place] [address] documented as of this encounter Visit Diagnoses Not on filedocumented in this encounter Additional Health Concerns Assessment Noted Time PHQ-9 Depression Total Score: 1 11/03/19 19 11:41 AM CDT documented as of this encounter Care Teams General Office Clerk Relationship Specialty Start Date End Date Lori Wyatt MD [address] [address] PCP - General Internal Medicine 04/14/15 Bennett Morse MD [facility] [address] [address] Urology 04/14/15 Adelaida Winter MD [facility] [address] [address] Urology 06/28/15 Heber Trejo MD [address] [place] [address] Urology 09/07/15 Kamila Boggs, RN Registered Nurse Urology 09/07/15 09/10/22 Lori Wyatt MD [facility] & [address] [address] Referring Physician Internal Medicine 09/07/15 Heber Trejo MD [address] [facility] [address] [place] [address] Assigned Surgical Provider 12/17/19 11/15/22 Tammy Maier CNP [address] [place], [place] [address] Assigned Surgical Provider 11/16/22 05/16/23 Polly Wylie PA-C [address] [place] [address] Assigned Surgical Provider 05/17/23 documented as of this encounter
--- OUTSIDE RECORDS SUMMARY | 2024-04-13 22:36 | XMS_ITS | Encounter Summary ---
Author Organization [facility] Address [address] [place] [address] Care Team Providers Care Composite Laminator Name Role Phone Lori Wyatt MD Primary Care Provider Bennett Morse MD Unavailable Adelaida Winter MD Unavailable Unav ailable Heber Trejo MD Unavailable [phone] Kamila Boggs RN Unavailable [phone] Lori Wyatt MD Unavailable Heber Trejo MD Unavailable Tammy Maier CNP Unavailable [phone] Polly Wylie PA-C Unavailable Encounter Details Date Type Department Care Team (Late st Contact Info) Description 09/24/2016 [facility] [place] [facility] [place] [facility] [address] [facility] [address] 4th [place] [address] Heebr Trejo MD [address] [facility] [address] [place] [address] Social History Tobacco Use Types Packs/Day Years Used Date Smoking Tobacco: Never Smokeless Tobacco: Never Alcohol Use Standard Drinks/Week Comments Yes 0 (1 standard drink = 0.6 oz pur e alcohol) occ glass wine Sex and Gender Information Value Date Recorded Sex Assigned at Male 06/16/2020 9:59 AM CDT 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 Gender Identity Male 06/16/2020 9:59 AM CDT Sexual Orientation Not on file documented as of this encounter Plan of Treatment Upcoming Encounters Date Type Department Care Team (Late st Contact Info) Description 05/24/2024 1:30 PM CDT Virtual Visit [facility] Clinic [address] 4th [place] [address] Heber Trejo MD [address] [place] [address] [address] [place] [address] documented as of this encounter Visit Diagnoses Not on filedocumented in this encounter Care Teams Composite Laminator Relationship Specialty Start Date End Date Lori Wyatt MD [facility] [address] [place] [address] PCP - General Internal Medicine 04/14/15 Bennett Morse MD [facility] [address] [address] Urology 04/14/15 Adelaida Winter MD [facility] [address] [address] Urology 06/28/15 Heber Trejo MD [address] [place] [address] [address] [place] [address] Urology 09/07/15 Kamila Boggs, RN Registered Nurse Urology 09/07/15 09/10/22 Lori Wyatt MD [facility] [address] [place] [address] Referring Physician Internal Medicine 09/07/15 Heber Trejo MD 420 [facility] [address] [place] [address] Assigned Surgical Provider 12/17/19 11/15/22 Tammy Maier CNP [address] [place] [address] Assigned Surgical Provider 11/16/22 05/16/23 Polly Wylie PA-C [address] [place] [address] Assigned Surgical Provider 05/17/23 documented as of this encounter
--- OUTSIDE RECORDS SUMMARY | 2024-04-13 22:36 | XMS_ITS | Clinical Summary ---
Author Organization [facility] Address [address] [place] [address] Care Team Providers Care Ground Instructor Basic Name Role Phone Lori Wyatt MD Primary Care Provider Bennett Morse MD Unavailable Adelaida Winter MD Unavailable Unav ailable [facility] Unavailable [phone] Lori Wyatt MD Unavailable Polly Wylie PA-C [...] migh t be different from the original. 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 Gender Identity Male 06/16/2020 9:59 AM [...] Description 05/24/2024 1:30 PM CDT Virtual Visit [facility] Clinic [address] 4th [place] [address] Heber Trejo MD [address] [place] [address] Health Maintenance Due Date Last Done [...] Sodium 143 133 - 144 mmol/L [facility] Potassium 3.7 3.4 - 5.3 mmol/L [facility] Chloride 111(H) 94 - 109 mmol/L [facility] Carbon Dioxide 24 20 - 32 mmol/L [facility] Anion Gap 8 3 - 14 mmol/L [facility] Glucose 132(H) 70 - 99 mg/dL [facility] Urea Nitrogen 18 7 - 30 mg/dL [facility] Creatinine 1.23 0.66 - 1.25 mg/dL [facility] GFR Estimate 58(L) >60 mL/min/1.7 m2 [facility] Comment:Non GFR Calc GFR Estimate If Black 71 >60 mL/min/1.7 m2 [facility] Comment: GFR Calc Calcium 7.9(L) 8.5 - 10.1 mg/dL [facility] Blood specimen (specimen) 09/19/2015 5:16 AM CDT 09/19/2015 5:17 AM CDT us Lori Joseph MD LAB - BLOOD ORDERABLES Final Result Performing Organization Address City/State/[facility] Co de Phone Number [facility] [address] [place] [address] * (ABNORMAL) CBC with platelets (09/19/2015 5:16 AM CDT) WBC 9.0 4.0 - 11.0 10e9/L [facility] RBC Count 4.23(L) 4.4 - 5.9 10e12/L [facility] Hemoglobin 13.3 13.3 - 17.7 g/dL [facility] Hematocrit 37.2(L) 40.0 - 53.0 % [facility] MCV 88 78 - 100 fl [facility] MCH 31.4 26.5 - 33.0 pg [facility] MCHC 35.8 31.5 - 36.5 g/dL [facility] RDW 12.2 10.0 - 15.0 % [facility] Platelet Count 187 150 - 450 10e9/L [facility] Blood specimen (specimen) 09/19/2015 5:16 AM CDT 09/19/2015 5:17 AM CDT us Lori Joseph MD LAB - BLOOD ORDERABLES Final Result [facility] [address] [place] [address] * COLONOSCOPY (08/29/2004) us Lilliana.A. Applied Research Director PROCEDURES Final Result Performing Organization Address City/[facility]/ZIP Co de Phone Number [facility]/[place] [address] from Last 3 Months or Most Recently Relevant to Health Maintenance Insurance [facility] MEDICARE [facility] MEDICARE Advance Directives For more information, please contact: [phone] * Full Code (Latest Code Status on File) Date Activated Date Inactivated Comments 09/18/2015 4:08 PM 09/20/2015 4:59 PM * Full Code Date Activated Date Inactivated Comments 09/18/2015 2:44 PM 09/18/2015 4:08 PM Care Teams Ground Instructor Basic Relationship Specialty Start Date End Date Lori Wyatt MD [facility] [address] [place] [address] PCP - General Internal Medicine 04/14/15 Bennett Morse MD [facility] [address] [address] Urology 04/14/15 Adelaida Winter MD NPI: [id number] [place] [address] UROLOGY [address] [address] Urology 06/28/15 Heber Trejo MD 420 [facility] [address] [place] [address] Urology 09/07/15 Lori Wyatt MD [facility] & [address] [address] Referring Physician Internal Medicine 09/07/15 Polly Wylie PA-C [address] [place] [address] Assigned Surgical Provider 05/17/23
--- OUTSIDE RECORDS SUMMARY | 2024-04-13 22:36 | XMS_ITS | Clinical Summary ---
Author Organization [facility] Address [address] [place] [address] Care Team Providers Care Aerospace Medicine Physician Name Role Phone Unavailable Primary Care Provider Unavailabl e Source Comments Patient records contain information from all sites at [facility]. For routine questions regarding patient records, call [phone] during business hours, M-F 8:00 AM - 5:00 PM Central Time. Record requests for emergency care only can be directed to [phone] at any time.[facility] Allergies Active Allergy Reactions Criticality Noted [...] Department Care Team Description 01/26/2024 11:15 AM CURTAIN STITCHER Office Visit Department of Dermatology in [address] [address] Alejandro Shanks M.D. Keratosis Actinic (Primary Dx); [...] or relatives? Once a week 07/02/2022 Attends [employer] Not on file 07/02 Do you [...] care, and heating? Not very hard 07/02/2022 [facility] - Occupational Stress Questionnaire Answer Date [...] place to sleep or slept in a fci (including now)? No 07/02/2022 Nutrition Answer Date [...] Master's degree (e.g., MA, MS, Keysha, MEd, CRAP SHOOTER, CHERI) 02/24/2021 Sex and Gender Information Value Date Recorded Sex Assigned at Male 02/24/2021 10:06 AM CURTAIN STITCHER Legal Sex Male 9:54 AM CURTAIN STITCHER Gender Identity Male 02/24/2021 10:06 AM CURTAIN STITCHER Sexual Orientation Straight 02/24/2021 10 :06 AM CURTAIN STITCHER Last Filed Vital Signs Vital Sign Reading Time Taken Comments Blood Pressure 128/90 05/03/2021 9:00 AM CURTAIN STITCHER Pulse 59 05/03/2021 9:00 AM CURTAIN STITCHER Temperature - - Respiratory Rate - - Oxygen Saturation - - Inhaled Oxygen Concentration - - Weight - - Height - - Body Mass Index - - Plan of Treatment Upcoming Encounters Date Type Department Care Team (Late st Contact Info) Description 07/26/2024 1:30 PM CDT Office Visit Department of Dermatology in [address] [address] Alejandro Shanks M.D. [address] [place] [address] Discharge Disposition: Home or Self Care Health [...] patient's age to complete this topic Insurance [facility]
--- OUTSIDE RECORDS SUMMARY | 2024-04-13 22:36 | XMS_ITS | Encounter Summary ---
Author Organization [facility] Address [address] [place] [address] Care Team Providers Care Engineering Programmer Name Role Phone Lori Wyatt MD Primary Care Provider Bennett Morse MD Unavailable [phone] Adelaida Winter MD Unavailable Unav ailable Heber Trejo MD Unavailable + [phone] Kamila Boggs RN Unavailable [phone] Lori Wyatt MD Unavailable [phone] Heber Trejo MD Unavailable + [phone] Tammy Maier CNP Unavailable [phone] Polly Wylie PA-C Unavailable [phone] Encounter Details Date Type Department Care Team (Late st Contact Info) Description 06/28/2015 [facility] [address] [facility] [address] [place] [address] Adelaida Winter MD [place]CTIVE IN [place] OF 06/23/2020 Social History Tobacco Use Types Packs/Day Years Used Date Smoking Tobacco: Never Smokeless Tobacco: Never Alcohol Use Standard Drinks/Week Comments Yes 0 (1 standard drink = 0.6 oz pur e alcohol) occ glass wine Sex and Gender Information Value Date Recorded Sex Assigned at Male 06/16/2020 9:59 AM CDT 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 Gender Identity Male 06/16/2020 9:59 AM CDT Sexual Orientation Not on file documented as of this encounter Plan of Treatment Upcoming Encounters Date Type Department Care Team (Late st Contact Info) Description 05/24/2024 1:30 PM CDT Virtual Visit [facility] [address] [place] [address] Heber Trejo MD [address] [place] [address] [address] [place] [address] documented as of this encounter Visit Diagnoses Not on filedocumented in this encounter Care Teams Engineering Programmer Relationship Specialty Start Date End Date Lori Wyatt MD [address] [address] PCP - General Internal Medicine 04/14/15 Bennett Morse MD [facility] [address] [place] [address] Urology 04/14/15 Adelaida Winter MD [facility] [address] [address] Urology 06/28/15 Heber Trejo MD [address] [place] [address] [address] [place] [address] Urology 09/07/15 Kamila Boggs, RN Registered Nurse Urology 09/07/15 09/10/22 Lori Wyatt MD [facility] [address] [place] [address] Referring Physician Internal Medicine 09/07/15 Heber Trejo MD [address] [facility] [address] [place] [address] Assigned Surgical Provider 12/17/19 11/15/22 Tammy Maier CNP [address] [place] [address] Assigned Surgical Provider 11/16/22 05/16/23 Polly Wylie PA-C [address] [place] [address] Assigned Surgical Provider 05/17/23 documented as of this encounter
== END 2024-04-13 23:35 | disposition home or self-care (01) ==
PROVIDERS: Emergency Provider Student in an Organized Health Care Education/Training Program; PCP Family Medicine
DX: M79.651 Pain in right thigh (principal)
CPT/HCPCS: 93971; 99283; 99284

== ENCOUNTER 2024-12-23 07:59 | Outpatient (CLI) | payer MEDICARE, SELFPAY ==
--- NOTE | 2024-12-23 09:40 | P.ANES_ITS ---
Anesthesia Charges Start Date/Time Anesthesia Start Date: 12/23/24 Anesthesia Start Time: 09:02 Stop Date/Time Anesthesia Stop Date: 12/23/24 Anesthesia Stop Time: 09:35 Summary Extremes of Age - Over 70 or under 1: SHEET METAL FABRICATOR Coding CPT Codes CPT Codes: MONA LWR INTST NDSC NOS - 96378 ([id number]) P2 - PATIENT W/MILD SYST DISEASE, QK - WAX PATTERN ASSEMBLER 2-4 CNCRNT ANEMedardo PROC, QX - SHEET METAL FABRICATOR SVC W/ MD MED DIRECTION Additional Codes: Summary - Extremes of Age - Over 70 or under 1: SHEET METAL FABRICATOR ([id number])
--- NOTE | 2024-12-23 09:40 | W.ANESCHARGE ---
Anesthesia Charges Start Date/Time Anesthesia Start Date: 12/23/24 Anesthesia Start Time: 09:02 Stop Date/Time Anesthesia Stop Date: 12/23/24 Anesthesia Stop Time: 09:35 Summary Extremes of Age - Over 70 or under 1: TOWEL STRETCHER Coding CPT Codes CPT Codes: MONA LWR INTST NDSC NOS - 00262 ([id number]) P2 - PATIENT W/MILD SYST DISEASE, QK - ICING MACHINE OPERATOR 2-4 CNCRNT ANEMedardo PROC, QX - TOWEL STRETCHER SVC W/ MD MED DIRECTION Additional Codes: Summary - Extremes of Age - Over 70 or under 1: TOWEL STRETCHER ([id number])
--- NOTE | 2024-12-23 11:33 | P.ANES_ITS ---
Anesthesia Charges Start Date/Time Anesthesia Start Date: 12/23/24 Anesthesia Start Time: 09:02 Stop Date/Time Anesthesia Stop Date: 12/23/24 Anesthesia Stop Time: 09:35 Summary Extremes of Age - Over 70 or under 1: MDA Coding CPT Codes CPT Codes: ANES LWR INTST NDSC NOS - 24316 ([id number]) P2 - PATIENT W/MILD SYST DISEASE, QK - COLLATERAL CLERK 2-4 CNCRNT ANES PROC, QX - ICT ANALYST SVC W/ MD MED DIRECTION Additional Codes: Summary - Extremes of Age - Over 70 or under 1: HORACIO ([id number])
--- NOTE | 2024-12-23 11:33 | W.ANESCHARGE ---
Anesthesia Charges Start Date/Time Anesthesia Start Date: 12/23/24 Anesthesia Start Time: 09:02 Stop Date/Time Anesthesia Stop Date: 12/23/24 Anesthesia Stop Time: 09:35 Summary Extremes of Age - Over 70 or under 1: MDA Coding CPT Codes CPT Codes: ANES LWR INTST NDSC NOS - 06037 ([id number]) P2 - PATIENT W/MILD SYST DISEASE, QK - SENIOR PHYSICIAN 2-4 CNCRNT ANES PROC, QX - CONTROL INTEGRATION ENGINEER SVC W/ MD MED DIRECTION Additional Codes: Summary - Extremes of Age - Over 70 or under 1: HORACIO ([id number])
== END 2024-12-23 08:00 | disposition home or self-care (01) ==
LOC: OP CLINIC 08:00
PROVIDERS: PCP Family Medicine; Visit Provider Internal Medicine
DX: Z12.11 Encounter for screening for malignant neoplasm of colon (principal); D12.2 Benign neoplasm of ascending colon; D12.3 Benign neoplasm of transverse colon; K64.8 Other hemorrhoids; K57.30 Diverticulosis of large intestine without perforation or abscess without bleeding
CPT/HCPCS: 00811; 45385; 88305; 99100; J2704

== ENCOUNTER 2024-12-23 10:15 | Outpatient (CLI) | payer MEDICARE, SELFPAY | END 2024-12-23 10:16 | disposition home or self-care (01) | LOC: NFLDREF 12-24 13:19 | PROVIDERS: PCP Family Medicine; Referring Provider Family Medicine; Visit Provider Family Medicine | DX: R73.01 Impaired fasting glucose (principal); E78.5 Hyperlipidemia, unspecified; I10 Essential (primary) hypertension; R17 Unspecified jaundice | CPT/HCPCS: 80053; 80061; 82248 ==